=== PATIENT | female | born 1955 | race Caucasian/White ===

== ENCOUNTER 2017-08-28 14:39 | Emergency (ER) | payer OTHER, SELFPAY ==
[2017-08-28 14:41] VITALS: BP 161/86; PULSE 78; RESP 19; TEMP 36.3; O2SAT 97; BMI 25.8
--- NOTE | 2017-08-28 14:57 | ED.VISSUMM ---
- ER Visit Summary Date of Service: 08/28/17 Chief Complaint: Left fourth finger laceration History of Present Illness: The patient is a 62 F presenting with laceration to left fourth digit. This occurred just prior to arrival. She cut her hand on a piece of glass. The glass did not shatter. No other injuries. Her tetanus is up-to-date. Physical Examination: Vitals are stable. Patient is afebrile. Alert no acute distress. HEENT exam is unremarkable. Lungs are clear and equal bilaterally. Heart is regular rate and rhythm. Extremities left 4th digit 1.5 cm laceration. Tendon function is normal. AFROM, NVID Skin is warm and dry. No focal neurologic deficit. Remainder of exam is unremarkable. Emergency Department Course and Treatment: Laceration was repaired under sterile conditions. Anesthetized with lidocaine. Irrigated with saline. 3, 5-0 simple sutures were placed. Patient tolerated this well. Advised wound care instructions. Advised follow-up with primary care physician. Advised return to ED if worsening complaints. Disposition: Discharge home Impression: Left fourth finger laceration, laceration repair This note was generated with [employer] dictation software. It may contain incorrect words, spelling, and punctuation that were not noted in review of the chart prior to signing ED Disposition - Plan for ED Patient: Chief Complaint: Laceration Instructions: ED Laceration Hand Referrals: Lazaro Colby MD [Primary Care Provider] -
== END 2017-08-28 15:38 | disposition home or self-care (01) ==
LOC: ED 15:18
PROVIDERS: Emergency Provider Emergency Medicine; Family Provider Family Medicine; PCP Family Medicine
DX: S61.215A Laceration without foreign body of left ring finger without damage to nail, initial encounter (principal); W25.XXXA Contact with sharp glass, initial encounter; Y93.89 Activity, other specified; Y92.89 Other specified places as the place of occurrence of the external cause; Y99.8 Other external cause status
CPT/HCPCS: 12001; 99284

== ENCOUNTER → 2018-09-17 | Outpatient (CLI) | payer OTHER, SELFPAY ==
[2018-09-25 16:09] LABS: HPV APTIMA, High Risk Negative (Negative)
[2018-09-25 16:10] LABS: HPV Reflexed? YES, CHARGE PATIENT
== END | disposition home or self-care (01) ==
PROVIDERS: Family Provider Family Medicine; PCP Family Medicine; Referring Provider Obstetrics & Gynecology; Visit Provider Obstetrics & Gynecology
DX: Z12.4 Encounter for screening for malignant neoplasm of cervix (principal)
CPT/HCPCS: 87624; 88175; G0145

== ENCOUNTER → 2018-10-08 09:31 | Outpatient (CLI) | payer OTHER, SELFPAY ==
--- NOTE | 2018-10-08 09:37 | US_ITS ---
STUDY: ULTRASOUND BREAST - LEFT REASON FOR EXAM: Female, 63 years old. Palpable lump left breast. TECHNIQUE: Axial and longitudinal images of the LEFT breast were performed with a high resolution ultrasound transducer. COMPARISON: Comparison is made with prior mammogram done earlier today. FINDINGS: LEFT Breast: The palpable abnormality corresponds to a 2.4 cm x 2.3 cm x 1.4 cm cyst at the 1:00 position of the breast at 2 cm from the nipple. US/Breast Limited Unilateral IMPRESSION: The palpable abnormality corresponds to a 2.4 cm x 2.3 cm x 1.4 cm cyst at the 1:00 position breast at 2 cm from the nipple. ASSESSMENT CATEGORY: BIRADS Category 2: Benign. A letter regarding these results will be sent to the patient by the facility within 30 days. Electronically Signed: Corky Messina, at 10:44 EDT , Service support ,
--- NOTE | 2018-10-08 09:37 | BI_ITS ---
MAMMOGRAPHY - BILATERAL DIAGNOSTIC REASON FOR EXAM: Female, 63 years old. Left breast lump. PERTINENT HISTORY: Grandmother with breast cancer. TECHNIQUE: Digital bilateral breast ludwin (3D mammographic acquisition) in the CC and MLO projections. 2-D mediolateral oblique (MLO) and craniocaudad (CC) views of both breasts were obtained. CAD: Full Field Digital Mammography with Computer Added Detection was performed. COMPARISON: Comparison is made with prior mammogram dated December 05, 2016 and November 19, 2015. FINDINGS: Breast Composition: The breasts are extremely dense, which lowers the sensitivity of mammography. There is a 2.4 cm x 2.3 cm well-defined nodule in the upper slightly lateral aspect of the left breast. Correlation with ultrasound is recommended. No other significant abnormalities are identified. BI/DIAG MAMM W/CAD, BILAT IMPRESSION: 2.4 cm x 2.3 cm well-defined nodule in the upper slightly lateral aspect of the left breast. Correlation with ultrasound is recommended. ASSESSMENT CATEGORY: BIRADS Category 0: Incomplete. Need additional imaging evaluation. A letter regarding these results will be sent to the patient by the facility within 30 days. Approximately 10% of breast cancers are not detected by mammography. A normal mammogram should not delay biopsy of a clinically suspicious abnormality. Electronically Signed: Corky Messina, at 10:45 EDT , Service support ,
== END ==
PROVIDERS: Family Provider Family Medicine; PCP Family Medicine; Referring Provider Obstetrics & Gynecology; Visit Provider Obstetrics & Gynecology
DX: N63.23 Unspecified lump in the left breast, lower outer quadrant (principal)
CPT/HCPCS: 76642; 77062; 77066; G0279

== ENCOUNTER 2019-05-27 09:07 | Day surgery (SDC) | payer OTHER, SELFPAY ==
[2019-05-27 09:46] VITALS: BP 141/62; PULSE 75; RESP 16; TEMP 36.5; O2SAT 99; BMI 24.7
[2019-05-27] MEDS: Lactated Ringers 1,000 ML 100 ML IV (09:58)
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
[2019-05-27 11:16] VITALS: BP 141/62; BP 150/74; PULSE 68; RESP 16; TEMP 36.5; O2SAT 100
--- NOTE | 2019-05-27 11:16 | OP.COLON_ITS ---
Patient Name: Audra Mcconnell Procedure Date: 05/27/2019 10:45 AM Date of : 1955 Age: 63 Procedure: Colonoscopy Indications: Screening for colorectal malignant neoplasm Providers: Camila Snyder MD Referring MD: Lazaro Colby Medicines: Monitored Anesthesia Care Patient Profile: This is a 63 year old female. Last Colonoscopy: 10 years ago. Complications: No immediate complications. Procedure: Pre-Anesthesia Assessment: - Prior to the procedure, a History and Physical was performed, and patient medications and allergies were reviewed. The patient's tolerance of previous anesthesia was also reviewed. The risks and benefits of the procedure and the sedation options and risks were discussed with the patient. All questions were answered, and informed consent was obtained. Prior Anticoagulants: The patient has taken no previous anticoagulant or antiplatelet agents. ASA Grade Assessment: I - A normal, healthy patient. After reviewing the risks and benefits, the patient was deemed in satisfactory condition to undergo the procedure. After I obtained informed consent, the scope was passed under direct vision. Throughout the procedure, the patient's blood pressure, pulse, and oxygen saturations were monitored continuously. The pediatric colonoscope was introduced through the anus and advanced to the cecum, identified by the appendiceal orifice, ileocecal valve and palpation. The colonoscopy was performed without difficulty. The patient tolerated the procedure well. The quality of the bowel preparation was good. Scope In: 10:57:34 AM Scope Withdrawal Time 0 hours 8 minutes 46 seconds Scope Out: 11:12:11 AM Total Procedure Duration Time 0 hours 14 minutes 37 seconds Findings: Hemorrhoids were found on perianal exam. Multiple small-mouthed diverticula were found in the sigmoid colon and descending colon. Internal hemorrhoids were found during retroflexion. The hemorrhoids were Grade I (internal hemorrhoids that do not prolapse). The exam was otherwise without abnormality. Impression: - Hemorrhoids found on perianal exam. - Diverticulosis in the sigmoid colon and in the descending colon. - Internal hemorrhoids. - The examination was otherwise normal. - No specimens collected. Recommendation: - Discharge patient to home. - High fiber diet. - Continue present medications. - Repeat colonoscopy in 10 years for screening purposes. Procedure Code(s): --- Professional --- G0121, PT, Colorectal cancer screening; colonoscopy on individual not meeting criteria for high risk Diagnosis Code(s): --- Professional --- Z12.11, Encounter for screening for malignant neoplasm of colon K64.0, First degree hemorrhoids K57.30, Diverticulosis of large intestine without perforation or abscess without bleeding CPT copyright 2017 [employer]. All rights reserved. The codes documented in this report are preliminary and upon brick and block mason review may be revised to meet current compliance requirements. MD Camila Guy MD 05/27/2019 11:15:52 AM This report has been signed electronically. Number of Addenda: 0 Note Initiated On: 05/27/2019 10:45 AM
[2019-05-27 11:21] VITALS: BP 141/62; BP 164/82; PULSE 67; RESP 16; O2SAT 98
[2019-05-27 11:26] VITALS: BP 141/62; BP 167/95; PULSE 72; RESP 16; O2SAT 95
[2019-05-27 11:31] VITALS: BP 141/62; BP 167/85; PULSE 71; RESP 16; TEMP 36.4; O2SAT 100
[2019-05-27 12:04] VITALS: BP 141/62
== END 2019-05-27 12:13 | disposition home or self-care (01) ==
LOC: EN 09:08 → AC 09:09
PROVIDERS: Family Provider Family Medicine; PCP Family Medicine; Referring Provider Family Medicine; Visit Provider Surgery
PROC: 0DJD8ZZ Inspection of Lower Intestinal Tract, Via Natural or Artificial Opening Endoscopic (ICD-10-PCS; CPT 45378; principal; 2019-05-27 10:10)
DX: Z12.11 Encounter for screening for malignant neoplasm of colon (principal); K57.30 Diverticulosis of large intestine without perforation or abscess without bleeding; K64.0 First degree hemorrhoids; Z87.891 Personal history of nicotine dependence
CPT/HCPCS: 45378; J7120

== ENCOUNTER → 2019-07-25 16:41 | Outpatient (CLI) | payer OTHER, SELFPAY ==
[2019-07-25 16:30] VITALS: BMI 25.8
--- NOTE | 2019-07-25 16:43 | RAD_ITS ---
STUDY: X-RAY - LEFT KNEE REASON FOR EXAM: Female, 64 years old. fell 2 weeks ago, left medial pain TECHNIQUE: 3 view(s) of the knee. COMPARISON: None. FINDINGS: Normal visualized distal femur. Normal visualized proximal tibia and fibula. Normal proximal tibiofibular articulation. There is dystrophic ossification in the medial collateral ligament. There are mild age-appropriate degenerative changes. Normal medial femorotibial compartment. Normal lateral femorotibial compartment. Normal patellofemoral articulation. The soft tissue structures are unremarkable. RAD/Knee 4 or More Views IMPRESSION: No acute osseous injury. Electronically Signed: Maria T Munoz, at 17:09 EST Tel , Service support ,
== END ==
PROVIDERS: PCP Family Medicine; Referring Provider Physician Assistant; Visit Provider Physician Assistant
DX: S89.92XA Unspecified injury of left lower leg, initial encounter (principal)
CPT/HCPCS: 73564

== ENCOUNTER → 2019-11-25 16:36 | Outpatient (CLI) | payer OTHER, SELFPAY ==
[2019-07-25 17:43] VITALS: BMI 24.7
[2019-12-03 01:55] LABS: HPV APTIMA, High Risk Negative (Negative); HPV Reflexed? NOT INDICATED
== END ==
PROVIDERS: PCP Family Medicine; Visit Provider Obstetrics & Gynecology
DX: Z12.4 Encounter for screening for malignant neoplasm of cervix (principal)
CPT/HCPCS: 88175; G0145

== ENCOUNTER → 2019-12-09 07:44 | Outpatient (CLI) | payer OTHER, SELFPAY ==
[2019-07-25 17:43] VITALS: BMI 24.7
--- NOTE | 2019-12-09 07:46 | BI_ITS ---
MAMMOGRAPHY - BILATERAL SCREENING REASON FOR EXAM: Female, 64 years old. Routine annual screening examination. PERTINENT HISTORY: Mother with breast cancer. Grandmother with breast cancer. History of prior bilateral stereotactic breast biopsies. TECHNIQUE: Digital bilateral breast mary ann (3D mammographic acquisition) in the CC and MLO projections. 2-D mediolateral oblique (MLO) and craniocaudad (CC) views of both breasts were obtained. CAD: Full Field Digital Mammography with Computer Added Detection was performed. COMPARISON: Comparison is made with prior examination dated October 08, 2018 and December 05, 2016. FINDINGS: Breast Composition: The breasts are extremely dense, which lowers the sensitivity of mammography. Persistent nodule is seen in the upper deep slightly lateral aspect of the left breast. It presently measures 2.5 cm x 2.2 cm x 2.4 cm. This has increased slightly in size as compared to prior study. Prior sonogram demonstrated this to be a cyst. No other significant abnormalities are identified. BI/SCREEN MAMM (CAD) W/MARY ANN BILAT IMPRESSION: Slight increase in size of the previously seen nodule in the left breast as described. Correlation with ultrasound is recommended. ASSESSMENT CATEGORY: BIRADS Category 0: Incomplete. Need additional imaging evaluation. A letter regarding these results will be sent to the patient by the facility within 30 days. Approximately 10% of breast cancers are not detected by mammography. A normal mammogram should not delay biopsy of a clinically suspicious abnormality. [id number] Electronically Signed: Corky Messina, at 10:06 EDT , Service support ,
== END ==
PROVIDERS: PCP Family Medicine; Referring Provider Obstetrics & Gynecology; Visit Provider Obstetrics & Gynecology
DX: Z12.31 Encounter for screening mammogram for malignant neoplasm of breast (principal)
CPT/HCPCS: 77063; 77067

== ENCOUNTER → 2019-12-16 10:05 | Outpatient (CLI) | payer OTHER, SELFPAY ==
[2019-07-25 17:43] VITALS: BMI 24.7
--- NOTE | 2019-12-16 10:07 | US_ITS ---
STUDY: ULTRASOUND BREAST - LEFT REASON FOR EXAM: Female, 64 years old. Abnormal mammogram TECHNIQUE: Axial and longitudinal images of the LEFT breast were performed with a high resolution ultrasound transducer. # OF IMAGES: 8 COMPARISON: 10/08/2018 FINDINGS: LEFT Breast: In the area of concern, at 1:00, 2 cm from the nipple is a complex, septated anechoic cyst measuring 2.7 x 2.5 x 1.6 cm. Although it is mildly increased in size since the previous study continues to demonstrate no suspicious sonographic characteristics. It is anechoic, with posterior enhancement and clearly defined borders. No new suspicious shadowing solid nodules or architectural distortion. US/Breast Limited Unilateral IMPRESSION: Slight increase in size of a complicated, septated cyst at 1:00 2 cm of the nipple corresponding to the concerning lesion. No suspicious sonographic findings, if this cyst is bothersome to the patient should be able to be aspirated under sonographic guidance. ASSESSMENT CATEGORY: BIRADS Category 2: Benign. A letter regarding these results will be sent to the patient by the facility within 30 days. Electronically Signed: Javier Chambers MD at 11:26 EDT , Service support ,
== END ==
PROVIDERS: PCP Family Medicine; Referring Provider Obstetrics & Gynecology; Visit Provider Obstetrics & Gynecology
DX: N63.20 Unspecified lump in the left breast, unspecified quadrant (principal)
CPT/HCPCS: 76642

== ENCOUNTER → 2020-07-20 13:03 | Outpatient (CLI) | payer OTHER, SELFPAY ==
[2020-01-06 13:09] VITALS: BMI 24.7
== END ==
PROVIDERS: PCP Family Medicine; Visit Provider Family Medicine
DX: Z20.828 Contact with and (suspected) exposure to other viral communicable diseases (principal)
CPT/HCPCS: 87635; U0005; U0003

== ENCOUNTER 2020-07-23 09:37 | Emergency (ER) | payer OTHER, SELFPAY ==
[2020-01-06 13:09] VITALS: BMI 24.7
[2020-07-23] VITALS (8 sets, daily range): BP systolic 111–157; BP diastolic 65–75; PULSE 75–87; RESP 16–18; TEMP 35.9–36.8; O2SAT 94–98; BMI 25.9
--- NOTE | 2020-07-23 09:41 | NURSING ---
NO OLD EKGS
--- NOTE | 2020-07-23 09:53 | CT_ITS ---
STUDY: CTA CHEST REASON FOR EXAM: Female, 65 years old. Chest pain RADIATION DOSAGE (If Supplied By Facility): CTDIvol = ( 10.68 ) mGy, DLP = ( 287.19 ) mGycm TECHNIQUE: The examination was performed with the intravenous administration of IV 100mL Isovue-370. Post-processing of the angiographic images was performed, with multiplanar reformation and 3D reconstruction. Individualized dose optimization techniques were used for this CT. COMPARISON: None. FINDINGS: Mildly enlarged right axillary lymph nodes. Small left axillary lymph nodes. Normal enhancement of the main pulmonary artery and right and left pulmonary arteries. Normal enhancement of the bilateral peripheral pulmonary arteries. There is no demonstrated pulmonary embolism. Normal thoracic aorta and visualized great vessels. There is no demonstrated aortic dissection. Normal heart and pericardium. Normal mediastinum. Normal hilar regions. Normal visualized trachea and bronchi. The lungs are well expanded. Findings suggestive of scarring at both lung apices. There is a 9.5 mm x 9.7 mm scirrhous nodule in the posteromedial aspect of the right upper lobe. Infiltration in the posterior segment of the right upper lobe with evidence of a subpleural blebs. There is evidence of consolidation in the superior segment of the right lower lobe as well as in the peripheral aspect of the right middle lobe and left lower lobe. There is a 9.4 mm noncalcified nodule in the anterior aspect of the right middle lobe. This has increased in size as compared to prior study dated 10/10/2009. It previously measured 5 mm. Normal pleura. Normal chest wall structures. Normal osseous structures. Normal visualized upper abdomen. CT/CTA Chest W/WO Contrast IMPRESSION: Scarring at both lung apices with irregular nodule in the posterior aspect of the right upper lobe. Infiltration in both lungs as described worse in the left lower lobe. 9.4 mm noncalcified nodule in the anterior aspect of the right middle. Electronically Signed: Corky Messina MD at 12:00 EST , Service support ,
--- NOTE | 2020-07-23 09:53 | EKG12_ITS ---
Test Reason : CP Blood Pressure : / mmHG Vent. Rate : 079 BPM Atrial Rate : 079 BPM P-R Int : 172 ms QRS Dur : 074 ms QT Int : 382 ms P-R-T Axes : 075 039 063 degrees QTc Int : 438 ms Normal sinus rhythm Normal ECG Confirmed by EJ GAGNON, AMADO ([id number]), primer expeditor and drier DEJON CHEATHAM ([id number]) on 07/27/2020 9:55:23 AM Referred By: MIGUEL Confirmed By:MELINDA PAGAN MD
--- NOTE | 2020-07-23 09:56 | ED.VISSUMM ---
- ER Visit Summary Date of Service: 07/23/20 Chief Complaint: Chest pain History of Present Illness: The patient is a 65 F who presents with chest pain that has been getting worse over the past 5 days. Patient saw her primary care physician today who referred her to the emergency department. Patient had a recent COVID-19 test which was negative 3 days ago. Patient had a negative influenza swab today. Patient states she has pressure in her chest. Patient states it radiates into her back. Patient states it is worse when she stands up and moves. Patient states it is better when she rests. Patient admits to some shortness of breath and generalized weakness. Patient admits to some diaphoresis at night. Patient states she just feels weak all over. Patient also admits to generalized aches and myalgias. Physical Examination: Vital signs are stable. Patient is afebrile. Patient is in no acute distress. Oral mucosa is pink and moist. Neck is supple. Trachea is midline. There is no JVD noted. Heart was regular rate and rhythm. Lungs are clear and equal bilaterally. Abdomen is soft. Bowel sounds are normal. There is no tenderness. There is no rebound or guarding noted. Skin is warm dry. Cranial nerves II through XII are intact. There are no focal motor or sensory deficits noted. Extremities are intact. There is no calf tenderness or edema. Test Results: EKG was obtained. On my interpretation, there is a normal sinus rhythm with a rate of 79. There are no acute ST or T wave changes. IN interval was normal. QRS interval was normal. QT interval was normal. Ty Ty was normal. CBC shows a mild leukocytosis of 12.1. Basic metabolic profile was essentially within normal limits. Troponin is normal. CTA of the chest was obtained. There is scarring in the apices of the lungs bilaterally. There are infiltrates noted bilaterally but worse in the left lower lobe. Emergency Department Course and Treatment: Patient was given IV fluids. Patient was given aspirin and sublingual nitroglycerin. Patient was feeling better on reevaluation. Patient's vital signs remained stable. Patient is not hypoxic. Patient wants to go home. Patient was given a dose of Rocephin here. Patient was given oral dose of Zithromax. Patient was given a prescription for Zithromax. Patient was instructed to follow-up with her primary care physician in 5 to 7 days. Patient understood and was agreeable with the plan. All questions were answered. Disposition: Discharge home Impression: 1. Pneumonia This note was generated with [employer] dictation software. It may contain incorrect words, spelling, and punctuation that were not noted in review of the chart prior to signing ED Disposition - Plan for ED Patient: Disposition: Home or Assisted Living Diagnosis: Pneumonia Instructions: ED Pneumonia (Adult) Prescriptions: Azithromycin [Zithromax] 250 mg PO DAILY #4 tab Transmission Status: Pending to [facility]30 Referrals: Lazaro Colby MD [Primary Care Provider] -
[2020-07-23] MEDS: Aspirin 81 MG TAB.CHEW 324 MG PO (10:20)
[2020-07-23] MEDS: 0.9% Normal Saline 1,000 ML 1000 ML IV (10:22)
[2020-07-23 10:30] LABS: Basophil# 0.03 X10^3/uL; Basophil% 0.2 % (0-1); Eosinophil# 0.08 X10^3/uL; Eosinophils% 0.7 % (0-5); Hematocrit 40.7 % (37-47); Hemoglobin 14.8 g/dL (12.0-15.0); Lymphocyte % 10.8 % (19-41); Mean Corp Hgb Conc 36.4 g/dL (32-36); Mean Corpuscular Hgb 32.5 pg (27.0-32.0); Mean Corpuscular Volume 89.3 fL (81-99); Mean Platelet Vol. 9.9 fl (6.2-12.0); Monocyte# 0.65 X10^3/uL; Monocyte% 5.4 % (0-10); NRBC Flagged by Analyzer 0 % (0-5); Neutrophil # 9.95 X10^3/uL (2.7-7.7); Neutrophil % 82.6 % (47-70); Platelet Count 443 K/mm3 (150-450); RBC Distribution Width CV 12.1 % (11.6-14.6); RBC Distribution Width SD 39.8 fl (35.1-43.9); Red Blood Count 4.56 M/mm3 (4.2-5.4); White Blood Count 12.1 K/mm3 (4.4-11.0)
[2020-07-23 10:48] LABS: Anion Gap 8 (5-15); BUN 12 mg/dL (7-18); Calcium,Total 9.8 mg/dL (8.5-10.1); Chloride 98 mmol/L (98-107); Creatinine, Serum 0.75 mg/dL (0.55-1.02); EST Glomerular Filtration Rate 83 mL/min (>60); Est Glom Filt Rate - Afr Amer 100 mL/min (>60); Estimated Creatinine Clearance 71.87 ml/min; Glucose 119 mg/dL (74-106); Potassium 3.9 mmol/L (3.5-5.1); Sodium Level 134 mmol/L (136-145)
[2020-07-23] MEDS: Nitroglycerin SL (ED/IMG/CATH) 0.4 MG TABLET SUBLINGUAL ×3 (10:53→11:04)
[2020-07-23] MEDS: Azithromycin 250 MG Tablet 500 MG PO (12:27)
== END 2020-07-23 13:28 | disposition home or self-care (01) ==
PROVIDERS: Emergency Provider Emergency Medicine; PCP Family Medicine
DX: J18.9 Pneumonia, unspecified organism (principal); Z87.891 Personal history of nicotine dependence; Z79.82 Long term (current) use of aspirin
CPT/HCPCS: 71275; 80048; 84484; 85025; 93005; 96365; 99285; J7030; J7050; Q9967; A4216; J0696

== ENCOUNTER → 2021-04-05 10:40 | Outpatient (CLI) | payer OTHER, SELFPAY ==
--- NOTE | 2021-04-05 10:43 | BI_ITS ---
MAMMOGRAPHY - BILATERAL SCREENING REASON FOR EXAM: Female, 65 years old. Routine annual screening examination. PERTINENT HISTORY: Mother with breast cancer. Grandmother with breast cancer. Prior left ultrasound guided cyst drainage and bilateral stereotactic biopsies. TECHNIQUE: Digital bilateral breast mary ann (3D mammographic acquisition) in the CC and MLO projections. 2-D mediolateral oblique (MLO) and craniocaudad (CC) views of both breasts were obtained. CAD: Full Field Digital Mammography with Computer Added Detection was performed. COMPARISON: Comparison is made with prior study dated 12/09/2019 and 10/08/2018. FINDINGS: Breast Composition: The breasts are extremely dense, which lowers the sensitivity of mammography. There are no dominant masses or suspicious calcifications. The previously seen 2.5 sign by 2.2 cm nodule in the deep upper slightly outer aspect of the left breast is not seen at this time and is included with the patient''s prior cyst aspiration. No other significant abnormalities are identified. BI/SCRN MAMM (CAD)W/MARY ANN BILAT IMPRESSION: Stable bilateral screening mammogram. Yearly follow-up mammogram recommended. (A) ASSESSMENT CATEGORY: BIRADS Category 2: Benign. A letter regarding these results will be sent to the patient by the facility within 30 days. Approximately 10% of breast cancers are not detected by mammography. A normal mammogram should not delay biopsy of a clinically suspicious abnormality. [id number] Electronically Signed: Corky Messina MD at 12:15 EST , Service support ,
== END ==
PROVIDERS: PCP Family Medicine; Referring Provider Obstetrics & Gynecology; Visit Provider Obstetrics & Gynecology
DX: Z12.31 Encounter for screening mammogram for malignant neoplasm of breast (principal)
CPT/HCPCS: 77063; 77067

== ENCOUNTER → 2021-04-15 14:46 | Outpatient (CLI) | payer OTHER, SELFPAY ==
--- NOTE | 2021-04-15 14:55 | CT_ITS ---
STUDY: CT Chest W/O Contrast Injection 04/15/2021 3:46 PM REASON FOR EXAM: Female, 65 years old. LUNG NODULES Individualized dose optimization techniques were used for this CT. TECHNIQUE: Transaxial imaging was performed withoutIV contrast material. COMPARISON: 07.23.20. FINDINGS: There are degenerative changes of the shoulders. There is no pneumothorax. There is no demonstrated pleural abnormality. There is a 7.3 mm right middle lobe nodule. SE:2 IM: 62. Enlarged axillary lymph nodes. The infiltrates in the upper lobes have become more consolidated. This is concerning for pneumonia. Cervical spinal fusion hardware noted. There are calcifications of the coronary arteries. There are multiple small lymph nodes within the mediastinum, which are normal in size and morphology most compatible with reactive lymph hyperplasia. Normal hilar regions. Normal pulmonary arteries. There is atherosclerotic calcification of the aortic arch with tortuosity and elongation of the aortic arch and descending thoracic aorta. There are multi-level degenerative changes of the thoracic spine. There are no acute findings of the upper abdomen. CT/Chest without Contrast IMPRESSION: Decrease in size of the right middle lobe nodule. ACR Lung CT Screening Reporting T Data System (Lung-RADS) score: 2 - Benign Appearance or Behavior. Recommend continued annual screening with low-dose CT (LDCT) in 12 months. The infiltrates in the upper lobes have become more consolidated. This is concerning for pneumonia. Axillary adenopathy. Electronically Signed: David Silva MD at 16:33 EST , Service support ,
== END ==
PROVIDERS: PCP Family Medicine; Visit Provider Internal Medicine Critical Care Medicine
DX: R91.8 Other nonspecific abnormal finding of lung field (principal)
CPT/HCPCS: 71250

== ENCOUNTER → 2021-12-01 | Outpatient (CLI) | payer SELFPAY ==
[2021-12-06 20:05] LABS: HPV Reflexed? NOT INDICATED
== END | disposition home or self-care (01) ==
LOC: LABSPEC 16:09
PROVIDERS: PCP Family Medicine; Visit Provider Obstetrics & Gynecology
DX: Z12.4 Encounter for screening for malignant neoplasm of cervix (principal)
CPT/HCPCS: 88175; G0145

== ENCOUNTER → 2022-05-16 | Outpatient (CLI) | payer MEDICARE, SELFPAY ==
--- NOTE | 2022-05-16 08:33 | BI_ITS ---
MAMMOGRAPHY - BILATERAL SCREENING REASON FOR EXAM: Female, 66 years old. Routine annual screening examination. PERTINENT HISTORY: Mother with breast cancer. Grandmother with breast cancer. TECHNIQUE: Digital bilateral breast mary ann (3D mammographic acquisition) in the CC and MLO projections. 2-D mediolateral oblique (MLO) and craniocaudad (CC) views of both breasts were obtained. CAD: Full Field Digital Mammography with Computer Added Detection was performed. COMPARISON: Comparison is made with prior study dated 04/05/2021 and 12/09/2019 FINDINGS: Breast Composition: The breasts are extremely dense, which lowers the sensitivity of mammography. There are no dominant masses or suspicious calcifications. Stable benign-appearing bilateral axillary lymph nodes. No other significant abnormalities are identified. There has been no significant change since the prior study. BI/SCRN MAMM (CAD)W/MARY ANN BILAT IMPRESSION: Stable bilateral screening mammogram. Yearly follow-up mammogram recommended. (A) ASSESSMENT CATEGORY: BIRADS Category 2: Benign. A letter regarding these results will be sent to the patient by the facility within 30 days. Approximately 10% of breast cancers are not detected by mammography. A normal mammogram should not delay biopsy of a clinically suspicious abnormality. [id number] Electronically Signed: Corky Messina MD at 12:53 EST ,
== END | disposition home or self-care (01) ==
LOC: OPBI 08:29
PROVIDERS: PCP Family Medicine; Referring Provider Family Medicine; Visit Provider Family Medicine
DX: Z12.31 Encounter for screening mammogram for malignant neoplasm of breast (principal)
CPT/HCPCS: 77063; 77067

== ENCOUNTER → 2022-09-05 | Outpatient (CLI) | payer MEDICARE, SELFPAY ==
--- NOTE | 2022-09-05 07:13 | CT_ITS ---
INDICATION: Known nodule EXAMINATION: CT CHEST WITHOUT CONTRAST - CT Chest W/O Contrast Injection TECHNIQUE: Helically acquired images were obtained of the chest. A radiation dose optimization technique was used for this scan. IV Contrast dosage and agent: None. COMPARISON: 04/13/2021 FINDINGS: LUNGS, PLEURA AND LARGE AIRWAYS: Lung windows show stable nonspecific pleural thickening/scarring in the apices. Chronic interstitial changes noted in both lung bowman. There is a stable noncalcified 7.3 mm nodule in the right middle lobe on axial image 62. It is unchanged in 18 months. Another six-month follow-up is recommended to assure stability. If it is unchanged at that time no specific further follow-up would be needed. There is no organized infiltrate, effusion, or new suspicious noncalcified mass. THYROID: No thyroid lesions. HEART AND PERICARDIUM: Heart size is normal. No pericardial effusion. CORONARY ARTERIES: Coronary artery calcification is seen. VESSELS: Thoracic aorta is not dilated. MEDIASTINUM AND ANGELICA: No suspicious mediastinal or hilar adenopathy. Esophagus is unremarkable. No hiatal hernia. UPPER ABDOMEN: Limited cuts through the upper abdomen do not show a suspicious solid organ abnormality but there is a hint that there may be a dilated left hydronephrosis. Please correlate with clinical exam. BONES: No suspicious lytic or blastic abnormality. CT/Chest without Contrast IMPRESSION: Stable 7.3 mm noncalcified nodule in the right middle lobe . Another six-month follow-up is recommended to assure stability. If no interval changes noted at that time, no specific further follow-up would be needed. Stable fibrotic scarring in the lung apices. No acute pulmonary process Calcified coronary vessels Degenerative bony changes Limited cuts through the upper abdomen suggest possible obstructive uropathy in the left kidney. Please correlate with clinical exam Electronically Signed: Javier Chambers MD at 8:00 EDT ,
== END | disposition home or self-care (01) ==
LOC: CT 07:11
PROVIDERS: PCP Family Medicine; Referring Provider Internal Medicine Critical Care Medicine; Visit Provider Internal Medicine Critical Care Medicine
DX: R91.8 Other nonspecific abnormal finding of lung field (principal)
CPT/HCPCS: 71250

== ENCOUNTER → 2022-10-13 | Outpatient (CLI) | payer MEDICARE, SELFPAY ==
--- NOTE | 2022-10-13 14:51 | BD_ITS ---
STUDY: DUAL ENERGY X-RAY ABSORPTIOMETRY / DXA REASON FOR EXAM: Female, 67 years old. [id number] TECHNIQUE: Bone Mineral Density (BMD) measurements of lumbar spine and bilateral hips were obtained. COMPARISON: None. FINDINGS: Lumbar Spine (L1-L4): g/cm2 (1.494) / T-score (4.2) / Z-score (5.9) Findings are suggestive of normal bone density with a low fracture risk. Left Femur Total: g/cm2 (1.038) / T-score (0.8) / Z-score (2.0) Left Femoral Neck: g/cm2 (1.017) / T-score (1.5) / Z-score (3.0) Right Femur Total: g/cm2 (0.895) / T-score (-0.4) / Z-score (0.9) Right Femoral Neck: g/cm2 (0.844) / T-score (0.0) / Z-score (1.5) BD/Dexa Bone Density Study IMPRESSION: The patient is considered normal as outlined below according to World Pedro Organization (WHO) criteria with a low fracture risk. Reference Information: The T-score is the number of standard deviations above or below the standard which is normal for young adults at their peak bone mineral density. The World Health Organization (WHO) interprets the T-scores as follows: Above -1 Normal bone density Between -1 and -2.5 Osteopenia Equal to / or below -2.5 Osteoporosis As a practical clinical guideline, osteopenia may be graded as follows: Mild -1 through -1.5 Moderate -1.6 through -2.0 Severe -2.1 through -2.4 The Z-score is the number of standard deviations above or below age-matched controls. A Z-score of less than -1.5 would be considered abnormal. References: 1. NIH Osteoporosis and Related Bone Diseases www osteo.org 2. International Society for Clinical Densitometry www iscd.org 3. National Osteoporosis Foundation www nof.org Electronically Signed: Corky Messina MD at 14:12 EDT ,
== END | disposition home or self-care (01) ==
PROVIDERS: PCP Family Medicine; Referring Provider Family Medicine; Visit Provider Family Medicine
DX: Z78.0 Asymptomatic menopausal state (principal)
CPT/HCPCS: 77080

== ENCOUNTER → 2022-10-14 | Outpatient (CLI) | payer MEDICARE, SELFPAY ==
[2022-10-14 10:48] LABS: Anion Gap 5 (5-15); BUN 20 mg/dL (7-18); BUN/Creat Ratio 30.9 RATIO (10-20); Calcium,Total 9.2 mg/dL (8.5-10.1); Chloride 105 mmol/L (98-107); Cholesterol 233 mg/dL (200); Creatinine, Serum 0.65 mg/dL (0.55-1.02); EST Glomerular Filtration Rate 98 mL/min (>60); Est Glom Filt Rate - Afr Amer 118 mL/min (>60); Glucose 106 mg/dL (74-106); High Density Lipoprotein 80 mg/dL; Potassium 3.9 mmol/L (3.5-5.1); Sodium Level 138 mmol/L (136-145); Thyroid Stim Hormone (TSH) 4.66 uIU/mL (0.358-3.74); Triglycerides 138 mg/dL; Very Low Density Lipoprotein 28 mg/dL (5-40)
[2022-10-14 11:13] LABS: Hepatitis C Antibody Non-Reactive (Nonreactive); Vitamin D,25 Hydroxy 33.8 ng/mL
[2022-10-15 04:07] LABS: V-Zoster IgG (Immunity) 1376 index (Immune >165)
== END | disposition home or self-care (01) ==
LOC: MTLAB 08:51
PROVIDERS: PCP Family Medicine; Referring Provider Family Medicine; Visit Provider Family Medicine
DX: I87.8 Other specified disorders of veins (principal); R91.1 Solitary pulmonary nodule; G25.81 Restless legs syndrome; N63.0 Unspecified lump in unspecified breast; K21.9 Gastro-esophageal reflux disease without esophagitis; Z01.84 Encounter for antibody response examination; Z13.1 Encounter for screening for diabetes mellitus; Z11.59 Encounter for screening for other viral diseases; Z13.29 Encounter for screening for other suspected endocrine disorder; Z13.220 Encounter for screening for lipoid disorders
CPT/HCPCS: 36415; 80048; 80061; 82306; 84439; 84443; 86787; 86803

== ENCOUNTER → 2022-10-17 | Outpatient (CLI) | payer MEDICARE, SELFPAY ==
--- NOTE | 2022-10-17 08:06 | AAAS_ITS ---
Reason For Study: SCREENING Aorta Measurements Aorta Doppler Measurements Proximal aorta measures1.9 x 1.91cm. in cross- Peak systolic flow velocities within the proximal sectional axis. aorta measure 43.1 cm/sec. Proximal aorta measures1.91cm. in longitudinal Peak systolic flow velocities within the mid aorta axis. measure 45.8 cm/sec. Mid aorta measures2.04 x 2.02cm. in cross- Peak systolic flow velocities within the distal sectional axis. aorta measure 39.4 cm/sec. Mid aorta measures2.03cm. in longitudinal axis. Distal aorta measures1.51 x 1.41cm. in cross- sectional axis. Distal aorta measures1.42cm. in longitudinal axis. Left Iliac Artery Left iliac artery measures 1.07 x 1.0 cm. in the cross-sectional axis. Left iliac artery measures 1.0 cm. in the longitudinal axis. Peak systolic velocity in the left iliac artery measures 115.4 cm/sec. Right Iliac Artery Right iliac artery measures 1.13 x 1.09 cm. in the cross-sectional axis. Right iliac artery measures 1.01 cm. in the longitudinal axis. Peak systolic velocity in the right iliac artery measures 131.3 cm/sec. Procedure Aorta IVC Iliac vasculature or bypass grafts [id number]. Exam performed in department. VL/AAA Screening Interpretation Summary Aorta patent, normal caliber. Bilateral iliac arteries patent, normal caliber. Ordering Physician: Jose Carlos Nettles Referring Physician: Jose Carlos Nettles Performed By: Araceli Painter, HANY, RVT
--- NOTE | 2022-10-17 08:33 | US_ITS ---
STUDY: ULTRASOUND BREAST - LEFT REASON FOR EXAM: 67-year-old female with concerns for palpable left breast mass. TECHNIQUE: Real-time grayscale and color sonographic images of the upper breasts was performed. # OF IMAGES: 22 COMPARISON: Left breast ultrasound 12/16/2019. Mammogram from 05/16/2022, 04/05/2021. FINDINGS: The left breast upper breast in the clinical area of concern was assessed from the 11:00 to 2:00 position. At the site of palpable lump, there is a 1.4 x 2.0 x 1.0 cm simple appearing cyst at the 1:00 position approximately 2.0 cm from the nipple. This demonstrates clearly defined borders, anechoic echogenicity, and posterior acoustic enhancement with no abnormal vascularity. This is in the same location as a previously seen cyst and has decreased in size, previously measuring 2.7 x 2.5 x 1.6 cm. The remainder of the upper breast in the clinical area of concern was assessed demonstrating normal fibroglandular tissue with no abnormal masses. US/Breast Limited Unilateral IMPRESSION: 1.4 x 2.0 x 1.0 cm simple appearing cyst in the left breast at the 1:00 position, approximately 2.0 cm from the nipple has decreased in size from 2019. ASSESSMENT CATEGORY: BIRADS Category 2: Benign. A letter regarding these results will be sent to the patient by the facility within 30 days. RECOMMENDATION: Return to regularly scheduled annual screening mammogram in 6 months. If clinical concerns for new or enlarging palpable mass, follow-up with ultrasound and mammogram is recommended if clinically warranted. Electronically Signed: Tristan Wray MD at 11:33 EDT ,
== END | disposition home or self-care (01) ==
PROVIDERS: PCP Family Medicine; Referring Provider Family Medicine; Visit Provider Family Medicine
DX: N63.0 Unspecified lump in unspecified breast (principal); Z13.6 Encounter for screening for cardiovascular disorders; R92.8 Other abnormal and inconclusive findings on diagnostic imaging of breast
CPT/HCPCS: 76642; 76706

== ENCOUNTER → 2023-03-30 | Outpatient (CLI) | payer MEDICARE, SELFPAY ==
[2023-03-30 18:04] LABS: T4 Free Direct 0.84 ng/dL (0.76-1.46); Thyroid Stim Hormone (TSH) 3.69 uIU/mL (0.358-3.74)
== END | disposition home or self-care (01) ==
LOC: MTLAB 15:37
PROVIDERS: PCP Family Medicine; Referring Provider Family Medicine; Visit Provider Family Medicine
DX: R79.89 Other specified abnormal findings of blood chemistry (principal); Z79.899 Other long term (current) drug therapy
CPT/HCPCS: 36415; 84439; 84443

== ENCOUNTER → 2023-04-10 | Outpatient (CLI) | payer MEDICARE, SELFPAY ==
[2023-04-14 14:09] LABS: HPV APTIMA, High Risk Negative (Negative)
[2023-04-14 19:14] LABS: HPV Reflexed? YES, CHARGE PATIENT
== END | disposition home or self-care (01) ==
PROVIDERS: PCP Family Medicine; Visit Provider Nurse Practitioner Family
DX: Z00.00 Encounter for general adult medical examination without abnormal findings (principal)
CPT/HCPCS: 87624; 88175; G0145

== ENCOUNTER → 2023-04-24 | Outpatient (CLI) | payer MEDICARE, SELFPAY ==
--- NOTE | 2023-04-24 14:33 | US_ITS ---
STUDY: ULTRASOUND OF THE FEMALE PELVIS - COMPLETE REASON FOR EXAM: Female, 67 years old. Post menopausal bleeding LMP: TECHNIQUE: TECHNICAL QUALITY: Adequate. COMPARISON: None. FINDINGS: The uterus been surgically removed there is a midline structure towards the cervix which appears to be possibly an ovary measuring 2.1 x 1.2 cm. The technologist described this as the cervix however this may represent a medially located ovary rather than the cervix given its shape and morphology. There is no significant free fluid. The left ovary is not visualized. The pre void volume of the bladder was ml. The post void volume of the bladder was ml. Polycystic ovary disease: No. The bladder volume is 218. There is visualized mild wall thickening. US/Pelvic w/ Transvaginal IMPRESSION: Status post hysterectomy nonvisualization of the uterus. The ovaries are not well visualized. This patient states she had a oophorectomy not sure which ovary was removed. There is a structure within the pelvis that is morphologically suggestive of a medially located possibly right ovary, the differential include the possibility of nabothian cysts in the remaining cervix.. Given the clinical history recommend consideration for follow-up MRI of the pelvis. Electronically Signed: Leonila Atkins MD at 5:59 EST ,
== END | disposition home or self-care (01) ==
PROVIDERS: PCP Family Medicine; Referring Provider Nurse Practitioner Family; Visit Provider Nurse Practitioner Family
DX: N95.0 Postmenopausal bleeding (principal)
CPT/HCPCS: 76830; 76856

== ENCOUNTER → 2023-05-17 | Outpatient (CLI) | payer MEDICARE, SELFPAY ==
--- NOTE | 2023-05-17 07:51 | BI_ITS ---
MAMMOGRAPHY - BILATERAL SCREENING REASON FOR EXAM: Female, 67 years old. Routine annual screening examination. PERTINENT HISTORY: Mother with breast cancer. Grandmother with breast cancer. History of remote bilateral stereotactic breast biopsies. TECHNIQUE: Digital bilateral breast mary ann (3D mammographic acquisition) in the CC and MLO projections. 2-D mediolateral oblique (MLO) and craniocaudad (CC) views of both breasts were obtained. CAD: Full Field Digital Mammography with Computer Added Detection was performed. COMPARISON: Comparison is made with prior study dated May 16, 2022 and April 05, 2021. FINDINGS: Breast Composition: The breasts are extremely dense, which lowers the sensitivity of mammography. There are no dominant masses or suspicious calcifications. A tissue clip marker is seen in the upper lateral aspect of the right breast. This is unchanged. Stable bilateral axillary lymph nodes. No other significant abnormalities are identified. There has been no significant change since the prior study. BI/SCRN MAMM (CAD)W/MARY ANN BILAT IMPRESSION: Stable bilateral screening mammogram. Yearly follow-up mammogram recommended. (A) ASSESSMENT CATEGORY: BIRADS Category 2: Benign. A letter regarding these results will be sent to the patient by the facility within 30 days. Approximately 10% of breast cancers are not detected by mammography. A normal mammogram should not delay biopsy of a clinically suspicious abnormality. [id number] Electronically Signed: Corky Messina MD at 9:15 EST ,
== END | disposition home or self-care (01) ==
LOC: OPBI 07:50
PROVIDERS: PCP Family Medicine; Referring Provider Family Medicine; Visit Provider Family Medicine
DX: Z12.31 Encounter for screening mammogram for malignant neoplasm of breast (principal)
CPT/HCPCS: 77063; 77067

== ENCOUNTER → 2023-06-02 | Outpatient (CLI) | payer MEDICARE, SELFPAY ==
--- NOTE | 2023-06-02 08:31 | MRI_ITS ---
STUDY: MR PELVIS WITH T WITHOUT CONTRAST REASON FOR EXAM: Female, 68 years old. post menopausal bleeding, FEMALE PELVIS, NO PAIN TECHNIQUE: Standardized fat and water weighted pulse sequences were obtained in all 3 orthogonal planes, pre-and post contrast administration. IV CLARISCAN 15ML was administered for the contrast portion of the examination. COMPARISON: Pelvic ultrasound dated April 24, 2023 FINDINGS: Prior supracervical hysterectomy. The cervical canal contains numerous nabothian cysts and is abnormally and significantly thickened along the posterior and left side of the wall with masslike projection of the mucosa concerning for malignancy. A focal small 1.39 cm proximal cervical mass projecting into the canal is seen on image 15/32 series 5, that demonstrates enhancement on the postcontrast study, very concerning for malignancy until proven otherwise. The right ovary is non-visualized. There is no visualized right adnexal mass or complex lesion. The left ovary is non-visualized. There is no visualized left adnexal mass or complex lesion. There is no fluid in the cul-de-sac. Normal urinary bladder. Normal visualized small intestine. There are multiple colonic diverticula of the sigmoid colon consistent with chronic diverticulosis. There is no pelvic fluid. There is no pelvic mass lesion or lymphadenopathy. Normal osseous structures. Normal abdominal wall. MRI/Pelvis W/WO Contrast IMPRESSION: Abnormal thickened masslike appearance of the cervix concerning for malignancy. Refer to gynecology for further assessment. 1. Prior supracervical hysterectomy. The cervical canal contains numerous nabothian cysts and is abnormally and significantly thickened along the posterior and left side of the wall with masslike projection of the mucosa concerning for malignancy. A focal small 1.39 cm proximal cervical mass projecting into the canal is seen on image 15/32 series 5, that demonstrates enhancement on the postcontrast study, very concerning for malignancy until proven otherwise. Electronically Signed: Kurt Russ MD at 14:45 EST ,
[2023-06-02 08:57] LABS: CREATININE FINGERSTICK < 1.0 mg/dL (0.55-1.02); EGFR FINGERSTICK > 60.0000 mL/min (>60)
== END | disposition home or self-care (01) ==
PROVIDERS: PCP Family Medicine; Referring Provider Nurse Practitioner Family; Visit Provider Nurse Practitioner Family
DX: N95.0 Postmenopausal bleeding (principal)
CPT/HCPCS: 72197; A9575

== ENCOUNTER → 2024-02-19 | Outpatient (CLI) | payer MEDICARE, SELFPAY ==
[2024-02-19 17:54] LABS: Hematocrit 36.4 % (37-47); Mean Corpuscular Hgb 29.8 pg (27.0-32.0); Mean Corpuscular Volume 90.3 fL (81-99); Platelet Count 424 K/mm3 (150-450); RBC Distribution Width CV 12.8 % (11.6-14.6); RBC Distribution Width SD 42.5 fl (35.1-43.9); Red Blood Count 4.03 M/mm3 (4.2-5.4); White Blood Count 9.1 K/mm3 (4.4-11.0)
[2024-02-19 18:34] LABS: Anion Gap 6 (5-15); BUN 17 mg/dL (7-18); BUN/Creat Ratio 28.6 RATIO (10-20); Calcium,Total 9.5 mg/dL (8.5-10.1); Chloride 104 mmol/L (98-107); Creatinine, Serum 0.59 mg/dL (0.55-1.02); EST Glomerular Filtration Rate 107 mL/min (>60); Est Glom Filt Rate - Afr Amer 130 mL/min (>60); Glucose 119 mg/dL (74-106); Magnesium 1.6 mg/dL (1.6-2.6); Potassium 3.6 mmol/L (3.5-5.1); Sodium Level 138 mmol/L (136-145)
== END | disposition home or self-care (01) ==
LOC: MFPLAB 15:54
PROVIDERS: PCP Family Medicine; Visit Provider Family Medicine
DX: I10 Essential (primary) hypertension (principal)
CPT/HCPCS: 36415; 80048; 83735; 84443; 85027

== ENCOUNTER → 2024-05-27 | Outpatient (CLI) | payer MEDICARE, SELFPAY ==
--- NOTE | 2024-05-27 10:23 | BI_ITS ---
MAMMOGRAPHY - BILATERAL SCREENING 3-D TOMOSYNTHESIS REASON FOR EXAM: Female, 68 years old. SCREENING PERTINENT HISTORY: No significant family history. TECHNIQUE: 2-D mammograms and 3-D Tomosynthesis of the breast (s) were performed. CAD was performed. COMPARISON: 05/17/2023 FINDINGS: The breast composition is heterogeneously dense that can obscure small breast masses. Scattered benign calcifications are seen. No dense spiculated masses or suspicious microcalcifications are identified. No architectural distortion is identified. There is no skin thickening or retraction. There has been no significant change since the prior study. BI/SCRN MAMM (CAD)W/MARY ANN BILAT IMPRESSION: No mammographic signs of malignancy. Routine yearly mammograms recommended. ASSESSMENT CATEGORY: BIRADS Category 1: Negative. A letter regarding these results will be sent to the patient by the facility within 30 days. FOLLOW UP RECOMMENDATION: Yearly follow up mammogram recommended. (A) Approximately 10% of breast cancers are not detected by mammography. A normal mammogram should not delay biopsy of a clinically suspicious abnormality. Electronically Signed: Joe Louis MD at 20:43 EST ,
== END | disposition home or self-care (01) ==
LOC: OPBI 10:21
PROVIDERS: PCP Family Medicine; Referring Provider Family Medicine; Visit Provider Family Medicine
DX: Z12.31 Encounter for screening mammogram for malignant neoplasm of breast (principal)
CPT/HCPCS: 77063; 77067

== ENCOUNTER 2024-09-14 14:23 | Emergency (ER) | payer MEDICARE, SELFPAY ==
[2024-09-14 14:24] VITALS: BP 135/65; PULSE 77; RESP 19; TEMP 36.7; O2SAT 98
--- NOTE | 2024-09-14 14:54 | EX.ED.UPPERE ---
HPI History of Present Illness HPI Narrative: Patient presents with laceration to her left index finger that occurred today. Patient states she was sharpening a knife when it accidentally slipped and cut her finger. Patient states the bleeding has been persistent. Patient describes her pain as throbbing. Patient states it is worse when she bends her finger. Patient states it is better with rest. Patient denies any paresthesias or weakness. Patient states her last tetanus was on 09/26/2022. Chief Complaint: Laceration Informant: patient Occured/Mechanism Comment: Accidentally cut with a knife Onset/Context/Timing Onset: Today Context: Sudden Onset Timing: Continuous Quality of Pain: Throbbing Location: Left index finger Worsened by: Flexion Relieved by: Rest Associated Symptoms Associated Symptoms: Negative for Parasthesia, Weakness or Loss of Funtion [facility] Medical History (Updated 09/14/24 @ 16:[address] Gutierrez Rodriguez, DO) Hypertension Abnormal mammogram of left breast Chronic neck and back pain Shoulder pain Home Medications ?Medication ?Instructions ?Recorded ?Last Taken ?Type aspirin 81 mg tablet,delayed 81 mg PO DAILY 05/20/19 05/19/19 History release famotidine 20 mg tablet 20 mg PO DAILY 07/23/20 Unknown History multivitamin 1 ea PO DAILY 07/23/20 Unknown History alprazolam 0.5 mg tablet 0.5 mg PO DAILY PRN 06/15/23 Unknown History ipratropium bromide 42 mcg (0.06 2 spray intranasal BID 06/15/23 Unknown History %) nasal spray cephalexin 500 mg capsule 500 mg PO Q6 #40 CAPSULES 09/14/24 Unknown Rx Allergy/AdvReac Type Severity Reaction Status Date / Time clavulanic acid (From AdvReac Severe Nausea Verified 09/14/24 14:24 Augmentin) Family History Son Asthma Mother Breast cancer Hypertension Grandmother Breast cancer Brother Cancer liver cancer Grandfather Cancer prostate cancer Uncle Cancer prostate cancer Surgical History History of hysterectomy History of colonoscopy History of spinal surgery Social History Smoking Status: Former smoker alcohol intake: never substance use type: does not use ROS ROS ED Constitutional Constitutional ED: Denies chills or fever(s) Eyes Eyes: Denies blurry vision or change in vision ENT ENT ED: Denies rhinorrhea or sore throat Cardiovascular Cardiovascular: Denies chest pain or palpitations Respiratory/Chest Respiratory/Chest: Denies cough or dyspnea Gastrointestinal Gastrointestinal: Denies nausea or vomiting Genitourinary Genitourinary ED: Denies dysuria or hematuria Musculoskeletal Musculoskeletal: Denies back pain or neck pain Integumentary Denies abscess or rash Neurologic Neurologic: Denies headache(s) or weakness Allergic/Immunologic Allergic/Immunologic ED: Denies mouth swelling or urticaria EXAM Physical Exam Const Vital Signs: 09/14/24 14:24 Temperature 98.1 F Temperature Source Oral Pulse Rate 77 Respiratory Rate 19 H Blood Pressure 135/65 H Blood Pressure Mean 88 Pulse Ox 98 Oxygen Delivery Method Room Air Positive well nourished and well developed General Appearance ED: well developed and NAD HEENT Reports moist mucous membranes Neck full ROM and supple Extremity Extremity Narrative: There is a 1.5 cm curvilinear laceration of the dorsal aspect of the left index finger. There is moderate bleeding noted. There is mild gapping of the wound margins. Sensation was intact to light touch in all digits. Capillary refill was less than 2 seconds in all digits. Patient was unable to extend the PIP and DIP joints against resistance. Patient had good flexion of the PIP and DIP joints. Neuro oriented x3, CN's II-XII intact bilaterally, moves all extremities, no focal motor deficits and no sensory deficits noted Sensorium / Orientation: alert Motor Exam: strength 5/5 throughout Psych mental status grossly normal Skin Trauma: laceration linear, actively bleeding, involves subcutaneous tissue, motor nerve function intact and sensation intact MDM MDM MDM Narrative Medical decision making narrative: Differential diagnosis includes skin laceration, tendon laceration, open fracture, and contusion. X-rays of the left index finger will be obtained to assess for fracture and foreign body. Radiography Diagnostic Testing: X-rays of the left finger were obtained. There are 3 views. On my independent interpretation, there is no acute fracture. There is no foreign body noted. Radiologist also interpreted the x-rays and agrees. Treatment and Re-Evaluation Narrative: The wound was cleaned and irrigated with copious amounts of normal saline. The wound was anesthetized with 1% plain lidocaine via digital block. The wound was closed with 3 simple interrupted #4-0 nylon sutures under sterile technique. Patient tolerated the procedure well. Bacitracin dressing was applied. Patient was given a dose of Keflex here. Patient is given a prescription for Keflex. Patient was placed in AlumaFoam splint. Case was discussed with Dr. Ledesma from plastic surgery. He will follow-up with the patient on Monday. Patient understood and was agreeable with the plan. All questions were answered. Discharge Plan Triage Chief Complaint: Laceration ED Provider: Gutierrez Rodriguez Dx/Rx/DC Orders Clinical Impression: Laceration of left index finger w/o foreign body w/o damage to nail, Extensor tendon laceration of finger with open wound Instructions: ED Laceration, Hand: All Closures, ED Tendon Laceration Prescriptions: New cephalexin 500 mg capsule 500 mg PO Q6 Qty: 40 0RF No Action aspirin 81 MG tablet,delayed release (DR/EC) 81 mg PO DAILY Patient Comments: stop 1 week prior to colonoscopy multivitamin 1 EACH tablet 1 ea PO DAILY famotidine 20 MG tablet 20 mg PO DAILY Primary Care Provider: Nando Nettles Referrals: Nando Nettles MD [Primary Care Provider] - Harshil Ledesma MD [Med Staff - Active Staff] - 2 Days Activity Restrictions/Additional Instructions: Dr. Ledesma's office will call you Monday to schedule the appointment Monday Print Language: Faroese Disposition Disposition: Home, Self Care
[2024-09-14] MEDS: Lidocaine 1% (20 ml mdv) 20 ML Vial INFILT (15:01)
--- NOTE | 2024-09-14 15:10 | RAD_ITS ---
PROCEDURE: FINGER(S) MIN 2 VIEWS 09/14/2024 REASON FOR EXAM: INJURY/PAIN TECHNIQUE: 3 view(s) of the left 2nd finger COMPARISON: None. FINDINGS: Bones: No acute osseous fracture. No aggressive osseous lesions. Joints: Normal alignment. Joint spaces preserved. No arthropathic features. Soft tissues: No soft tissue gas. No radiopaque foreign body. RAD/Finger(s) Min 2 Views IMPRESSION: NEGATIVE FINGER SERIES Reading Location: [id number]
--- NOTE | 2024-09-14 15:52 | CM.ED ---
Social Work: rehabilitation worker verified advanced care directives are in patient's electronic medical records. Mallory Childers, [employer]LECT[employer]ICIAN [employer]ENTICE [employer], DESKTOP MANAGER
[2024-09-14] MEDS: Cephalexin 500 MG Capsule PO (16:30)
== END 2024-09-14 16:39 | disposition home or self-care (01) ==
PROVIDERS: Emergency Provider Emergency Medicine; PCP Family Medicine; Visit Provider Emergency Medicine
DX: S66.321A Laceration of extensor muscle, fascia and tendon of left index finger at wrist and hand level, initial encounter (principal); S61.211A Laceration without foreign body of left index finger without damage to nail, initial encounter; W26.0XXA Contact with knife, initial encounter; I10 Essential (primary) hypertension; Z79.82 Long term (current) use of aspirin; Z87.891 Personal history of nicotine dependence
CPT/HCPCS: 12001; 73140; 99284

== ENCOUNTER 2024-09-18 12:19 | Day surgery (SDC) | payer MEDICARE, SELFPAY ==
[2024-09-18] VITALS (7 sets, daily range): BP systolic 137–150; BP diastolic 61–71; PULSE 71–83; RESP 16–20; TEMP 35.7–36.6; O2SAT 97–100; BMI 25.9
--- NOTE | 2024-09-18 10:31 | PCM.HP.STD ---
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 The injury occurred on Monday, 15 September 2024, when she was sharpening a knife and accidentally cut herself. She went to the emergency department where she was washed out and closed and placed on antibiotics. She was referred to our clinic. Patient is not a smoker. No personal or family history of bleeding or clotting problems or problems with anesthesia. Caprini score is 4 Her tetanus is up-to-date from 2022 She has no prior history of hand trauma in this location. Current Encounter (DATE OF SURGERY H&P UPDATE): I saw and examined the patient this morning in pre-operative holding. We discussed risks and benefits of today's surgery and they would like to proceed. NO CHANGE in health history since last seen and evaluated. Ready to proceed with surgery. REPLACED BY [facility] Medical History Wears glasses Wears partial dentures Cancer Restless legs Former smoker GERD (gastroesophageal reflux disease) Breast cyst Arthritis Hypertension Abnormal mammogram of left breast Chronic neck and back pain Shoulder pain Home Medications ?Medication ?Instructions ?Recorded ?Last Taken ?Type famotidine 20 mg tablet 20 mg PO QHS 07/23/20 Unknown History multivitamin 1 ea PO DAILY 07/23/20 Unknown History alprazolam 0.5 mg tablet 0.5 mg PO DAILY PRN 06/15/23 Unknown History ipratropium bromide 42 mcg (0.06 2 spray intranasal BID 06/15/23 Unknown History %) nasal spray cephalexin 500 mg capsule 500 mg PO Q6 #40 CAPSULES 09/14/24 09/18/24 09:00 Rx estradiol 0.5 mg tablet 0.5 mg PO DAILY 09/17/24 Unknown History losartan 50 mg tablet 50 mg PO DAILY 09/17/24 Unknown History doxycycline hyclate 100 mg capsule 100 mg PO BID 7 days #14 caps 09/18/24 Unknown Rx oxycodone 5 mg tablet 5 mg PO Q12H PRN pain 5 days #10 09/18/24 Unknown Rx tabs Allergy/AdvReac Type Severity Reaction Status Date / Time clavulanic acid (From AdvReac Severe Nausea Verified 09/18/24 13:02 Augmentin) Family History Son Asthma Mother Breast cancer Hypertension Grandmother Breast cancer Brother Cancer liver cancer Grandfather Cancer prostate cancer Uncle Cancer prostate cancer Surgical History Status post Mohs surgery History of hysterectomy History of colonoscopy History of spinal surgery Social History Smoking Status: Former smoker how long ago did patient quit smoking: quit 2005 alcohol intake: never substance use type: does not use additional social history: pt denies vaping, denies edibles, denies marijuana use Denies family history of blood clots Physical Exam Narrative Left upper Extremity Inspection: Left index finger with 2.5 cm laceration just proximal to the PIP joint on the dorsum. She has an obvious boutonniere deformity. Palpation: No collateral ligament instability at the PIP joint of the left index finger. She has intact and normal passive range of motion of the index finger PIP joint limited only by pain. Motor: Able to bend and extend all MP, PIP, and DIP joints, except she is unable to extend the PIP joint of the left index finger. She has a positive Alon's test. Sensory: Intact to light touch on the radial and ulnar borders. Sensation to light touch intact distal to the zone of injury. Vascular: Finger tips are warm and well perfused with <2 second capillary refill. Assessment & Plan Assessment/Plan (1) Central slip extensor tendon injury (boutonniere): PLAN: Plan X-ray reviewed no bony abnormality but boutonniere deformity seen on the x-ray. I talked her about the boutonniere deformity and how the central slip was lacerated and the lateral bands are displaced volarly and are hyperextending the DIP joint. I talked to the patient extensively about the risks of surgery, including bleeding, infection, hardware failure, hardware infection, damage to surrounding structures, poor scaring, surgical site dehiscence and wound formation, need for wound care, need for repeat operations, failure to obtain the desired result, and the risks of anesthesia. We talked about stiffness and inability to flex the finger at the PIP joint as well as before. The benefits and alternatives of this surgery were also discussed. All of their questions were answered, and they agreed to proceed with surgery. I talked to her about the problems of the location of the injury. She has a laceration of the extensor tendon as it inserts into the central slip insertion on the middle phalanx. I talked her about my concerns for primary repair, mainly being that there will be minimal distal stump for repair (need approximately 1 cm for strong repair). Therefore I talked to her about the potential for primary repair with a suture anchor in the middle phalanx (hardware, implantable and permanent). This would be an option if there is a sharp transection of the tendon without any fraying and no gap. I talked to her about the problem of there being a potential gap with contracted/diminutive tendon endings. If there is a gap, then she would require acute reconstruction with the use of either an EDC local flap reconstruction (Snow technique) or with use of the lateral bands (Matev technique). Both of these techniques also would include the use of a suture anchor, and we talked about the risk of suture anchor failure or suture failure and repair failure. She would like to proceed with surgery. Patient placed back in a splint and told to finish her antibiotics. Follow-up later this week for central slip repair. CPT codes for insurance prior authorization are as follows: [id number] INTERVAL H&P PLAN, DATE OF SURGERY: We will proceed with surgery today. I marked the left index finger
--- NOTE | 2024-09-18 10:33 | OP.PCM_ITS ---
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 [employer] Executive: Jeanne Angel Tasks completed by pharmacy assistant: Retracting Type of Anesthesia: MAC/Supplemental (10 cc of 50/50 mixture of 1% lidocaine and 0.25% Marcaine ) RN Documented Start/Stop Times: Operation Date: 09/18/24 14:10 Case Time Into Pre-Op 09/18/24 12:49 Out of Pre-Op 09/18/24 14:16 Anesthesia Start 09/18/24 14:21 Into Room 09/18/24 14:21 Procedure Start 09/18/24 14:47 Procedure End 09/18/24 15:35 Anesthesia End 09/18/24 15:41 Out of Room 09/18/24 15:41 Into Recovery 09/18/24 15:43 Out of Recovery 09/18/24 15:57 Into Phase II Recovery 09/18/24 15:58 Procedure Start Time: 14:47 Procedure Stop Time: 15:35 Select all DRAINS/GRAFTS/IMPLANTS that apply: Implanted device (Suture anchor) Implanted device details: Noelle corkscrew Arthrex 1.7 mm x 1.5 mm Estimated Blood Loss: minimal Specimen collected: No Description of surgery: Indications: Audra Mcconnell is a delightful 69-year-old female who sustained a laceration to her left index finger dorsum lacerating her EDC tendon at/just proximal to the central slip insertion. She subsequently developed an acute boutonniere deformity. She presents today for repair. I discussed with her the risks, benefits, and alternatives to repair, and she elected to proceed. Procedure details: Patient was quickly identified in preoperative holding and taken back to the operative room where she was administered sedation and a local block. He was given time to take effect and she was prepped and draped in sterile fashion. A timeout was performed. Sutures were removed. Tourniquet on the arm was inflated to 250 mmHg after exsanguination. The horizontal laceration was extended into a proximal ulnar incision and a distal radial incision to make a Z-type incision for exposure of the underlying injury. The wound was irrigated with copious amounts of normal saline and Irrisept. The central slip was noted to be lacerated with minimal residual distal tendon stump (could not be repaired without a suture anchor or bone tunnel). Decision was therefore made to use a suture anchor with 3-0 FiberWire. Using the C arm as guidance, a suture anchor was drilled into the dorsal base of the middle phalanx with care taken to be outside the joint and within the footprint of the central slip. The suture tails were then used to suture the EDC central slip back into position over the houlton footprint using a cruciate repair and a tie. 2 [id number] 3-0 FiberWire sutures were then placed on the sides of the repair to further reinforce the repair. Patient had excellent cascade with passive tenodesis normal appearing resting index finger (improvement as she was resting in a boutonniere deformity before the repair). The tourniquet was let down and hemostasis was obtained with bipolar electrocaut petra. The wounds were closed with interrupted horizontal mattress 4-0 nylon suture. A 0.035 K wire was used to stabilize the left index finger PIP joint in extension. Xeroform, Webril and a plaster splint were applied. Patient was awakened and taken the PACU in stable condition. She tolerated the procedure well. Postoperative plan: Follow-up in 1 week for wound check and splint change. Plan to pull K wire and begin hand therapy in 2 weeks. Surgical Findings: Lacerated central slip insertion with no distal central slip stump for repair over the footprint thus indicating use of a suture anchor. Complications Complications: No Admit VTE Documentation VTE Mechan Device Prophylaxis: SCD's
--- NOTE | 2024-09-18 12:39 | PCM.PRE.AN2 ---
ASA Classification* ASA Classification ASA Classification: 2 Assessment & Plan Anesthesia* Anesthesia Assessment Anesthesia Assessment: Discussed sedation and/or anesthesia options, risks, benefits, and alternatives with patient/parents/legal guardian/POA. Questions invited. The patient/parents/legal guardian/POA seems to understand and agrees to proceed with anesthesia plan. Reviewed the physical assessment, medical history, allergy history and patient home medications list prior to surgery/procedure/anesthetic and documented any changes. Performed airway and anesthesia risk assessments. Anesthesia Type Anesthesia Type: MAC Anesthesia Focused Assessment* Airway Assessment Mouth opens: >3 cm Mallampati Score: II Focused Labs Anesthesia Preop lab: CBC WBC 9.1 K/mm3 (4.4-11.0) 02/19/24 15:54 02/19/24 RBC 4.03 M/mm3 (4.2-5.4) L 02/19/24 15:54 02/19/24 Hgb 12.0 g/dL (12.0-15.0) 02/19/24 15:54 02/19/24 Hct 36.4 % (37-47) L 02/19/24 15:54 02/19/24 Plt Count 424 K/mm3 (150-450) 02/19/24 15:54 02/19/24 CHEMISTRY Potassium 3.6 mmol/L (3.5-5.1) 02/19/24 15:54 02/19/24 Sodium 138 mmol/L (136-145) 02/19/24 15:54 02/19/24 Magnesium 1.6 mg/dL (1.6-2.6) 02/19/24 15:54 02/19/24 BUN 17 mg/dL (7-18) 02/19/24 15:54 02/19/24 Creatinine 0.59 mg/dL (0.55-1.02) 02/19/24 15:54 02/19/24 Glucose 119 mg/dL (74-106) H 02/19/24 15:54 02/19/24 TSH 3.020 uIU/mL (0.358-3.740) 02/19/24 15:54 02/19/24 COAG Pre-Assessment Diagnosis/Proposed Procedure Planned Operative Procedure(s): CENTRAL SLIP LACERATION, LEFT INDEX FINGER BOUTONNIERE DEFORMITY Anesthesia History 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 When Was Last Pacemaker Check QUESTION #4 FULL TEXT: You/Your Family Experience fever (hyperthermia) with Anesthesia Last Oral Intake Last Oral intake: Last Oral Intake NPO since Meds taken in AM with sips of water? Meds patient instructed to take am of surgery PONV PONV - sap treasury consultant: PONV - sap treasury consultant Female Yes 09/17/24 13:08 HX of Motion Sickness No 09/17/24 13:08 HX of N/V After Surgery No 09/17/24 13:08 Non-Smoker Yes 09/17/24 13:08 Duration of Surgery greater Yes 09/17/24 13:08 than 60 minutes Number of Risk Factors 3 09/17/24 13:08 PONV Score Moderate Risk 09/17/24 13:08 Height & Weight Height & Weight: Anesthesia: Height & Weight Height 5 ft 5 in 09/16/24 16:32 Respiratory Assessment Respiratory Assessment - sap treasury consultant: Respiratory Tract Infection Hx - sap treasury consultant Hx Respiratory Tract Infection No 09/17/24 13:08 STOP Sleep Apnea STOP Sleep Apnea - sap treasury consultant: STOP Sleep Apnea - sap treasury consultant Hx Hypertension Yes: CONTROLLED WITH MED 09/17/24 13:08 Hx Sleep Apnea No 09/17/24 13:08 CPAP BIPAP Do you snore loudly (louder No 09/17/24 13:08 than talking or can be heard Do you often feel tired/ No 09/17/24 13:08 fatigued/ sleepy during daytime? Has anyone observed you stop No 09/17/24 13:08 breathing during sleep? STOP Results Negative 09/17/24 13:08 QUESTION #5 FULL TEXT : Do you snore loudly (louder than talking or can be heard through closed doors)? 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 Specify any problems Hx of Preganancy in last 3 N/A 09/17/24 13:08 Months Nurse Filling Out Transfusion NBUCHER 09/17/24 13:08 & Questions: Date: 09/17/24 09/17/24 13:08 Time: 13:10 09/17/24 13:08 Patient unable to answer at this time (ie. confused, unrespo /Reproduction History /Reproductive History - sap treasury consultant: /Reproductive Hx- sap treasury consultant Hx Now No 09/17/24 13:08 Gestational Age (in weeks): EDC: Hx Hx Para Hx Section SAB No 09/17/24 13:08 [facility] Medical History Wears glasses Wears partial dentures Cancer Restless legs Former smoker GERD (gastroesophageal reflux disease) Breast cyst Arthritis Hypertension Abnormal mammogram of left breast Chronic neck and back pain Shoulder pain Home Medications ?Medication ?Instructions ?Recorded ?Last Taken ?Type famotidine 20 mg tablet 20 mg PO QHS 07/23/20 Unknown History multivitamin 1 ea PO DAILY 07/23/20 Unknown History alprazolam 0.5 mg tablet 0.5 mg PO DAILY PRN 06/15/23 Unknown History ipratropium bromide 42 mcg (0.06 2 spray intranasal BID 06/15/23 Unknown History %) nasal spray cephalexin 500 mg capsule 500 mg PO Q6 #40 CAPSULES 09/14/24 Unknown Rx estradiol 0.5 mg tablet 0.5 mg PO DAILY 09/17/24 Unknown History losartan 50 mg tablet 50 mg PO DAILY 09/17/24 Unknown History doxycycline hyclate 100 mg capsule 100 mg PO BID 7 days #14 caps 09/18/24 Unknown Rx oxycodone 5 mg tablet 5 mg PO Q12H PRN pain 5 days #10 09/18/24 Unknown Rx tabs Allergy/AdvReac Type Severity Reaction Status Date / Time clavulanic acid (From AdvReac Severe Nausea Verified 09/17/24 13:06 Augmentin) Family History Son Asthma Mother Breast cancer Hypertension Grandmother Breast cancer Brother Cancer liver cancer Grandfather Cancer prostate cancer Uncle Cancer prostate cancer Surgical History Status post Mohs surgery History of hysterectomy History of colonoscopy History of spinal surgery Social History Smoking Status: Former smoker how long ago did patient quit smoking: quit 2005 alcohol intake: never substance use type: does not use additional social history: pt denies vaping, denies edibles, denies marijuana use Denies family history of blood clots Review of Systems (Anesthesia) ROS Narrative System reviewed and no additional complaints, except as documented.
--- NOTE | 2024-09-18 13:10 | RAD_ITS ---
PROCEDURE: FINGER(S) MIN 2 VIEWS 09/18/2024 REASON FOR EXAM: CENTRAL SLIP LACERATION, LEFT INDEX FINGER BOUTONNIERE DEFORMITY TECHNIQUE: 6 fluoroscopic images were submitted. Fluoroscopy time was 35 seconds. Peak skin radiation dose was 0.19 mGy. COMPARISON: 09/14/2024 FINDINGS: See impression RAD/Finger(s) Min 2 Views IMPRESSION: Fixation screw placed along the dorsal base of the 2nd middle phalanx. See operative report for further details. Reading Location: [facility]
[2024-09-18] MEDS: Lactated Ringers 1,000 ML 15 ML IV (13:13)
[2024-09-18] MEDS: Cefazolin 2 GM in Syringe IV (14:26)
[2024-09-18] MEDS: Bupivacaine 0.25% 30 ML Vial (14:44)
[2024-09-18] MEDS: Lidocaine 1% (20 ml mdv) 20 ML Vial (14:44)
[2024-09-18] MEDS: Bupiv/Epi 0.25% 30 ML Vial (15:16)
--- NOTE | 2024-09-18 15:46 | PCM.POST.ANE ---
Anesthesia: Postop Eval I Current Vital Signs Temperature: 97.4 F Pulse Rate: 83 Blood Pressure: 150/71 Respiratory Rate: 20 Pulse Ox: 99 Oxygen Delivery Method: Room Air Assessment Airway patent: Yes Spontaneous unlabored respirations: Yes Mental status: Awake and Calm nausea: No Vomiting: No Anesthesia Complication: No Fluid Hydration Crystalloid volume administer (ml): 700 Total IV fluid infused: 700 Progress Note Anesthesia document: Postop Eval 1 completed: Yes
--- NOTE | 2024-09-18 16:07 | POSTOPAN2_ITS ---
Anesthesia Postop Eval I Sum Postop Eval Completion status Anesthesia document: Postop Eval 1 completed: Yes Anesthesia Postop Eval I Summary Anesthesia Postop Eval I Summary: Anesthesia Postop Eval I: Assessment Summary Airway patent Yes 09/18/24 15:47 MACHINE CAGE [email or web address] Spontaneous unlabored Yes 09/18/24 15:47 MACHINE CAGE [email or web address] respirations Mental status Awake,Calm 09/18/24 15:47 MACHINE CAGE [email or web address] nausea No 09/18/24 15:47 MACHINE CAGE [email or web address] Vomiting No 09/18/24 15:47 MACHINE [email or web address] [email or web address] Anesthesia Postop Eval I: Fluid Summary Crystalloid volume administer 700 09/18/24 15:47 MACHINE [email or web address] [email or web address] (ml) Colloids volume administered ( ml) Blood Product volume administered (ml) Total IV fluid infused 700 09/18/24 15:47 MACHINE [email or web address] [email or web address] Anesthesia Postop Eval I: Summary Notes Anesthesia Complication No 09/18/24 15:47 MACHINE [email or web address] [email or web address] Anesthesia Complication Comment: Post-operative progress note Anesthesia: Postop Eval II Evaluation Mental status: Awake Pain Level: 0 nausea: No Vomiting: No
--- NOTE | 2024-09-18 16:07 | PCM.POSTANE2 ---
Anesthesia Postop Eval I Sum Postop Eval Completion status Anesthesia document: Postop Eval 1 completed: Yes Anesthesia Postop Eval I Summary Anesthesia Postop Eval I Summary: Anesthesia Postop Eval I: Assessment Summary Airway patent Yes 09/18/24 15:47 CORE SHAPER [email or web address] Spontaneous unlabored Yes 09/18/24 15:47 CORE SHAPER [email or web address] respirations Mental status Awake,Calm 09/18/24 15:47 CORE SHAPER [email or web address] nausea No 09/18/24 15:47 CORE SHAPER [email or web address] Vomiting No 09/18/24 15:47 CORE SHAPER [email or web address] Anesthesia Postop Eval I: Fluid Summary Crystalloid volume administer 700 09/18/24 15:47 CORE SHAPER [email or web address] (ml) Colloids volume administered ( ml) Blood Product volume administered (ml) Total IV fluid infused 700 09/18/24 15:47 CORE SHAPER [email or web address] Anesthesia Postop Eval I: Summary Notes Anesthesia Complication No 09/18/24 15:47 CORE SHAPER [email or web address] Anesthesia Complication Comment: Post-operative progress note Anesthesia: Postop Eval II Evaluation Mental status: Awake Pain Level: 0 nausea: No Vomiting: No
== END 2024-09-18 16:55 | disposition home or self-care (01) ==
LOC: SDC 12:19 → AC 12:36
PROVIDERS: PCP Family Medicine; Referring Provider Surgery Plastic and Reconstructive Surgery; Visit Provider Surgery Plastic and Reconstructive Surgery
PROC: (CPT 26426; principal; 2024-09-18 13:55)
DX: S66.321A Laceration of extensor muscle, fascia and tendon of left index finger at wrist and hand level, initial encounter (principal); M20.022 Boutonniere deformity of left finger(s); W26.0XXA Contact with knife, initial encounter; I10 Essential (primary) hypertension; K21.9 Gastro-esophageal reflux disease without esophagitis; Z79.899 Other long term (current) drug therapy; Z87.891 Personal history of nicotine dependence
CPT/HCPCS: 26426; 01810; 73140; 76000; C1713

== ENCOUNTER → 2024-10-17 | Outpatient (CLI) | payer MEDICARE, SELFPAY ==
[2024-10-17 16:40] LABS: Cholesterol 237 mg/dL (<=200); High Density Lipoprotein 79 mg/dL; Low Density Lipoprotein Calc. 136 mg/dL; Triglycerides 111 mg/dL; Very Low Density Lipoprotein 22 mg/dL (5-40); cholesterol:hdl ratio screen 2.99
== END | disposition home or self-care (01) ==
LOC: MFPLAB 10:45
PROVIDERS: PCP Family Medicine
DX: Z13.220 Encounter for screening for lipoid disorders (principal)
CPT/HCPCS: 36415; 80061

== ENCOUNTER → 2024-10-17 | Outpatient (CLI) | payer MEDICARE, SELFPAY ==
--- NOTE | 2024-10-17 13:33 | BD_ITS ---
PROCEDURE: DEXA BONE DENSITY STUDY 10/17/2024 REASON FOR EXAM: F, age 69 y/o . Postmenopausal. TECHNIQUE: DXA scan of sites with data reported below. REFERENCE LINKS: [facility] Adult Positions COMPARISON: Prior study dated October 13, 2022 FINDINGS: BMD and T-SCORES Lumbar spine: 1.468 g/cm2, T-score 3.9 Levels: L1 through L4 Change from prior: Loss of 1.7%. Left femoral neck: 0.932 g/cm2, T-score 0.7 Femoral neck comparison data not recommended for monitoring change. Left total hip: 1.015 g/cm2, T-score 0.6 Change from prior: Loss of 2.2%. Right femoral neck: 0.864 g/cm2, T-score 0.1 Femoral neck comparison data not recommended for monitoring change. Right total hip: 0.910 g/cm2, T-score -0.3 Change from prior: Improvement of 1.6%. The World Health Organization has defined the following categories based on bone density: Normal bone density: T-score equal to or greater than -1.0 Osteopenia: T-score between -1.0 and -2.5 Osteoporosis: T-score equal to or less than -2.5 The patient does meet the pharmacological treatment recommendations for prevention of osteoporosis. BD/Dexa Bone Density Study IMPRESSION: NORMAL T-SCORES. Recommend follow-up as clinically warranted. Reading Location: [place] [id number]
== END | disposition home or self-care (01) ==
LOC: OPBD 13:29
PROVIDERS: PCP Family Medicine
DX: Z13.820 Encounter for screening for osteoporosis (principal); Z78.0 Asymptomatic menopausal state
CPT/HCPCS: 77080

== ENCOUNTER 2024-12-23 09:00 | Outpatient (RCR) | payer MEDICARE, SELFPAY ==
--- NOTE | 2024-10-03 07:46 | HP.OTEVAL ---
Patient's Visit Information Visit Information Visit Information: GABO LINDSEY is a 69 year old F, referred to Occupational Therapy by Dr. Harshil Ledesma MD, with a diagnosis of left IF extensor tendon laceration. Date of Evaluation: Occupational Therapist: Alba Goldman, OTR/L, CHT Subjective Subjective: This 69-year-old female was seen for OT eval with dx of extensor tendon laceration of left IF. Pt states on September 14, 2024, she was sharpening a knife and cut her finger. pt underwent sx repair of central slip on September [id number]. pt had pin removed yesterday and arrives today for initiate of therapy services and custom orthosis. 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 custom exercise orthosis to 30* of PIP flexion and full ext. No other measurements taken at this time - will cont to measure PIP flexion/ext and watch for signs of complications pt demo full flexion of right IF Strength Strength Comments: will test later date Sensation Sensation Comments: denies Quick DASH-Disab of Arm,Shoulder& Hand Quick DASH Score: 71.4275 Goals Goal:100% adherence to protocol: Yes Comment: following central slip repair guidelines Goal:Daily scar massage when approriate: Yes Goal:ROM equal to unaffected hand: Yes Goal:Office Copy Selector/Pinch strength at least 75% of unaffected hand: Yes Comment: will not initiate until week 6 Goal:No pain with affected hand use: Yes Goal:Full use of affected hand in daily activities including work: Yes Goal:Improvement in sensation documented by [place] monofiliaments: Yes Rehabilitation General Assessment: pt arrives 2 weeks following a central slop extensor tendon repair with use of suture anchor pin removed yesterday. pt demo with newly healing structures and has limited use of left UE for ADLs and IADLs. pt demo need for skilled OT services 1-2x week for 8 weeks to assist pt in return to her PLOF. Today therapist chapo. custom orthosis placing left IF MP in 30* with PIP and DIP in full extension. Therapist ed, pt she needs to wear at all times unless performing her scar mtg. Pt demo understanding. Therapist chapo. exercise splint keeping PIP 0* allowing DIP flexion, therapist advised to perform every 2 hours. pt demo understanding. therapist chapo. another exercise splint for her PIP that will allow PIP flexion only to 30* and full extension. Pt demo understanding of her ex. and will return this week. Pts incision looks great, dorsal stitches intact and will remove in a few days or week depending on how healing looks. Pt demo understanding and agree to POC. Rehabilitation Potential: Good Anticipated Interventions Anticipated Interventions: Early Active Motion, A/AAROM/PROM, Strengthening, Edema Control, Scar Care, Triggerpoint Release, Sensory Retraining, Modalities, Orthoses, Joint Protection/Energy Conservation, Ergonomic Education, Fine Motor Coord/Thierry, Education re assistive Equipment, Education re Diagnosis and Home Program Visit Plan Frequency: 1-2x /Week Duration: 2 Months General Plan: Day 3 to week 4 Orthotics: Hand based with MCP in 30° flexion volar with PIP & DIP 0° 100% except for exercise. For CS repair: Exercise orthosis 1: PIP flexed 30°DIP free. Exercise orthosis 2: PIP in 0* and DIP free Therapeutic exercise day 3-week 4 Repaired CS: Place MCP in slight flexion. • Active PIP & DIP flexion within confines of orthosis 1, then active extension to 0º. • Active DIP flexion within confines of orthosis 2, then active extension to 0º. Week 3: if no lag, adjust orthosis 1 PIP to 40°flexion. Week 4: by end of week 4, if no lag, continue to progress flexion of PIP joint adjusting orthosis 1 by 10°& up to 60°-70°. Phase II protection phase: 4-6 weeks Discharge hand-based orthosis. Replace with finger based volar with PIP in 0°for CS or PIP & DIP in 0°for CS & LB repair. Week 4: wear finger-based extension orthosis when not exercising. Week 5: gradually wean from orthosis during day for light functional typing, writing, dressing and eating. If PIP lag, add reverse blocking with active PIP extension. If lag, wear PIP and DIP in 0°orthosis during sleep. Phase III intermediate phase: 6-8 weeks Discharge all 3 orthotics Initiate progressive resistive exercises (PREs), and PRO TEXT: Thank you for the opportunity to evaluate your patient. For Medicare and Medicare HMO plans, please review the plan of care and approve it. It will need to be FAXED BACK to us at [phone] for Medicare purposes. Please let me know if there are questions or concerns regarding this plan of care. Physician Signature: Date:
--- NOTE | 2025-02-18 12:00 | HP.OT.NRP ---
Patient Information Patient Information: GABO LINDSEY was seen in my office for initial evaluation on 10/03/24. The following Plan of Care was established for this patient: POC Established Initial Frequency: 1-2x /Week Initial Duration: 2 Months Plan: cont to improve functional DIP and PIP composite flexion Anticipated Interventions Anticipated Interventions: Early Active Motion, A/AAROM/PROM, Strengthening, Edema Control, Scar Care, Triggerpoint Release, Sensory Retraining, Modalities, Orthoses, Joint Protection/Energy Conservation, Ergonomic Education, Fine Motor Coord/Thierry, Education re assistive Equipment, Education re Diagnosis and Home Program Last Seen Last Seen: This patient was last seen in our office 12/23/24. Pertinent comments regarding their Occupational therapy will appear below: no further apts have been scheduled and due to time lapse in services pt is d/c at this time. At this point I will be discontinuing this patient from occupational therapy. I would be happy to see this patient again in the future if found appropriate by the physician. Thank you! Alba Goldman, OTR/L, CHT
== END 2024-12-23 19:00 | disposition home or self-care (01) ==
LOC: OT 09:00
PROVIDERS: PCP Family Medicine; Referring Provider Surgery Plastic and Reconstructive Surgery; Visit Provider Surgery Plastic and Reconstructive Surgery
DX: M20.029 Boutonniere deformity of unspecified finger(s) (principal)
CPT/HCPCS: 97110; 97140; 97166; 97530

== ENCOUNTER → 2025-05-28 | Outpatient (CLI) | payer MEDICARE, SELFPAY ==
--- NOTE | 2025-05-28 16:15 | BI_ITS ---
EXAM: SCRN MAMM (CAD)W/MARY ANN BILAT DATE: 05/28/2025 CLINICAL HISTORY: F, Age 69 y/o , ROUTINE Routine screening TECHNIQUE: Procedure Code: [id number] Modality: MG Procedure: SCRN MAMM (CAD)W/MARY ANN BILAT COMPARISON: Prior exam(s) dated 05/27/2024. FINDINGS: TISSUE DENSITY: The breasts are heterogeneously dense, which may obscure small masses. Bilateral Breast Mammographic Findings: No significant masses, calcifications or other abnormalities are identified. Stable scattered punctate and lucent centered calcifications BI/SCRN MAMM (CAD)W/MARY ANN BILAT IMPRESSION: Stable screening mammogram, no suspicious findings, no interval change OVERALL FINAL ASSESSMENT BI-RADS 2: BENIGN RECOMMENDATION: Routine annual follow-up in 1 Year Additional Recommendation none A letter with findings and recommendations will be mailed to the patient. Reading Location: [id number]
--- OUTSIDE RECORDS SUMMARY | 2025-05-28 16:15 | XMS RPT_ITS | CCD ---
Author Organization [facility] Care Team Providers Care Advisory Application Developer Name Role Phone Dr. Jose Carlos Nettles Primary Care Provider Dr. Gutierrez Emerson Attending Provider Red Valdez MD Unavailable Vinay Nettles Primary Care Provider [phone] Lory [employer] - CRACKER OFFDenise Unavailable VINAY NETTLES Primary Care Unavailable RED VALDEZ Attending Unavailable VINAY NETTLES Referring Unavailable VINAY NETTLES Primary Care Unavailable DENISE HENLEY Attending Unavailable VINAY NETTLES Primary Care Unavailable RED VALDEZ Admitting Unavailable RED VALDEZ Attending Unavailable VINAY NETTLES Primary Care Unavailable Dr. Vinay Nettles MD Primary Care Provider Dr. Vinay Nettles MD Attending Provider Dr. Vinay Nettles MD Referring Provider Dr. Gutierrez Rodriguez DO Emergency Provider Dr. Vinay Nettles MD Primary Care Provider Dr. Gutierrez Rodriguez DO Attending Provider Dr. Harshil Ledesma MD Attending Provider Dr. Gutierrez Rodriguez DO Referring Provider Dr. Harshil Ledesma MD Referring Provider Dr. Harshil Ledesma MD Other Provider Dr. Vinay Nettles MD Referring Provider [facility] PIPE LAYER-C, Bertin Attending Provider Budorrow WATER MAIN PIPE LAYER-C, Bertin Referring Provider Yoon GAGNON, Lindsay Primary Care Physicia n Yoon GAGNON, Dr. Collier Referring Provider Callie GAGNON, Dr. Chua Attending Physician [phone] Callie GAGNON, Dr. Chua Referring Provider [phone] Yoon, Vinay Referring Unavailable Siska, Harshil Attending [facility]available [facility] Unavailable Siska, Harshil Consulting Unavailable Siska, Harshil Referring Unavailable Siska, Harshil Attending Unavailable [facility] Unavailable Ranney, Christopher Referring Unavailable Siska, Harshil Attending Unavailable Ranney, Christopher Primary Care Unavailable Ranney, Christopher Referring Unavailable Siska, Harshil Attending Unavailable Ranney, Christopher Primary Care Unavailable Siska, Harshil Referring Unavailable Siska, Harshil Attending Unavailable Ranney, Christopher Primary Care Unavailable Ranney, Christopher Primary Care Unavailable Schwiger, Gutierrez Attending Unavailable Ranney, Christopher Primary Care Unavailable McMorrow WATER MAIN PIPE LAYER, Bertin Attending Unavailable Ranney, Christopher Primary Care Unavailable McMorrow WATER MAIN PIPE LAYER, Bertin Referring Unavailable McMorrow WATER MAIN PIPE LAYER, Bertin Attending Unavailable Siska, Harshil Attending Unavailable Siska, Harshil Referring Unavailable Ranney, Christopher Primary Care Unavailable Ranney, Christopher Attending Unavailable Ranney, Christopher Primary Care Unavailable Ranney, Christopher Referring Unavailable Ranney, Christopher Referring Unavailable Siska, Harshil Attending Unavailable Ranney, Christopher Primary Care Unavailable Siska, Harshil Attending Unavailable Ranney, Christopher Primary Care Unavailable Ranney, Christopher Referring Unavailable Siska, Harshil Attending Unavailable Ranney, Christopher Primary Care Unavailable Schwiger, Gutierrez Referring Unavailable Siska, Harshil Attending Unavailable Ranney, Christopher Referring Unavailable Ranney, Christopher Primary Care Unavailable Ranney, Christopher Referring Unavailable Siska, Harshil Attending Unavailable Ranney, Christopher Primary Care Unavailable Allergies Allergy Classification Reported Allergen(s) Allergy Type Date of Onset Reaction(s) Facility (9 sources) Amoxicillin Drug Allergy 1 Unknown [facility] (16 sources) Clavulanate Drug Allergy 1 Unknown, Nausea [facility] Comment on above: vomiting (10 sources) Amoxicillin-Pot Clavulanate Propensity to adverse reactions [facility] (1 source) Clavulanate Drug Allergy 5 [facility] Repository Medications Current Medications Medication Drug Class(es) Dates Sig (Normalized) Sig (Original) acetaminophen 500 mg oral tablet (6 sources) Start: 07-11-2023 End: 07-21-2023 take 1 tablet by mouth every six hours as needed for pain acetaminophen (Tylenol Extra Strength) 500 MG tablet Take 1 tablet (500 mg) by mouth every 6 hours as needed for mild pain (1-3) for up to 10 days. 30 tablet 0 07/11/2023 07/21/2023 Active Start: 07-11-2023 End: 07-11-2023 acetaminophen (Tylenol) tabl et 1,000 mg ALPRAZolam 0.5 mg oral tablet (7 sources) Benzodiazepine Start: 06-15-2023 take 1 tablet by mouth once daily as needed docusate sodium 100 mg oral capsule (4 sources) Start: 07-11-2023 End: 07-21-2023 take 1 capsule by mouth twice daily docusate sodium (Colace) 100 MG capsule Take 1 capsule (100 mg) by mouth 2 times daily for 10 days. 20 capsule 0 07/11/2023 07/21/2023 Active estradiol 0.5 mg oral tablet (20 sources) Estrogen Start: 09-17-2024 take 1 tablet by mouth once daily Start: 05-20-2019 End: 06-15-2023 take 1 tablet by mouth once daily Estradiol 1 MG tablet Discontinued 1 mg PO DAILY May 20, 2019 1:00am June 15, 2023 10:11am famotidine 20 mg oral tablet (20 sources) Histamine-2 Receptor Antagonist Start: 07-23-2020 take 1 tablet by mouth at bedtime ibuprofen 600 mg oral tablet (4 sources) Nonsteroidal Anti-inflammatory Drug Start: 07-11-2023 End: 07-21-2023 take 1 tablet by mouth every six hours as needed for pain ibuprofen 600 MG tablet Take 1 tablet (600 mg) by mouth every 6 hours as needed for mild pain (1-3) for up to 10 days. 30 tablet 0 07/11/2023 07/21/2023 Active ipratropium bromide 0.042 mg/actuat metered dose nasal spray (12 sources) Anticholinergic Start: 06-15-2023 take 2 spray(s) nasal route once daily ipratropium (Atrovent) 0.06 % nasal spray Administer 2 sprays into each nostril daily. 0 Active losartan potassium 50 mg oral tablet (6 sources) Angiotensin 2 Receptor Ysabel Start: 09-17-2024 take 1 tablet by mouth once daily Multiple Vitamin (multivitamin) tablet (10 sources) take 1 tablet by mouth once daily Multiple Vitamin (multivitamin) tablet Take 1 tablet by mouth daily. 0 Active Multivitamin 1 EACH tablet (7 sources) Start: 07-23-2020 Start: 07-23-2020 Multivitamin 1 EACH tablet Active 1 NMA PO DAILY July 23, 2020 1:00am Multivitamin preparation (9 sources) Start: 07-23-2020 Multivitamin A ctive 1 EACH PO DAILY July 23, 2020 12:00am Start: 07-23-2020 Multivitamin A ctive 1 EACH PO DAILY July 23, 2020 1:00am Completed/Discontinued Medications Medication Drug Class(es) Dates Sig (Normalized) Sig (Original) aspirin 81 mg delayed release oral tablet (16 sources) Platelet Aggregation Inhibitor, Nonsteroidal Anti-inflammatory Drug Start: 05-20-2019 End: 09-17-2024 take 1 tablet by mouth once daily Aspirin 81 MG tablet,delayed release (DR/EC) Discontinued 81 mg PO DAILY May 20, 2019 1:00am September 17, 2024 1:06pm azithromycin 250 mg oral tablet (16 sources) Macrolide Antimicrobial Start: 07-23-2020 End: 06-15-2023 take 1 tablet by mouth once daily Azithromycin 250 MG tablet Discontinued 250 mg PO DAILY 4 0 July 23, 2020 1:00am June 15, 2023 10:11am calcium chloride 0.0014 meq/ml / potassium chloride 0.004 meq/ml / sodium chloride 0.103 meq/ml / sodium lactate 0.028 meq/ml injectable solution (4 sources) Start: 07-11-2023 End: 07-11-2023 lactated ringers infusion cephalexin 500 mg oral capsule (7 sources) Cephalosporin Antibacterial Start: 09-14-2024 End: 11-11-2024 take 1 capsule by mouth every six hours Cephalexin 500 mg capsule Discontinued 500 mg PO EVERY 6 HOURS 40 0 September 14, 2024 12:00am November 11, 2024 3:38pm 1 ml diphenhydrAMINE hydrochloride 50 mg/ml cartridge (2 sources) Histamine-1 Receptor Antagonist Start: 07-11-2023 End: 07-11-2023 diphenhydrAMINE (BENADryl) injection 12.5 mg doxycycline hyclate 100 mg oral capsule (6 sources) Tetracycline-class Drug Start: 09-18-2024 End: 12-20-2024 take 1 capsule by mouth twice daily Doxycycline Hyclate 100 mg capsule Discontinued 100 mg PO TWICE A DAY 14 7 0 September 18, 2024 12:00am December 20, 2024 1:58pm 2 ml fentaNYL 0.05 mg/ml injection (4 sources) Opioid Agonist Start: 07-11-2023 End: 07-11-2023 fentaNYL (Sublimaze) injection 50 mcg Start: 07-11-2023 End: 07-11-2023 fentaNYL (Sublimaze) injecti on 25 mcg gabapentin 100 mg oral capsule (2 sources) Anti-epileptic Agent Start: 07-11-2023 End: 07-11-2023 gabapentin (Neurontin) capsule 100 mg labetalol (Normodyne,Trandate ) injection 5 mg (2 sources) Start: 07-11-2023 End: 07-11-2023 labetalol (Normodyne,Trandat e) injection 5 mg 1 ml meperidine hydrochloride 25 mg/ml cartridge (2 sources) Opioid Agonist Start: 07-11-2023 End: 07-11-2023 meperidine (Demerol) injection 12.5 mg 2 ml ondansetron 2 mg/ml injection (2 sources) Serotonin-3 Receptor Antagonist Start: 07-11-2023 End: 07-11-2023 ondansetron (Zofran) injection 4 mg oxyCODONE hydrochloride 5 mg oral tablet (12 sources) Opioid Agonist Start: 09-18-2024 End: 11-11-2024 take 1 tablet by mouth every twelve hours as needed for pain Oxycodone 5 mg tablet Discontinued 5 mg PO Q12H as needed for pain 10 5 0 September 18, 2024 November 11, 2024 3:38pm 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 15 tablet 0 07/11/2023 07/16/2023 Active Start: 07-11-2023 End: 07-11-2023 oxyCODONE (Roxicodone) immed iate release tablet 5 mg pregabalin 100 mg oral capsule (1 source) End: 06-19-2023 take 1 capsule by mouth twice daily pregabalin (Lyrica) 100 MG capsule Take 100 mg by mouth 2 times daily. 0 06/19/2023 Discontinued (Therapy completed) 50 ml sodium chloride 9 mg/ml injection (20 sources) Start: 07-11-2023 End: 07-11-2023 sodium chloride 0.9 % bolus 500 mL Start: 07-11-2023 End: 07-11-2023 sodium chloride 0.9 % infusi on Start: 07-11-2023 End: 07-11-2023 take 5-40 mL intravenously every twelve hours sodium chloride 0.9% (NS) flush 5-40 mL Problems Active Problems Problem Classification Problem Date Documented Da te Episodic/Chronic Menopausal disorders (5 sources) Postmenopausal bleeding; Translations: [Postmenopausal bleeding] Onset: 06-19-2023 06-16-2023 Chronic Open wounds of extremities (14 sources) Laceration of left index finger; Translations: [Laceration without foreign body of left index finger without damage to nail, initial encounter] 09-14-2024 Episodic Other acquired deformities (20 sources) Boutonniere deformity; 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)] 09-17-2024 Episodic Comment on above: Left index finger Other acquired deformities (1 source) Boutonniere deformity Episodic Other aftercare (1 source) Postoperative visit; Translations: [Encounter for other specified surgical aftercare] 07-31-2023 Episodic Other connective tissue disease (7 sources) Pain in left lower limb; Translations: [Pain in left leg] 06-15-2023 Episodic Other diseases of veins and lymphatics (7 sources) Disorder of vein of lower extremity; Translations: [Other specified disorders of veins] 06-15-2023 Episodic Other gastrointestinal disorders (3 sources) Finding of abdominopelvic segment of trunk; Translations: [Intra-abdominal and pelvic swelling, mass and lump, unspecified site] Onset: 07-11-2023 07-11-2023 Episodic Other gastrointestinal disorders (1 source) Intra-abdominal and pelvic swelling, mass and lump, unspecified site; Translations: [Intra-abdominal and pelvic swelling, mass and lump, unspecified site] Onset: 07-11-2023 Episodic Other nervous system disorders (7 sources) Numbness of lower limb ; Translations: [Anesthesia of skin] 06-15-2023 Episodic Other screening for suspected conditions (not mental disorders or infectious disease) (3 sources) Radiology result abnormal; Translations: [Abnormal findings on diagnostic imaging of other specified body structures] Onset: 06-19-2023 06-16-2023 Chronic Pneumonia (except that caused by tuberculosis or sexually transmitted disease) (16 sources) Pneumonia; Translations: [Pneumonia, unspecified organism] 07-24-2020 Episodic Residual codes; unclassified (2 sources) History of laparoscopy; Translations: [Other specified postprocedural states] 07-11-2023 Episodic Residual codes; unclassified (2 sources) Other specified postprocedural states; Translations: [Other specified postprocedural states] Onset: 07-11-2023 Episodic Residual codes; unclassified (7 sources) History of surgical procedure on cervical spine; Translations: [Other specified postprocedural states] 06-15-2023 Episodic Unclassified (2 sources) Post-op Visit; Translations: [Post-op Visit] Onset: 07-31-2023 Unclassified (1 source) Laceration of left index finger w/o foreign body w/o damage to nail Unclassified (2 sources) S61.211A - Laceration without foreign body of left index finger without damage to nail, initial encounter,M20.029 - Boutonniere deformity of unspecified finger(s) Unclassified (1 source) Laceration of left index finger Varicose veins of lower extremity (7 sources) Varicose veins of lower extremity; Translations: [Asymptomatic varicose veins of left lower extremity] 06-15-2023 Episodic Past or Other Problems Problem Classification Problem Date Documented Da te Episodic/Chronic Other acquired deformities (2 sources) Boutonniere deformity of unspecified finger(s); 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)] Onset: 10-10-2024 Episodic Other injuries and conditions due to external causes (1 source) Unspecified injury of left wrist, hand and finger(s), initial encounter; Translations: [Unspecified injury of left wrist, hand and finger(s), initial encounter] Onset: 10-24-2024 Episodic Other screening for suspected conditions (not mental disorders or infectious disease) (19 sources) Mammography abnormal; Translations: [Other abnormal and inconclusive findings on diagnostic imaging of breast] Onset: 06-20-2024 01-06-2020 Episodic Results Test Name Value Interpretation Reference Range Facility Plastic Surgery Visit Report on 03-20-2025 [address] Report [facility] [address], [address] [place] [address] OFFICE VISIT Date of Service: 03/20/25 MR#: [id number] Acct: [id number] Name: AUDRA LINDSEY Rep #: [id number] : 1955 Provider: Dr. Harshil Ledesma MD Age/Sex: 69/F Location: [facility] Status: Signed Intake Vital Signs 12/20/24 13:56 03/20/25 14:31 Height 5 ft 5 in 5 ft 5 in BP 160/82 H 142/82 H Blood Pressure Location Lt brachial Lt brachial Position Sitting Sitting Respiration 18 18 Pulse 81 86 Temp 97.8 F 98.0 F Temp Source Oral Temporal Pulse Oximetry (%) 96 95 Oxygen Delivery Method room air room air Intake Visit Reasons: 3 M FU Chief Complaint: post op -left index finger extensor tendon repair Is patient in pain?: No Allergies clavulanic acid (From Augmentin) Adverse Reaction (Severe, Verified 03/20/25 14:32) Nausea Medications ???Medication ???Instructions ???Recorded ???Confirmed ???Type famotidine 20 mg tablet 20 mg PO QHS 07/23/20 03/20/25 His tory multivitamin 1 ea PO DAILY 07/23/20 03/20/25 Hi story alprazolam 0.5 mg tablet 0.5 mg PO DAILY PRN 06/15/2303/20 History ipratropium bromide 42 mcg (0.06 2 spray intranasal BID 06/15/23 History %) nasal spray estradiol 0.5 mg tablet 0.5 mg PO DAILY 09/17/24 03/20/25 History losartan 50 mg tablet 50 mg PO DAILY 09/17/24 03/20/25 H istory Have you fallen in the past year?: No Subjective Details: Doing well overall Happy with ultimate result 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 She is back at work and using her hand is normal Objective Details: - Left index finger: No wounds, healed completely - Slight resting residual boutonniere deformity - Negative Alon's test, central slip appears intact - Range of motion: 70 degrees at PIP joint, 30 degrees at DIP joint, resting negative 20 degrees at left index finger. No DIP joint hyperextension Coding Level of Care Code Global Post Op Diagnoses Central slip extensor tendon injury (boutonniere) M20.029 [facility] Medical History Wears glasses Wears partial dentures Cancer Restless legs Former smoker GERD (gastroesophageal reflux disease) Breast cyst Arthritis Hypertension Abnormal mammogram of left breast Chronic neck and back pain Shoulder pain Surgical History Status post Mohs surgery History of hysterectomy History of colonoscopy History of spinal surgery Family History Son Asthma Mother Breast cancer Hypertension Grandmother Breast cancer Brother Cancer liver cancer Grandfather Cancer prostate cancer Uncle Cancer prostate cancer Social History Smoking Status: Former smoker how long ago did patient quit smoking: quit 2005 alcohol intake: never substance use type: does not use additional social history: pt denies vaping, denies edibles, denies marijuana use Denies family history of blood clots Assessment and Plan (No Qualifiers) Assessment and Plan (1) Central slip extensor tendon injury (boutonniere): Status: Acute Comment: Left index finger Plan: Patient happy and would not like any further OT Follow-up as needed 03/21/25 1025 Date Harshil Ledesma MD Cosigner Signature: Date (if applicable) CC: Normal [facility] OT D/C of Non Returning Pton 02-18-2025 OT D/C of Non Returning Pt [facility] Occupational Therapy [facility] [address] [place] [address] [address] [place] [address] / REHABILITATION SERVICES DISCHARGE SUMMARY MR#: [id number] Acct: [id number] Name: AUDRA LINDSEY Rep #: [id number] : 1955 69 From: Alba HANCOCK/Graciela, CHT Referring Dr.: Dr. Harshil Ledesma MD Status: REG RCR Eval Date: Discharge Date: Patient Information Patient Information: AUDRA LINDSEY was seen in my office for initial evaluation on 10/03/24. The following Plan of Care was established for this patient: POC Established Initial Frequency: 1-2x /Week Initial Duration: 2 Months Plan: cont to improve functional DIP and PIP composite flexion Anticipated Interventions Anticipated Interventions: Early Active Motion, A/AAROM/PROM, Strengthening, Edema Control, Scar Care, Triggerpoint Release, Sensory Retraining, Modalities, Orthoses, Joint Protection/Energy Conservation, Ergonomic Education, Fine Motor Coord/Thierry, Education re assistive Equipment, Education re Diagnosis and Home Program Last Seen Last Seen: This patient was last seen in our office 12/23/24. Pertinent comments regarding their Occupational therapy will appear below: no further apts have been scheduled and due to time lapse in services pt is d/c at this time. At this point I will be discontinuing this patient from occupational therapy. I would be happy to see this patient again in the future if found appropriate by the physician. Thank you! Alba Goldman, OTR/L, CHT 02/18/25 1200 CC: Dr. Vinay Nettles MD; Dr. Harshil Ledesma MD MK Signed Normal [facility] Plastic Surgery Visit Report on 12-20-[address] [facility] [address], [address] [place] [address] OFFICE VISIT Date of Service: 12/20/24 MR#: [id number] Acct: [id number] Name: AUDRA LINDSEY Rep #: [id number] : 1955 Provider: Dr. Harshil Ledesma MD Age/Sex: 69/F Location: [email or web address] Status: Signed Intake Vital Signs 11/11/24 15:36 12/20/24 13:56 Height 5 ft 5 in 5 ft 5 in BP 154/81 H 160/82 H Blood Pressure Location Lt brachial Lt brachial Position Sitting Sitting Respiration 18 18 Pulse 76 81 Temp 99.1 F 97.8 F Temp Source Temporal Oral Pulse Oximetry (%) 98 96 Oxygen Delivery Method room air room air Intake Visit Reasons: 1 M FU Chief Complaint: post op -left index finger extensor tendon repair Is patient in pain?: No Allergies clavulanic acid (From Augmentin) Adverse Reaction (Severe, Verified 12/20/24 13:57) Nausea Medications ???Medication ???Instructions ???Recorded ???Confirmed ???Type famotidine 20 mg tablet 20 mg PO QHS 07/23/20 12/20/24 His tory multivitamin 1 ea PO DAILY 07/23/20 12/20/24 Hi story alprazolam 0.5 mg tablet 0.5 mg PO DAILY PRN 06/15/2312/20 History ipratropium bromide 42 mcg (0.06 2 spray intranasal BID 06/15/23 History %) nasal spray estradiol 0.5 mg tablet 0.5 mg PO DAILY 09/17/24 12/20/24 History losartan 50 mg tablet 50 mg PO DAILY 09/17/24 12/20/24 H istory Have you fallen in the past year?: No Nurse's Note: pt here post op Subjective Details: Operative Information Date of Procedure: 09/18/24 Pre-Operative Diagnosis: Left index finger extensor tendon laceration at the central slip causing Boutonniere deformity Post-Operative Diagnosis: Same Surgery/Procedure Performed: 1) Repair of left index finger central slip injury, CPT: 35333 Current encounter, 20 December 2024: Patient back to work doing well. She has a small residual boutonniere deformity that sometimes is completely gone in the morning after she wears her custom splint made by OT, but then recurs during the day. She is happy overall with the results as the boutonniere deformity is now minimal and she is regaining function of the finger. Objective Details: ros - Musculoskeletal: Reports difficulty bending left index finger completely, swelling increases during the day, denies significant pain - Left index finger: No wounds, healed completely - Slight resting residual boutonniere deformity - Negative Alon's test, central slip appears intact - Range of motion: 70 degrees at PIP joint, 30 degrees at DIP joint, resting negative 20 degrees at left index finger. No DIP joint hyperextension Coding Level of Care Code Global Post Op Diagnoses Central slip extensor tendon injury (boutonniere) M20.029 [facility] Medical History Wears glasses Wears partial dentures Cancer Restless legs Former smoker GERD (gastroesophageal reflux disease) Breast cyst Arthritis Hypertension Abnormal mammogram of left breast Chronic neck and back pain Shoulder pain Surgical History Status post Mohs surgery History of hysterectomy History of colonoscopy History of spinal surgery Family History Son Asthma Mother Breast cancer Hypertension Grandmother Breast cancer Brother Cancer liver cancer Grandfather Cancer prostate cancer Uncle Cancer prostate cancer Social History Smoking Status: Former smoker how long ago did patient quit smoking: quit 2005 alcohol intake: never substance use type: does not use additional social history: pt denies vaping, denies edibles, denies marijuana use Denies family history of blood clots Assessment and Plan (No Qualifiers) Assessment and Plan (1) Central slip extensor tendon injury (boutonniere): Status: Acute Comment: Left index finger Plan: Improved overall but persistent slight boutonniere deformity at rest Needs to continue OT and splinting Follow-up with me in an early fall to check the progress Patient happy with the plan 12/20/24 1904 Date Harshil Ledesma MD Cosigner Signature: Date (if applicable) CC: Normal [facility] Plastic Surgery Visit Report on 11-11-[address] Report [facility] [address], [address] [place] [address] OFFICE VISIT Date of Service: 11/11/24 MR#: [id number] Acct: [id number] Name: AUDRA LINDSEY Rep #: [id number] : 1955 Provider: Dr. Harshil Ledesma MD Age/Sex: 69/F Location: [facility] Status: Signed Intake Vital Signs 09/26/24 11:27 11/11/24 15:36 Height 5 ft 5 in 5 ft 5 in BP 154/81 H Blood Pressure Location Lt brachial Position Sitting Respiration 18 Pulse 76 Temp 99.1 F Temp Source Temporal Pulse Oximetry (%) 98 Oxygen Delivery Method room air Intake Visit Reasons: FOLLOW UP Chief Complaint: post op -left index finger extensor tendon repair Is patient in pain?: No Allergies clavulanic acid (From Augmentin) Adverse Reaction (Severe, Verified 11/11/24 15:38) Nausea Medications ???Medication ???Instructions ???Recorded ???Confirmed ???Type famotidine 20 mg tablet 20 mg PO QHS 07/23/20 11/11/24 His tory multivitamin 1 ea PO DAILY 07/23/20 11/11/24 Hi story alprazolam 0.5 mg tablet 0.5 mg PO DAILY PRN 06/15/2311/11 History ipratropium bromide 42 mcg (0.06 2 spray intranasal BID 06/15/23 History %) nasal spray estradiol 0.5 mg tablet 0.5 mg PO DAILY 09/17/24 11/11/24 History losartan 50 mg tablet 50 mg PO DAILY 09/17/24 11/11/24 H istory doxycycline hyclate 100 mg capsule 100 mg PO BID 7 days #14 caps 11/11/24 Rx Have you fallen in the past year?: No Nurse's Note: pt here for post op left index finger extensor tendon repair Subjective Details: The patient is a 69-year-old female presenting for follow-up after left index finger central slip repair. The repair was performed approximately seven weeks ago, and the patient has been engaging in hand therapy as instructed. She reports difficulty bending the finger completely, although she can bend it partially when isolated. The patient has been using scar tape, which seems to reduce swelling when worn overnight. She notes that swelling increases during the day after removing the tape, but it does not cause significant pain. The patient has been advised to avoid heavy lifting and has been adhering to this recommendation, although she has engaged in some activities like moving rocks and power washing decks. Attestation: Documentation on this patient encounter was supported using ambient scribe technology/ voice AI technology. The patient consented to recording for the purpose of documenting the encounter. Provider reviewed content of the generated note prior to signature. Objective Details: ros - Musculoskeletal: Reports difficulty bending left index finger completely, swelling increases during the day, denies significant pain - Left index finger: Healed with a tiny blood blister from a recent cut, no spitting sutures, no fluid collections or induration - Minimal residual boutonniere deformity - Negative Alon's test, central slip appears intact - Range of motion: 70 degrees at PIP joint, 45 degrees at DIP joint, resting negative 20 degrees at left index finger. No DIP joint hyperextension Coding Level of Care Code Global Post Op Diagnoses Central slip extensor tendon injury (boutonniere) M20.029 [facility] Medical History Wears glasses Wears partial dentures Cancer Restless legs Former smoker GERD (gastroesophageal reflux disease) Breast cyst Arthritis Hypertension Abnormal mammogram of left breast Chronic neck and back pain Shoulder pain Surgical History Status post Mohs surgery History of hysterectomy History of colonoscopy History of spinal surgery Family History Son Asthma Mother Breast cancer Hypertension Grandmother Breast cancer Brother Cancer liver cancer Grandfather Cancer prostate cancer Uncle Cancer prostate cancer Social History Smoking Status: Former smoker how long ago did patient quit smoking: quit 2005 alcohol intake: never substance use type: does not use additional social history: pt denies vaping, denies edibles, denies marijuana use Denies family history of blood clots Assessment and Plan (No Qualifiers) Assessment and Plan (1) Central slip extensor tendon injury (staniere): Status: Acute Comment: Left index finger Plan: 1. Left index finger central slip repair The patient is progressing well post-surgery, with the central slip appearing intact and no significant complications noted. Continued hand therapy is recommended to improve range of motion and function. The patient should avoid heavy lifting to prevent strain on the (more content not included)... Normal [facility] Bone density reportOrdered B y: Corky Messina on 10-18-2024 Study report Skeletal system DXA [facility] Imaging Services [address] [place] [address] Dexa Bone Density Study MR#: [id number] Acct: [id number] Name: AUDRA LINDSEY Rep #: [id number] : 1955 F 69 From: Dereje Messina MD PCP: Dr. 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 Postmenopausal. TECHNIQUE: DXA scan of sites with data reported below. REFERENCE LINKS: ISCD Adult Positions COMPARISON: Prior study dated October 13, 2022 FINDINGS: BMD and T-SCORES Lumbar spine: 1.468 g/cm2, T-score 3.9 Levels: L1 through L4 Change from prior: Loss of 1.7%. Left femoral neck: 0.932 g/cm2, T-score 0.7 Femoral neck comparison data not recommended for monitoring change. Left total hip: 1.015 g/cm2, T-score 0.6 Change from prior: Loss of 2.2%. Right femoral neck: 0.864 g/cm2, T-score 0.1 Femoral neck comparison data not recommended for monitoring change. Right total hip: 0.910 g/cm2, T-score -0.3 Change from prior: Improvement of 1.6%. The World Health Organization has defined the following categories based on bonedensity: Normal bone density: T-score equal to or greater than -1.0 Osteopenia: T-score between -1.0 and -2.5 Osteoporosis: T-score equal to or less than -2.5 The patient does meet the pharmacological treatment recommendations for prevention of osteoporosis. BD/Dexa Bone Density Study IMPRESSION: NORMAL T-SCORES. Recommend follow-up as clinically warranted. Reading Location: [place] [address] CC: Bertin Garcia; Dr. Vinay Nettles MD ~ Craniologist: Signed [facility] Calculated very low density lipoprotein (VLDL) cholesterol measurementOrdered By: Bertin Garcia on 10-17-2024 Calculated very low density lipoprotein (VLDL) cholesterol measurement 22 mg/dL 5-40 [facility] Dexa Bone Density Studyon Dexa Bone Density Study [facility] Imaging Services [address] [place], [place] [id number] Dexa Bone Density Study MR#: [id number] Acct: [id number] Name: AUDRA LINDSEY Rep #: [id number] : 1955 F 69 From: Corky bustillos MD PCP: Dr. Vinay Nettles MD Status: REG CLI Study: Dexa Bone Density Study Date of Exam: 10/17/24 Exam# [id number] Ordering Dr: Bertin Garcia NP, NP PROCEDURE: DEXA BONE DENSITY STUDY 10/17/2024 REASON FOR EXAM: F, age 69 y/o . Postmenopausal. TECHNIQUE: DXA scan of sites with data reported below. REFERENCE LINKS: ISCD Adult Positions COMPARISON: Prior study dated October 13, 2022 FINDINGS: BMD and T-SCORES Lumbar spine: 1.468 g/cm2, T-score 3.9 Levels: L1 through L4 Change from prior: Loss of 1.7%. Left femoral neck: 0.932 g/cm2, T-score 0.7 Femoral neck comparison data not recommended for monitoring change. Left total hip: 1.015 g/cm2, T-score 0.6 Change from prior: Loss of 2.2%. Right femoral neck: 0.864 g/cm2, T-score 0.1 Femoral neck comparison data not recommended for monitoring change. Right total hip: 0.910 g/cm2, T-score -0.3 Change from prior: Improvement of 1.6%. The World Health Organization has defined the following categories based on bone density: Normal bone density: T-score equal to or greater than -1.0 Osteopenia: T-score between -1.0 and -2.5 Osteoporosis: T-score equal to or less than -2.5 The patient does meet the pharmacological treatment recommendations for prevention of osteoporosis. BD/Dexa Bone Density Study IMPRESSION: NORMAL T-SCORES. Recommend follow-up as clinically warranted. Reading Location: [place] [address] CC: Bertin Garcia; Dr. Vinay Nettles MD Craniologist: Signed Normal [facility] LDL calc ser/plasOrdered By: Bertin Garcia on 10-17-2024 Cholesterol in LDL [Mass/Vol] 136 mg/dL [facility] Comment on above: Guxtdmpcch=366-126 m g/dL & Higher Qgdr=706 mg/dL or greater Lipid Profileon 10-17-2024 CHOL:HDL 2.99 Normal [facility] Comment on above: Order Comment: Order Date: 10/07/24Order Info: [id number] - LIPID Performed By: #### L 606.0218 ####[facility] [address] [place], [address] Cholesterol [Mass/Vol] 237 mg/dL High <=200 [facility] Comment on above: Order Comment: Order Date: 10/07/24Order Info: [id number] - LIPID Result Comment: Chol esterol level, Desirable <200 mg/dL Borderline high cholesterol 200-239 mg/dL High cholesterol >=240 mg/dL Recommendations of the NCEP Adult Treatment Panel for the following risk-cutoff thresholds for the [place] population. Performed By: #### L 500.4100 ####[facility] [address] [place], [address] Cholesterol in HDL [Mass/Vol] 79 mg/dL Normal [facility] Comment on above: Order Comment: Order Date: 10/07/24Order Info: [id number] - LIPID Result Comment: Krystal onal Cholesterol Education Program (NCEP) guidelines: <40 mg/dL: Low HDL-cholesterol (major risk factor for CHD) >= 60 mg/dL: High HDL-cholesterol (negative risk factor for CHD) HDL-cholesterol is affected by a number of factors, e.g. smoking, exercise, hormones, sex and age. Performed By: #### L 500.4100 ####[facility] [address] [place], [address] Cholesterol in LDL [Mass/Vol] 136 mg/dL Normal [facility] Comment on above: Order Comment: Order Date: 10/07/24Order Info: [id number] - LIPID Result Comment: Bord vddoqk=001-049 mg/dL Higher Jpxh=912 mg/dL or greater Performed By: #### L 500.4100 ####[facility] [address] [place], [address] Cholesterol in VLDL [Mass/Vol] 22 mg/dL Normal 5-40 [facility] Comment on above: Order Comment: Order Date: 10/07/24Order Info: [id number] - LIPID Performed By: #### L 500.4100 ####[facility] [address] [place], [address] Triglyceride [Mass/Vol] 111 mg/dL Normal [facility] Comment on above: Order Comment: Order Date: 10/07/24Order Info: [id number] - LIPID Result Comment: The drugs N-Acetylcysteine and Metamizole may falsely depress this assay. Normal range: <150 mg/dL Borderline High: 150-199 mg/dL High: 200-499 mg/dL Very High: >500 mg/dL Performed By: #### L 500.4100 ####[facility] [address] [place], [address] Screening total cholesterol/ high density lipoprotein (HDL) cholesterol ratioOrdered By: Bertin Garcia on 10-17-2024 Cholesterol.total/Chol esterol in HDL [Mass ratio] 2.99 {ratio} [facility] Serum or plasma cholesterol in HDL measurement (mass/volume)Ordered By: Bertin Garcia on 10-17-2024 Cholesterol in HDL [Mass/Vol] 79 mg/dL >40 [facility] Comment on above: National Cholesterol Education Program (NCEP) guidelines:<40 mg/dL: Low HDL-cholesterol (major risk factor for CHD)>= 60 mg/dL: High HDL-cholesterol (negative risk factor for CHD)HDL-cholesterol is affected by a number of factors, e.g. smoking, exercise, hormones, sex and age. Serum or plasma cholesterol measurement (mass/volume)Ordered By: Bertin Garcia on 10-17-2024 Cholesterol [Mass/Vol] 237 mg/dL High <201 [facility] Comment on above: Cholesterol level, D esirable <200 mg/dLBorderline high cholesterol 200-239 mg/dLHigh cholesterol >=240 mg/dLRecommendations of the NCEP Adult Treatment Panel for the following risk-cutoff thresholds for the [place] population. Triglycerides measurementOrd ered By: Bertin Garcia on 10-17-2024 Triglyceride [Mass/Vol] 111 mg/dL <199 [facility] Comment on above: The drugs N-Acetylcy steine and Metamizole may falsely depress this assay. Normal range: <150 mg/dLBorderline High: 150-199 mg/dLHigh: 200-499 mg/dLVery High: >500 mg/dL Plastic Surgery Visit Report on 10-15-2024 [address] Report [facility] [address], [address] [place] [address] OFFICE VISIT Date of Service: 10/15/24 MR#: [id number] Acct: [id number] Name: AUDRA LINDSEY Rep #: [id number] : 1955 Provider: Dr. Harshil Ledesma MD Age/Sex: 69/F Location: [place] [address] Status: Signed Intake Vital Signs 09/26/24 11:27 Height 5 ft 5 in BP 154/83 H Blood Pressure Location Rt brachial Position Sitting Respiration 18 Pulse 78 Temp 98.3 F Temp Source Temporal Pulse Oximetry (%) 98 Oxygen Delivery Method room air Intake Visit Reasons: 2 WK F/U Chief Complaint: post op Allergies clavulanic acid (From Augmentin) Adverse Reaction (Severe, Verified 10/01/24 14:16) Nausea Have you fallen in the past year?: No Subjective Details: Patient 1 month out from repair of the extensor tendon at the central slip on the left index finger. She has been working with occupational therapy for the past 2 weeks on range of motion since the pin was pulled. She does not have any boutonniere deformity at this time. She is happy with the result. She is working on improving the amount of flexion at the PIP joint, which is reportedly only 50 degrees at this point. Objective Details: Left upper Extremity Inspection: No drainage. Suture line intact. No boutonniere deformity of the left index finger. Motor: Patient able to bend left index PIP joint approximately 50 degrees. Sensory: Intact to light touch on the radial and ulnar borders. Vascular: Finger tips are warm and well perfused with <2 second capillary refill. Coding Level of Care Code Global Post Op Diagnoses Central slip extensor tendon injury (boutonniere) M20.029 [facility] Medical History Wears glasses Wears partial dentures Cancer Restless legs Former smoker GERD (gastroesophageal reflux disease) Breast cyst Arthritis Hypertension Abnormal mammogram of left breast Chronic neck and back pain Shoulder pain Surgical History Status post Mohs surgery History of hysterectomy History of colonoscopy History of spinal surgery Family History Son Asthma Mother Breast cancer Hypertension Grandmother Breast cancer Brother Cancer liver cancer Grandfather Cancer prostate cancer Uncle Cancer prostate cancer Social History Smoking Status: Former smoker how long ago did patient quit smoking: quit 2005 alcohol intake: never substance use type: does not use additional social history: pt denies vaping, denies edibles, denies marijuana use Denies family history of blood clots Assessment and Plan (No Qualifiers) Assessment and Plan (1) Central slip extensor tendon injury (boutonniere): Status: Acute Comment: Left index finger Plan: Continue occupational therapy and Occupational Therapy splinting Patient progressing well. No signs of recurrence of the boutonniere deformity. Central slip repair appears intact. Suture line is healed well. Expected course Follow-up in 2 weeks Patient happy with the plan 10/15/241806 Date Harshil Ledesma MD [facility] Signature: Date (if applicable) CC: Normal [facility] OT General Evaluationon OT General Evaluation [facility] Occupational Therapy Health[address] [place] [address] / REHABILITATION SERVICES INITIAL EVALUATION MR#: [id number] Acct: [id number] Name: AUDRA LINDSEY Rep #: [id number] : 1955 69 From: Alba Goldman OTR/L, CHT Referring Dr.: Dr. Harshil Ledesma MD Status: REG RCR Insurance: MMO MEDICARE Eval Date: SELF PAY INSURANCE Patient's Visit Information Visit Information Visit Information: AUDRA LINDSEY is a 69 year old F, referred to Occupational Therapy by Dr. Harshil Ledesma MD, with a diagnosis of left IF extensor tendon laceration. Date of Evaluation: Occupational Therapist: Alba Goldman, OTR/L, CHT Subjective Subjective: This 69-year-old female was seen for OT eval with dx of extensor tendon laceration of left IF. Pt states on September 14, 2024, she was sharpening a knife and cut her finger. pt underwent sx repair of central slip on September 182024. pt had pin removed yesterday and arrives today for initiate of therapy services and custom orthosis. 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 custom exercise orthosis to 30* of PIP flexion and full ext. No other measurements taken at this time - will cont to measure PIP flexion/ext and watch for signs of complications pt demo full flexion of right IF Strength Strength Comments: will test later date Sensation Sensation Comments: denies Quick DASH-Disab of Arm,Shoulder Hand Quick DASH Score: 71.4275 Goals Goal:100% adherence to protocol: Yes Comment: following central slip repair guidelines Goal:Daily scar massage when approriate: Yes Goal:ROM equal to unaffected hand: Yes Goal:Tight Cooper/Pinch strength at least 75% of unaffected hand: Yes Comment: will not initiate until week 6 Goal:No pain with affected hand use: Yes Goal:Full use of affected hand in daily activities including work: Yes Goal:Improvement in sensation documented by [facility] monofiliaments: Yes Rehabilitation General Assessment: pt arrives 2 weeks following a central slop extensor tendon repair with use of suture anchor pin removed yesterday. pt demo with newly healing structures and has limited use of left UE for ADLs and IADLs. pt demo need for skilled OT services 1-2x week for 8 weeks to assist pt in return to her PLOF. Today therapist chapo. custom orthosis placing left IF MP in 30* with PIP and DIP in full extension. Therapist ed, pt she needs to wear at all times unless performing her scar mtg. Pt demo understanding. Therapist chapo. exercise splint keeping PIP 0* allowing DIP flexion, therapist advised to perform every 2 hours. pt demo understanding. therapist chapo. another exercise splint for her PIP that will allow PIP flexion only to 30* and full extension. Pt demo understanding of her ex. and will return this week. Pts incision looks great, dorsal stitches intact and will remove in a few days or week depending on how healing looks. Pt demo understanding and agree to POC. Rehabilitation Potential: Good Anticipated Interventions Anticipated Interventions: Early Active Motion, A/AAROM/PROM, Strengthening, Edema Control, Scar Care, Triggerpoint Release, Sensory Retraining, Modalities, Orthoses, Joint Protection/Energy Conservation, Ergonomic Education, Fine Motor Coord/Thierry, Education re assistive Equipment, Education re Diagnosis and Home Program Visit Plan Frequency: 1-2x /Week Duration: 2 Months General Plan: Day 3 to week 4 Orthotics: Hand based with MCP in 30??? flexion volar with PIP DIP 0??? 100% except for exercise. For CS repair: Exercise orthosis 1: PIP flexed 30???DIP free. Exercise orthosis 2: PIP in 0* and DIP free Therapeutic exercise day 3-week 4 Repaired CS: Place MCP in slight flexion. ??? Active PIP DIP flexion within confines of orthosis 1, then active extension to 0???. ??? Active DIP flexion within confines of orthosis 2, then active extension to 0???. Week 3: if no lag, adjust orthosis 1 PIP to 40???flexion. Week 4: by end of week 4, if no lag, continue to progress flexion of PIP joint adjusting orthosis 1 by 10??? up to 60???-70???. Phase II protection phase: 4-6 weeks Discharge hand-based orthosis. Replace with finger based volar with PIP in 0???for CS or PIP DIP in 0???for CS LB repair. Week 4: wear finger-based extension orthosis when not exercising. Week 5: gradually wean from orthosis during day for light functional typing, writing, dressing and eating. If PIP lag, add reverse blocking with active PIP extension. If lag, wear PIP and DIP in 0???orthosis during sleep. Phase III in (more content not included)... Normal [facility] Plastic Surgery Visit Report on 10-01-2024 [address] Report [facility] [address], [address] [place], [place] [address] OFFICE VISIT Date of Service: 10/01/24 MR#: [id number] Acct: [id number] Name: AUDRA LINDSEY Rep #: [id number] : 1955 Provider: Dr. Harshil Ledesma MD Age/Sex: 69/F Location: [place] [address] Status: Signed Intake Vital Signs 09/18/24 13:03 09/26/24 11:27 Height 5 ft 5 in 5 ft 5 in Intake Visit Reasons: 1 WK F/U Chief Complaint: post op Is patient in pain?: No Allergies clavulanic acid (From Augmentin) Adverse Reaction (Severe, Verified 10/01/24 14:16) Nausea Medications ???Medication ???Instructions ???Recorded ???Confirmed ???Type famotidine 20 mg tablet 20 mg PO QHS 07/23/20 10/01/24 His tory multivitamin 1 ea PO DAILY 07/23/20 10/01/24 Hi story alprazolam 0.5 mg tablet 0.5 mg PO DAILY PRN 06/15/2310/01 History ipratropium bromide 42 mcg (0.06 2 spray intranasal BID 06/15/23 History %) nasal spray cephalexin 500 mg capsule 500 mg PO Q6 #40 CAPSULES 09/14/24 10/01/24 Rx estradiol 0.5 mg tablet 0.5 mg PO DAILY 09/17/24 10/01/24 History losartan 50 mg tablet 50 mg PO DAILY 09/17/24 10/01/24 H istory doxycycline hyclate 100 mg capsule 100 mg PO BID 7 days #14 caps 10/01/24 Rx oxycodone 5 mg tablet 5 mg PO Q12H PRN pain 5 days #10 0 09/18/24 10/01/24 Rx tabs Have you fallen in the past year?: No Subjective Details: Doing well overall. No fevers or chills. No pain in the finger Objective Details: Left upper Extremity Inspection: No drainage or redness. No fluctuance. K wire intact keeping PIP joint in extension on the left index finger. K wire was removed without issue Motor: Deferred Sensory: Intact to light touch on the radial and ulnar borders. Vascular: Finger tips are warm and well perfused with <2 second capillary refill. Coding Level of Care Code Global Post Op Diagnoses Central slip extensor tendon injury (gerardoonniere) M20.029 [facility] Medical History Wears glasses Wears partial dentures Cancer Restless legs Former smoker GERD (gastroesophageal reflux disease) Breast cyst Arthritis Hypertension Abnormal mammogram of left breast Chronic neck and back pain Shoulder pain Surgical History Status post Mohs surgery History of hysterectomy History of colonoscopy History of spinal surgery Family History Son Asthma Mother Breast cancer Hypertension Grandmother Breast cancer Brother Cancer liver cancer Grandfather Cancer prostate cancer Uncle Cancer prostate cancer Social History Smoking Status: Former smoker how long ago did patient quit smoking: quit 2005 alcohol intake: never substance use type: does not use additional social history: pt denies vaping, denies edibles, denies marijuana use Denies family history of blood clots Assessment and Plan (No Qualifiers) Assessment and Plan (1) Central slip extensor tendon injury (gerardoonniere): Status: Acute Comment: Left index finger Plan Placed back in a splint today K wire removed without issue Sutures from the ulnar and radial extension incisions were removed today, central sutures will be removed next week by OT Patient referred to OT and will start range of motion of the PIP joint tomorrow with placement of a custom Orthoplast splint. Follow-up with me in 2 weeks to check progress 10/02/24 1230 Date Harshil Keyes Signature: Date (if applicable) CC: Normal [facility] Plastic Surgery Visit Report on 09-26-2024 [address] Visit Report [facility] [address], [address] [place] [address] OFFICE VISIT Date of Service: 09/26/24 MR#: [id number] Acct: [id number] Name: AUDRA LINDSEY Rep #: [id number] : 1955 Provider: Dr. Harshil Ledesma MD Age/Sex: 69/F Location: [facility] Status: Signed Intake Vital Signs 09/18/24 13:03 09/26/24 11:27 Height 5 ft 5 in 5 ft 5 in BP 154/83 H Blood Pressure Location Rt brachial Position Sitting Respiration 18 Pulse 78 Temp 98.3 F Temp Source Temporal Pulse Oximetry (%) 98 Oxygen Delivery Method room air Intake Visit Reasons: CAST CHANGE Chief Complaint: post op cast change Is patient in pain?: Yes (3-09/05) Allergies clavulanic acid (From Augmentin) Adverse Reaction (Severe, Verified 09/26/24 11:28) Nausea Medications ???Medication ???Instructions ???Recorded ???Confirmed ???Type famotidine 20 mg tablet 20 mg PO QHS 07/23/20 09/26/24 His tory multivitamin 1 ea PO DAILY 07/23/20 09/26/24 Hi story alprazolam 0.5 mg tablet 0.5 mg PO DAILY PRN 06/15/2309/26 History ipratropium bromide 42 mcg (0.06 2 spray intranasal BID 06/15/23 History %) nasal spray cephalexin 500 mg capsule 500 mg PO Q6 #40 CAPSULES 09/14/24 09/26/24 Rx estradiol 0.5 mg tablet 0.5 mg PO DAILY 09/17/24 09/26/24 History losartan 50 mg tablet 50 mg PO DAILY 09/17/24 09/26/24 H istory doxycycline hyclate 100 mg capsule 100 mg PO BID 7 days #14 caps 09/26/24 Rx oxycodone 5 mg tablet 5 mg PO Q12H PRN pain 5 days #10 0 4/23/25 05/01/25 Rx tabs Have you fallen in the past year?: No Nurse's Note: pt here complaining of pain after splint placement. Coding Level of Care Code Global Post Op Diagnoses Central slip extensor tendon injury (staniere) M20.029 [facility] Medical History Wears glasses Wears partial dentures Cancer Restless legs Former smoker GERD (gastroesophageal reflux disease) Breast cyst Arthritis Hypertension Abnormal mammogram of left breast Chronic neck and back pain Shoulder pain Surgical History Status post Mohs surgery History of hysterectomy History of colonoscopy History of spinal surgery Family History Son Asthma Mother Breast cancer Hypertension Grandmother Breast cancer Brother Cancer liver cancer Grandfather Cancer prostate cancer Uncle Cancer prostate cancer Social History Smoking Status: Former smoker how long ago did patient quit smoking: quit 2005 alcohol intake: never substance use type: does not use additional social history: pt denies vaping, denies edibles, denies marijuana use Denies family history of blood clots Assessment and Plan (No Qualifiers) Assessment and Plan (1) Central slip extensor tendon injury (gerardoonniere): Status: Acute Comment: Left index finger Plan Splint too tight. It was changed in the office today by nursing. No change in the status of finger (wound appeared C/D/I on my exam, no infection around pin). F/u on Monday. Patient happy with new splint 09/26/24 1352 Date Harshil Keyes Signature: Date (if applicable) CC: Normal [facility] Plastic Surgery Visit Report on 09-24-2024 [address]astic Surgery Visit Report [facility] [address], [address] [place] [address] OFFICE VISIT Date of Service: 09/24/24 MR#: [id number] Acct: [id number] Name: AUDRA LINDSEY Rep #: [id number] : 1955 Provider: Dr. Harshil Ledesma MD Age/Sex: 69/F Location: [place] [address] Status: Signed Intake Vital Signs 09/18/24 13:03 Height 5 ft 5 in Intake Visit Reasons: POST OP Chief Complaint: post op Is patient in pain?: No Allergies clavulanic acid (From Augmentin) Adverse Reaction (Severe, Verified 09/24/24 13:16) Nausea Have you fallen in the past year?: No Subjective Details: Date of Procedure: 09/18/24 Pre-Operative Diagnosis: Left index finger extensor tendon laceration at the central slip causing Boutonniere deformity Post-Operative Diagnosis: Same Surgery/Procedure Performed: 1) Repair of left index finger central slip injury, CPT: 90214 Current encounter, 24 September 2024: patient postop week 1. Doing well. Pain controlled no fevers chills or drainage Objective Details: Left upper Extremity Inspection: No drainage or redness. No fluctuance. Pin intact keeping PIP joint in extension on the left index finger. Motor: Deferred Sensory: Intact to light touch on the radial and ulnar borders. Vascular: Finger tips are warm and well perfused with <2 second capillary refill. Coding Level of Care Code Global Post Op Diagnoses Central slip extensor tendon injury (boutonniere) M20.029 [facility] Medical History Wears glasses Wears partial dentures Cancer Restless legs Former smoker GERD (gastroesophageal reflux disease) Breast cyst Arthritis Hypertension Abnormal mammogram of left breast Chronic neck and back pain Shoulder pain Surgical History Status post Mohs surgery History of hysterectomy History of colonoscopy History of spinal surgery Family History Son Asthma Mother Breast cancer Hypertension Grandmother Breast cancer Brother Cancer liver cancer Grandfather Cancer prostate cancer Uncle Cancer prostate cancer Social History Smoking Status: Former smoker how long ago did patient quit smoking: quit 2005 alcohol intake: never substance use type: does not use additional social history: pt denies vaping, denies edibles, denies marijuana use Denies family history of blood clots Assessment and Plan (No Qualifiers) Assessment and Plan (1) Central slip extensor tendon injury (boutonniere): Status: Acute Comment: Left index finger Plan: Expected course thus far Placed back in extension splint Plan for another week of K wire then remove K wire and begin hand therapy 09/24/24 1348 Date [facility]: Date (if applicable) CC: Normal [facility] Finger(s) Min 2 Viewson 08-28 Finger(s) Min [address] [facility] Imaging Services [address] [place] [address] Finger(s) Min 2 Views MR#: [id number] Acct: [id number] Name: AUDRA LINDSEY Rep #: [id number] : 1955 F 69 From: Harshil Cortez PCP: Dr. Vinay Nettles MD Status: [facility] Study: Finger(s) Min 2 Views Date of Exam: 09/18/24 Exam# [id number] Ordering Dr: Harshil Ledesma MD PROCEDURE: FINGER(S) MIN 2 VIEWS 09/18/2024 REASON FOR EXAM: CENTRAL SLIP LACERATION, LEFT INDEX FINGER BOUTONNIERE DEFORMITY TECHNIQUE: 6 fluoroscopic images were submitted. Fluoroscopy time was 35 seconds. Peak skin radiation dose was 0.19 mGy. COMPARISON: 09/14/2024 FINDINGS: See impression RAD/Finger(s) Min 2 Views IMPRESSION: Fixation screw placed along the dorsal base of the 2nd middle phalanx. See operative report for further details. Reading Location: [facility] CC: Dr. Vinay Nettles MD; Dr. Harshil Ledesma MD Craniologist: Signed Normal [facility] H AND P Exam - Surgicalon H&P Exam - Surgical [facility] Medical Records Department [address] [place] [address] H P Exam - Surgical 09/18/24 1031 MR#: [id number] Acct: [id number] Name: AUDRA LINDSEY Rep #: [id number] : 1955 69 From: Harshil Ledesma MD PCP: Dr. 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 The injury occurred on Monday, 15 September 2024, when she was sharpening a knife and accidentally cut herself. She went to the emergency department where she was washed out and closed and placed on antibiotics. She was referred to our clinic. Patient is not a smoker. No personal or family history of bleeding or clotting problems or problems with anesthesia. Caprini score is 4 Her tetanus is up-to-date from 2022 She has no prior history of hand trauma in this location. Current Encounter (DATE OF SURGERY H P UPDATE): I saw and examined the patient this morning in pre- operative holding. We discussed risks and benefits of today's surgery and they would like to proceed. NO CHANGE in health history since last seen and evaluated. Ready to proceed with surgery. [facility] Medical History Wears glasses Wears partial dentures Cancer Restless legs Former smoker GERD (gastroesophageal reflux disease) Breast cyst Arthritis Hypertension Abnormal mammogram of left breast Chronic neck and back pain Shoulder pain Home Medications ???Medication ???Instructions ???Recorded ???Last Taken ???Type famotidine 20 mg tablet 20 mg PO QHS 07/23/20 Unknown Hist ory multivitamin 1 ea PO DAILY 07/23/20 Unknown His tory alprazolam 0.5 mg tablet 0.5 mg PO DAILY PRN 06/15/23 Unkno wn History ipratropium bromide 42 mcg (0.06 2 spray intranasal BID 06/15/23 Un known History %) nasal spray cephalexin 500 mg capsule 500 mg PO Q6 #40 CAPSULES 09/14/24 09/18/24 09:00 Rx estradiol 0.5 mg tablet 0.5 mg PO DAILY 09/17/24 Unknown H istory losartan 50 mg tablet 50 mg PO DAILY 09/17/24 Unknown Hi story doxycycline hyclate 100 mg capsule 100 mg PO BID 7 days #14 caps Unknown Rx oxycodone 5 mg tablet 5 mg PO Q12H PRN pain 5 days #10 0 09/18/24 Unknown Rx tabs Allergy/AdvReac Type Severity Reaction Status Date / Time clavulanic acid (From AdvReac Severe Nausea Verified 09/18/24 13:02 Augmentin) Family History Son Asthma Mother Breast cancer Hypertension Grandmother Breast cancer Brother Cancer liver cancer Grandfather Cancer prostate cancer Uncle Cancer prostate cancer Surgical History Status post Mohs surgery History of hysterectomy History of colonoscopy History of spinal surgery Social History Smoking Status: Former smoker how long ago did patient quit smoking: quit 2005 alcohol intake: never substance use type: does not use additional social history: pt denies vaping, denies edibles, denies marijuana use Denies family history of blood clots Physical Exam Narrative Left upper Extremity Inspection: Left index finger with 2.5 cm laceration just proximal to the PIP joint on the dorsum. She has an obvious boutonniere deformity. Palpation: No collateral ligament instability at the PIP joint of the left index finger. She has intact and normal passive range of motion of the index finger PIP joint limited only by pain. Motor: Able to bend and extend all MP, PIP, and DIP joints, except she is unable to extend the PIP joint of the left index finger. She has a positive Alon's test. Sensory: Intact to light touch on the radial and ulnar borders. Sensation to light touch intact distal to the zone of injury. Vascular: Finger tips are warm and well perfused with <2 second capillary refill. Assessment Plan Assessment/Plan (1) Central slip extensor tendon injury (boutonniere): PLAN: Plan X-ray reviewed no bony abnormality but boutonniere deformity seen on the x-ray. I talked her about the boutonniere deformity and how the central slip was lacerated and the lateral bands are displaced volarly and are hyperextending the DIP joint. I talked to the patient extensively about the risks of surgery, including bleeding, infection, hardware failure, hardware infection, damage to surrounding structures, poor scaring, surgical site dehiscence and wound formation, need for wound care, need for repeat operations, failure to obtain the desired result, and the risks of anesthesia. We talked abou (more content not included)... Normal [facility] MR/POSTOP.[facility] 09-18-2024 MR/POSTOP.[facility] Medical Records Department [address] [place] [address] Anesthesia Postop Eval I 09/18/24 1546 MR#: [id number] Acct: [id number] Name: AUDRA LINDSEY Rep #: [id number] : 1955 69 From: Michael Holder CRNA PCP: Dr. Vinay Nettles MD Status:REG SD Y Race: C Location: [place] [address] Anesthesia: Postop Eval I Current Vital Signs Temperature: 97.4 F Pulse Rate: 83 Blood Pressure: 150/71 Respiratory Rate: 20 Pulse Ox: 99 Oxygen Delivery Method: Room Air Assessment Airway patent: Yes Spontaneous unlabored respirations: Yes Mental status: Awake and Calm nausea: No Vomiting: No Anesthesia Complication: No Fluid Hydration Crystalloid volume administer (ml): 700 Total IV fluid infused: 700 Progress Note Anesthesia document: Postop Eval 1 completed: Yes 09/18/24 1547 Date Michael Holder FARMWORKER MACHINE Cosigner Signature: Date CC: Signed Normal [facility] MR/[id number] 09-18-2024 MR/POSTOPAN2 [facility] Medical Records Department [address] [place] [address] Anesthesia Postop Eval II 09/18/24 160 MR#: [id number] Acct: [id number] Name: AUDRA LINDSEY Rep #: [id number] : 1955 69 From: Hiren Olson MD PCP: Dr. Vinay Nettles MD Status:REG [facility] Y Race: C Location: [place] [address] Anesthesia Postop Eval I Sum Postop Eval Completion status Anesthesia document: Postop Eval 1 completed: Yes Anesthesia Postop Eval I Summary Anesthesia Postop Eval I Summary: Anesthesia Postop Eval I: Assessment Summary Airway patent Yes 09/18/24 15:47 [email or web address] Spontaneous unlabored Yes 09/18/24 15:47 [email or web address] [email or web address] respirations Mental status Awake,Calm 09/18/24 15:47 [email or web address] nausea No 09/18/24 15:47 [email or web address] Vomiting No 09/18/24 15:47 [email or web address] Anesthesia Postop Eval I: Fluid Summary Crystalloid volume administer 700 09/18/24 15:47 [email or web address] (ml) Colloids volume administered ( ml) Blood Product volume administered (ml) Total IV fluid infused 700 09/18/24 15:47 [email or web address] Anesthesia Postop Eval I: Summary Notes Anesthesia Complication No 09/18/24 15:47 [email or web address] Anesthesia Complication Comment: Post-operative progress note Anesthesia: Postop Eval II Evaluation Mental status: Awake Pain Level: 0 nausea: No Vomiting: No 09/18/241606 Date Hiren Keyes Signature: Date CC: Signed Normal [facility] Operative Reporton 5 Operative Report [facility] Medical Records Department [address] [place] [address] Operative Report 09/18/24 1033 MR#: [id number] Acct: [id number] Name: AUDRA LINDSEY Rep #: [id number] : 1955 69 From: Harshil Ledesma MD PCP: Dr. Vinay Nettles MD Status:[facility] Location: [place] [address] Operative Report (Standard) Operative Information Date of Procedure: 09/18/24 Pre-Operative Diagnosis: Left index finger extensor tendon laceration at the central slip causing Boutonniere deformity Post-Operative Diagnosis: Same Surgery/Procedure Performed: 1) Repair of left index finger central slip injury, CPT: 43713 button facing machine operator: Yes Lottery Manager: Jeanne Angel Tasks completed by first beater: Retracting Type of Anesthesia: MAC/Supplemental (10 cc of 50/50 mixture of 1% lidocaine and 0.25% Marcaine ) RN Documented Start/Stop Times: Operation Date: 09/18/24 14:10 Case Time Into Pre-Op 09/18/24 12:49 Out of Pre-Op 09/18/24 14:16 Anesthesia Start 09/18/24 14:21 Into Room 09/18/24 14:21 Procedure Start 09/18/24 14:47 Procedure End 09/18/24 15:35 Anesthesia End 09/18/24 15:41 Out of Room 09/18/24 15:41 Into Recovery 09/18/24 15:43 Out of Recovery 09/18/24 15:57 Into Phase II Recovery 09/18/24 15:58 Procedure Start Time: 14:47 Procedure Stop Time: 15:35 Select all DRAINS/GRAFTS/IMPLANTS that apply: Implanted device (Suture anchor) Implanted device details: Noelle corkscrew Arthrex 1.7 mm x 1.5 mm Estimated Blood Loss: minimal Specimen collected: No Description of surgery: Indications: Audra Lindsey is a delightful 69-year-old female who sustained a laceration to her left index finger dorsum lacerating her EDC tendon at/just proximal to the central slip insertion. She subsequently developed an acute boutonniere deformity. She presents today for repair. I discussed with her the risks, benefits, and alternatives to repair, and she elected to proceed. Procedure details: Patient was quickly identified in preoperative holding and taken back to the operative room where she was administered sedation and a local block. He was given time to take effect and she was prepped and draped in sterile fashion. A timeout was performed. Sutures were removed. Tourniquet on the arm was inflated to 250 mmHg after exsanguination. The horizontal laceration was extended into a proximal ulnar incision and a distal radial incision to make a Z-type incision for exposure of the underlying injury. The wound was irrigated with copious amounts of normal saline and Irrisept. The central slip was noted to be lacerated with minimal residual distal tendon stump (could not be repaired without a suture anchor or bone tunnel). Decision was therefore made to use a suture anchor with 3-0 FiberWire. Using the C arm as guidance, a suture anchor was drilled into the dorsal base of the middle phalanx with care taken to be outside the joint and within the footprint of the central slip. The suture tails were then used to suture the EDC central slip back into position over the cheesh-na footprint using a cruciate repair and a tie. 2 [id number] 3-0 FiberWire sutures were then placed on the sides of the repair to further reinforce the repair. Patient had excellent cascade with passive tenodesis normal appearing resting index finger (improvement as she was resting in a boutonniere deformity before the repair). The tourniquet was let down and hemostasis was obtained with bipolar electrocautery. The wounds were closed with interrupted horizontal mattress 4-0 nylon suture. A 0.035 K wire was used to stabilize the left index finger PIP joint in extension. Xeroform, Webril and a plaster splint were applied. Patient was awakened and taken the PACU in stable condition. She tolerated the procedure well. Postoperative plan: Follow-up in 1 week for wound check and splint change. Plan to pull K wire and begin hand therapy in 2 weeks. Surgical Findings: Lacerated central slip insertion with no distal central slip stump for repair over the footprint thus indicating use of a suture anchor. Complications Complications: No Admit VTE Documentation VTE Mechan Device Prophylaxis: SCD's 09/18/24 1610 Cosigner Signature (if applicable): CC: Dr. Vinay Nettles MD; Dr. Harshil Ledesma MD Signed Normal [facility] Plastic Surgery Visit Report on 09-16-2024 Pl[address] Surgery Visit Report [facility] [address], [address] [place] [address] OFFICE VISIT Date of Service: 09/16/24 MR#: [id number] Acct: [id number] Name: AUDRA LINDSEY Rep #: [id number] : 1955 Provider: Dr. Harshil Ledesma MD Age/Sex: 69/F Location: [facility] Status: Signed Intake Vital Signs 3 09/14/24 14:24 09/16/24 16:32 Height 5 ft 6 in 5 ft 5 in Weight: 160 lb BMI 26.6 BP 177/87 H Blood Pressure Location Rt brachial Position Sitting Respiration 18 Pulse 69 Temp 97.7 F L Temp Source Temporal Pulse Oximetry (%) 99 Oxygen Delivery Method room air Intake Visit Reasons: ED FOLLOW UP Chief Complaint: left index finger laceration ed follow up Accompanied by: Is patient in pain?: No Allergies clavulanic acid (From Augmentin) Adverse Reaction (Severe, Verified 09/16/24 16:33) Nausea Medications 3 ???Medication ???Instructions ???Recorded ???Confirmed ???Type aspirin 81 mg tablet,delayed 81 mg PO DAILY 05/20/19 07/23/20 H istory release famotidine 20 mg tablet 20 mg PO DAILY 07/23/20 07/23/20 H istory multivitamin 1 ea PO DAILY 07/23/20 07/23/20 Hi story alprazolam 0.5 mg tablet 0.5 mg PO DAILY PRN 06/15/2306/15 History ipratropium bromide 42 mcg (0.06 2 spray intranasal BID 06/15/23 History %) nasal spray cephalexin 500 mg capsule 500 mg PO Q6 #40 CAPSULES 09/14/24 09/16/24 Rx Patient : No Have you fallen in the past year?: No Nurse's Note: pt here for follow up ed. [facility] Medical History Breast cyst Arthritis Hypertension Abnormal mammogram of left breast Chronic neck and back pain Shoulder pain Surgical History History of hysterectomy History of colonoscopy History of spinal surgery Family History Son Asthma Mother Breast cancer Hypertension Grandmother Breast cancer Brother Cancer liver cancer Grandfather Cancer prostate cancer Uncle Cancer prostate cancer Social History Smoking Status: Former smoker how long ago did patient quit smoking: quit 2005 alcohol intake: never substance use type: does not use additional social history: pt denies vaping, denies edibles, denies marijuana use Denies family history of blood clots HPI ED FOLLOW UP Details: Audra Lindsey is a delightful 69-year-old female who is otherwise healthy and 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 The injury occurred on Monday, 15 September 2024, when she was sharpening a knife and accidentally cut herself. She went to the emergency department where she was washed out and closed and placed on antibiotics. She was referred to our clinic. Patient is not a smoker. No personal or family history of bleeding or clotting problems or problems with anesthesia. Caprini score is 4 Her tetanus is up-to-date from 2022 She has no prior history of hand trauma in this location. ROS General General: Yes good health; No fatigue, fever(s) or weight loss HENMT HENMT: No rhinitis, sore throat/mouth sore, nasal congestion, contacts or glaucoma Endo Endocrine: No thyroid disease, polydipsia, heat intolerance, cold intolerance, hepatitis or excessive urine Skin Skin: No Bleeding, bruising, changing moles or suspicious lesion Musc Musculoskeletal: No joint pain, joint stiffness, muscle weakness, back pain, osteoarthritis or Muscle aches/ myalgia Neuro Neurological: No headache(s), No lightheadedness and No numbness Cardio Cardiovascular: No chest pain, pacemaker, fatigue or shortness of breat with exertion Psych Psychiatric: No depression, claustrophobia or anxiety Resp Respiratory: No spitting up, shortness of breath, sleep apnea, asthma, emphysema, TB, Cough or Smoker Gastro Gastrointestinal: No diarrhea, constipation, blood in stool, nausea, vomiting or abdominal bloating Mehdi Hematologic: No anemia, No bleeding and No abnormal bleeding Genitourinary: No urinary frequency, blood in urine or incontinence Exam Details Left upper Extremity Inspection: Left index finger with 2.5 cm laceration just proximal to the PIP joint on the dorsum. She has an obvious boutonniere deformity. Palpation: No collateral ligament instability at the PIP joint of the left index finger. She has intact and normal passive range of motion of the index finger PIP joint limited only by pain. Motor: Able to bend and extend all MP, PIP, and DIP joints, except she is unable to extend the PIP joint of the left index finger. She has a positive E (more content not included)... Normal [facility] Emergency Department Summary on 09-14-2024 Emergency Department Summary [facility] Medical Records Department [address] [place] [address] Emergency Department Summary 09/14/24 MR#: [id number] Acct: [id number] Name: AUDRA LINDSEY Rep #: [id number] : 1955 69 From: Gutierrez Rodriguez DO PCP: Dr. Vinay Nettles MD Status:REG ER Location: ED HPI History of Present Illness HPI Narrative: Patient presents with laceration to her left index finger that occurred today. Patient states she was sharpening a knife when it accidentally slipped and cut her finger. Patient states the bleeding has been persistent. Patient describes her pain as throbbing. Patient states it is worse when she bends her finger. Patient states it is better with rest. Patient denies any paresthesias or weakness. Patient states her last tetanus was on 09/26/2022. Chief Complaint: Laceration Informant: patient Occured/Mechanism Comment: Accidentally cut with a knife Onset/Context/Timing Onset: Today Context: Sudden Onset Timing: Continuous Quality of Pain: Throbbing Location: Left index finger Worsened by: Flexion Relieved by: Rest Associated Symptoms Associated Symptoms: Negative for Parasthesia, Weakness or Loss of Funtion PFSH [facility] Medical History (Updated 09/14/24 @ 16:[address] Gutierrez Rodriguez, DO) Hypertension Abnormal mammogram of left breast Chronic neck and back pain Shoulder pain Home Medications ???Medication ???Instructions ???Recorded ???Last Taken ???Type aspirin 81 mg tablet,delayed 81 mg PO DAILY 05/20/19 05/19/19 H istory release famotidine 20 mg tablet 20 mg PO DAILY 07/23/20 Unknown Hi story multivitamin 1 ea PO DAILY 07/23/20 Unknown His tory alprazolam 0.5 mg tablet 0.5 mg PO DAILY PRN 06/15/23 Unkno wn History ipratropium bromide 42 mcg (0.06 2 spray intranasal BID 06/15/23 Un known History %) nasal spray cephalexin 500 mg capsule 500 mg PO Q6 #40 CAPSULES 09/14/24 Unknown Rx Allergy/AdvReac Type Severity Reaction Status Date / Time clavulanic acid (From AdvReac Severe Nausea Verified 09/14/24 14:24 Augmentin) Family History Son Asthma Mother Breast cancer Hypertension Grandmother Breast cancer Brother Cancer liver cancer Grandfather Cancer prostate cancer Uncle Cancer prostate cancer Surgical History History of hysterectomy History of colonoscopy History of spinal surgery Social History Smoking Status: Former smoker alcohol intake: never substance use type: does not use ROS ROS ED Constitutional Constitutional ED: Denies chills or fever(s) Eyes Eyes: Denies blurry vision or change in vision ENT ENT ED: Denies rhinorrhea or sore throat Cardiovascular Cardiovascular: Denies chest pain or palpitations Respiratory/Chest Respiratory/Chest: Denies cough or dyspnea Gastrointestinal Gastrointestinal: Denies nausea or vomiting Genitourinary Genitourinary ED: Denies dysuria or hematuria Musculoskeletal Musculoskeletal: Denies back pain or neck pain Integumentary Denies abscess or rash Neurologic Neurologic: Denies headache(s) or weakness Allergic/Immunologic Allergic/Immunologic ED: Denies mouth swelling or urticaria EXAM Physical Exam Const Vital Signs: 09/14/24 14:24 Temperature 98.1 F Temperature Source Oral Pulse Rate 77 Respiratory Rate 19 H Blood Pressure 135/65 H Blood Pressure Mean 88 Pulse Ox 98 Oxygen Delivery Method Room Air Positive well nourished and well developed General Appearance ED: well developed and NAD HEENT Reports moist mucous membranes Neck full ROM and supple Extremity Extremity Narrative: There is a 1.5 cm curvilinear laceration of the dorsal aspect of the left index finger. There is moderate bleeding noted. There is mild gapping of the wound margins. Sensation was intact to light touch in all digits. Capillary refill was less than 2 seconds in all digits. Patient was unable to extend the PIP and DIP joints against resistance. Patient had good flexion of the PIP and DIP joints. Neuro oriented x3, CN's II-XII intact bilaterally, moves all extremities, no focal motor deficits and no sensory deficits noted Sensorium / Orientation: alert Motor Exam: strength 5/5 throughout Psych mental status grossly normal Skin Trauma: laceration linear, actively bleeding, involves subcutaneous tissue, motor nerve function intact and sensation intact MDM MDM MDM Narrative Medical decision making narrative: Differential diagnosis includes skin laceration, tendon laceration, open fracture, and contusion. X-rays of the left index finger will be obtained to assess for fracture and foreign body. Radiography Diagnos (more content not included)... Normal [facility] Finger(s) Min 2 Viewson - Finger(s) Min [address] [facility] Imaging Services [address] [place] [address] Finger(s) Min 2 Views MR#: [id number] Acct: [id number] Name: AUDRA LINDSEY Rep #: [id number] : 1955 F 69 From: Janet Aquino nd, MD PCP: Dr. Vinay Nettles MD Status: REG ER Study: Finger(s) Min 2 Views Date of Exam: 09/14/24 Exam# [id number] Ordering Dr: Gutierrez Rodriguez DO PROCEDURE: FINGER(S) MIN 2 VIEWS 09/14/2024 REASON FOR EXAM: INJURY/PAIN TECHNIQUE: 3 view(s) of the left 2nd finger COMPARISON: None. FINDINGS: Bones: No acute osseous fracture. No aggressive osseous lesions. Joints: Normal alignment. Joint spaces preserved. No arthropathic features. Soft tissues: No soft tissue gas. No radiopaque foreign body. RAD/Finger(s) Min 2 Views IMPRESSION: NEGATIVE FINGER SERIES Reading Location: [facility] CC: Dr. Vinay Nettles MD; Dr. Gutierrez Rodriguez DO Craniologist: Signed Normal [facility] SCRN MAMM (CAD)W/MARY ANN BILATo n 05-27-2024 SCRN MAMM (CAD)W/MARY ANN BILAT [facility] Imaging Services [address] [place] [address] SCRN MAMM (CAD)W/MARY ANN BILAT MR#: [id number] Acct: [id number] Name: AUDRA LINDSEY Rep #: [id number] : 1955 F 68 From: Joe Louis MD PCP: Dr. Vinay Nettles MD Status: REG CLI Study: SCRN MAMM (CAD)W/MARY ANN BILAT Date of Exam: 04/30 Exam# [id number] Ordering Dr: Vinay Nettles [id number] MAMMOGRAPHY - BILATERAL SCREENING 3-D TOMOSYNTHESIS REASON FOR EXAM: Female, 68 years old. SCREENING PERTINENT HISTORY: No significant family history. TECHNIQUE: 2-D mammograms and 3-D Tomosynthesis of the breast (s) were performed. CAD was performed. COMPARISON: 05/17/2023 FINDINGS: The breast composition is heterogeneously dense that can obscure small breast masses. Scattered benign calcifications are seen. No dense spiculated masses or suspicious microcalcifications are identified. No architectural distortion is identified. There is no skin thickening or retraction. There has been no significant change since the prior study. BI/SCRN MAMM (CAD)W/MARY ANN BILAT IMPRESSION: No mammographic signs of malignancy. Routine yearly mammograms recommended. ASSESSMENT CATEGORY: BIRADS Category 1: Negative. A letter regarding these results will be sent to the patient by the facility within 30 days. FOLLOW UP RECOMMENDATION: Yearly follow up mammogram recommended. (A) Approximately 10% of breast cancers are not detected by mammography. A normal mammogram should not delay biopsy of a clinically suspicious abnormality. Electronically Signed: Joe Louis MD at 20:43 EST , CC: Dr. Vinay Nettles MD Craniologist: Signed Normal [facility] Office Visiton 07-31-2023 Follow-up visit [id number] Josi Lindsey 1955 F Date Provider Department Center 07/31/2023 [id number] [employer] None Family History Problem Relation Age of Onset Diabetes Mother Breast cancer Mother Uterine cancer Mother Breast cancer Maternal Grandmother Diabetes Maternal Grandmother Colon cancer Neg Hx Ovarian cancer Neg Hx Family Status - Relation Status Age at Mother Maternal Grandmother Neg Hx Level of Service:55757 DC POSTOP FOLLOW UP VISIT RELATED TO ORIGINAL PX Reason for Visit and Comments: Post-op Visit [559] - 3 weeks No complaints Normal [facility] Progress Noteon 07-31-2023 Progress Note Chief Complaint Patient presents with Post-op Visit 3 weeks No complaints History of the Present Illness: Audra Lindsey is a 68 y.o. who presents to the office for post-operative evaluation. She underwent ROBOTIC TRACHELECTOMY AND OOPHORECTOMY, on 07/11/23 and final pathology showed: Final Diagnosis A. CERVIX, LEFT TUBE AND OVARY, TRACHELECTOMY AND LEFT SALPINGO-OOPHORECTOMY: - BENIGN CERVIX WITH NABOTHIAN CYSTS, TUNNEL CLUSTERS AND STROMAL SMOOTH MUSCLE PROLIFERATION. - BENIGN FALLOPIAN TUBE AND OVARY. Interval History: Since her surgery she has been doing well and is without complaints. She denies fevers, chills, nausea, vomiting, bowel or bladder dysfunction. Pain is well controlled. No drainage from incisions. No abnormal vaginal bleeding or discharge. Doing well. Having hot flashes- going to see her pcp who was ordering her hormones. Past Medical History: Diagnosis Date GERD (gastroesophageal reflux disease) Past Surgical History: Procedure Laterality Date BREAST BIOPSY CERVICAL FUSION FOOT SURGERY crooked toe OTHER SURGICAL HISTORY 2007 BX BREAST PERC VACUUM/ROTN x2 TOTAL ABDOMINAL HYSTERECTOMY 1992 w/wo rmvl tube ovary @[email or web address]@ Allergies Allergen Reactions Augmentin [Amoxicillin-Pot Clavulanate] Review of Systems: As per the HPI, otherwise negative Vitals: 07/31/23 1139 BP: (!) 154/94 Pulse: 76 Body mass index is 26.79 kg/m?. Physical Exam Constitutional: Appearance: Normal appearance. Pulmonary: Effort: Pulmonary effort is normal. Abdominal: General: Abdomen is flat. Palpations: Abdomen is soft. Comments: Well-healing laparoscopic incision's, without erythema, warmth, induration, or discharge. Neurological: General: No focal deficit present. Mental Status: She is alert and oriented to person, place, and time. Psychiatric: Mood and Affect: Mood normal. Behavior: Behavior normal. Assessment/Plan: 68 y.o. s/p ROBOTIC TRACHELECTOMY AND OOPHORECTOMY, for Intra-abdominal and pelvic swelling, mass and lump, unspecified site, Postmenopausal bleeding. Doing well from a post-operative standpoint. Post-operative instructions reviewed. Patient was given a copy of the pathology report for her records. The patient had an opportunity to ask questions, all of which were answered to the best of my ability. She is in agreement with the above noted plan. Follow up with primary [employer] B[employer]ER for annual well woman exams [facility] 36on 07-14-[address] Nettles at [phone] via machine. Confirmation scanned within media [facility] 36 ----- Message from Red Valdez MD sent at 07/13/2023 2:57 PM EST ----- Plz fax to justin Alcantar ----- Message ----- From: [employer] UserElsy Sent: 07/13/2023 10:23 AM EST To: Red Valdez MD [facility] 36on 07-13-2023 36 Called patient with benign pathology results. Patient states she is doing well and reinforced her upcoming postoperative appointment. Patient verbalizes understanding [facility] [id number] 07-11-2023 [id number] Patient ambulated to the bathroom and void x1 [facility] ABO and Rh group Confirm Nom (Bld)on 07-11-2023 ABO group Nom (Bld) AB [facility] D Ag Ql (RBC) Positive [facility] BLOOD TYPE AND SCREEN GELon 07-11-2023 ABO GROUPING AB Normal [facility] Comment on above: Order Comment: HOLD. Specimen is valid for 3 days - nurse to verify valid specimen Performed By: #### L [id number] ####Drafter (Cad) Electronic: RUDDY MCCABE ([id number])[facility] ([facility])[address] [place] [address] RH TYPE IN BLOOD Positive Normal [facility] Comment on above: Order Comment: HOLD. Specimen is valid for 3 days - nurse to verify valid specimen Performed By: #### L [id number] ####Drafter (Cad) Electronic: RUDDY MCCABE ([id number])[facility] ([facility])[address] [place] [address] Blood type and Crossmatch pa elver (Bld)on 07-11-2023 ABO group Nom (Bld) AB [facility] Blood group antibody screen GEL Ql Negative [facility] D Ag Ql (RBC) Positive [facility] CBC (HEMOGRAM)on 07-11-2023 Erythrocyte distribution width (RBC) [Ratio] 14.2 % Normal 11.5-14.5 [facility] Comment on above: Performed By: #### L [id number] #### Drafter (Cad) Electronic: RUDDY MCCABE ([id number]) [facility] ([facility]) [address] [place] [address] ERYTHROCYTE MEAN CORPUSCULAR HEMOGLOBIN CONCENTRATION (G/DL) BY AUTOMATED 33.3 % Normal 32.0-36.0 [facility] Comment on above: Performed By: #### L [id number] #### Drafter (Cad) Electronic: RUDDY MCCABE ([id number]) [facility] ([facility]) [address] [place] [address] Hematocrit (Bld) [Volume fraction] 39.8 % Normal 35.0-47.0 [facility] Comment on above: Performed By: #### L [id number] #### Drafter (Cad) Electronic: RUDDY MCCABE ([id number]) [facility] ([facility]) [address] [place] [address] Hemoglobin (Bld) [Mass/Vol] 13.2 g/dL Normal 11.7-16.0 [facility] Comment on above: Performed By: #### L [id number] #### Drafter (Cad) Electronic: RUDDY MCCABE ([id number]) [facility] ([facility]) [address] [place] [address] MCH (RBC) [Entitic mass] 29.6 pg Normal 26.0-34.0 [facility] Comment on above: Performed By: #### L [id number] #### Drafter (Cad) Electronic: RUDDY MCCABE ([id number]) [facility] ([facility]) [address] [place] [address] MCV (RBC) [Entitic vol] 88.9 fL Normal 80.0-98.0 [facility] Comment on above: Performed By: #### L [id number] #### Drafter (Cad) Electronic: RUDDY MCCABE ([id number]) [facility] ([facility]) [address] [place] [address] Platelet mean volume (Bld) [Entitic vol] 8.1 fL Normal 7.4-12.4 [facility] Comment on above: Performed By: #### L [id number] #### Drafter (Cad) Electronic: RUDDY MCCABE ([id number]) [facility] ([facility]) [address] [place] [address] Platelets (Bld) [#/Vol] 380 10*3/uL Normal 140-440 [facility] Comment on above: Performed By: #### L [id number] #### Drafter (Cad) Electronic: RUDDY MCCABE ([id number]) [facility] ([facility]) [address] [place] [address] RBC (Bld) [#/Vol] 4.48 10*6/uL Normal 3.8-5.20 [facility] Comment on above: Performed By: #### L [id number] #### Drafter (Cad) Electronic: RUDDY MCCABE ([id number]) [facility] ([facility]) [address] [place] [address] WBC (Bld) [#/Vol] 7.0 10*3/uL Normal 3.6-10.7 [facility] Comment on above: Performed By: #### L [id number] #### Drafter (Cad) Electronic: RUDDY MCCABE ([id number]) [facility] ([facility]) [address] [place] [address] CBC panel Auto (Bld)on 07-11 Erythrocyte distribution width (RBC) [Ratio] 14.2 % 11.5 - 14.5 % [facility] Hematocrit (Bld) [Volume fraction] 39.8 % 35.0 - 47.0 % [facility] Hemoglobin (Bld) [Mass/Vol] 13.2 g/dL 11.7 - 16.0 g/dL [facility] Interpretation and review of laboratory results Normal [facility] MCH (RBC) [Entitic mass] 29.6 pg 26.0 - 34.0 pg [facility] MCHC (RBC) [Mass/Vol] 33.3 % 32.0 - 36.0 % [facility] MCV (RBC) [Entitic vol] 88.9 fL 80.0 - 98.0 fL [facility] Platelet mean volume (Bld) [Entitic vol] 8.1 fL 7.4 - 12.4 fL [facility] Platelets (Bld) [#/Vol] 380 10*3/uL 140 - 440 10*3/uL [facility] RBC (Bld) [#/Vol] 4.48 10*6/uL 3.8 - 5.20 10*6/uL [facility] WBC (Bld) [#/Vol] 7.0 10*3/uL 3.6 - 10.7 10*3/uL [facility] Nursing Noteon 07-11-2023 Nursing Note When attempting to g et patient up, began shaking again. Lucy Wiseman CRNA notified and order for demerol received. Normal [facility] Nursing Note Patient has not had further shivering. Doing well. Normal [facility] Nursing Note Patients son to bedside to visit. Normal [facility] Nursing Note Lucy Wiseman CRNA anders d to bedside to see patient. Patient started shaking after being her over an hour. Warm blankets applied and will monitor. Normal [facility] Nursing Note Patient's called to bedside. Normal [facility] Nursing Note ORAL AIRWAY D/C'D. Normal [facility] Nursing Note Received from OR wit h oral airway in place. Vitals stable. Normal [facility] Op Noteon 07-11-2023 Op Note Date of surgery July 11, 2023 Preoperative diagnosis cervical mass, postmenopausal bleeding, retained ovary Postop diagnosis same Procedure abdominal trachelectomy, laparoscopic oophorectomy, left side Surgeon José Miguel anesthesia General Description of findings; the cervix was grossly normal. There was a loop of small and large bowel that was adherent to the top of the cervix into abdominally which may accounted for the abnormal MRI findings. The cervix was removed intact, was opened off the field and had no evidence of malignancy. The right ovary was surgically absent. Description of operation patient identified brought to the operating room and after ministration of general anesthetic underwent abdominal perineal vaginal prep and drape in the lithotomy position using the yellowfin's. A Kimble cath was placed in the bladder sponge stick in the vagina. Using a knife a small incision was made in the left upper quadrant using the 5 mm Optiview blunt port the abdominal cavity was entered under direct vision insufflated with CO2 and then under direct vision da John ports were placed under direct vision. Trendelenburg was then used to get the bowel out of the pelvis and the da John was docked. The left pelvic sidewall was opened the left ureter identified the left ovarian vessels were skeletonized above the ureter coagulated bipolar cautery and divided. The ovary and tube was then removed off the left pelvic sidewall using Bovie dissection. Attention was then turned to the cervix. The anterior peritoneum was incised, the vesicovaginal space was opened and the bladder was dissected inferiorly. The uterosacral ligaments were identified. The ovarian vessels were skeletonized coagulated with bipolar cautery and divided. The upper cardinal ligaments were then gently coagulated, colpotomy incision was then made on top of the sponge stick in the cervix was removed in its entirety through the vagina as well as the left tube and ovary. The cuff is then closed using a running 0 V-Loc suture and the pelvis was irrigated hemostasis noted all instruments removed the abdominal cavity the da John undocked and trocars removed the Kimble was removed with 200 cc of clear urine and she was taken to the cover room in stable condition by anesthesia. Blood loss was minimal. The ports were removed and the defects and skin were closed with subcuticular 4-0 Monocryl and Dermabond. [facility] Op Note Date: 07/11/2023 Location: [facility] OR Name: Audra Lindsey, : 1955, Diagnosis Pre-op Diagnosis * Intra-abdominal and pelvic swelling, mass and lump, unspecified site [R19.00] * Postmenopausal bleeding [N95.0] Post-op Diagnosis * Intra-abdominal and pelvic swelling, mass and lump, unspecified site [R19.00] * Postmenopausal bleeding [N95.0] Procedures ROBOTIC TRACHELECTOMY AND OOPHORECTOMY, POSSIBLE BILATERAL PELVIC SENTINEL LYMPH NODE BIOPSY WITH INDOCYANINE GREEN PROTOCOL 60845 - DC TRACHELECTOMY CERVICECTOMY AMP CERVIX SPX ROBOTIC (XI) LAPAROSCOPY OOPHORECTOMY 77628 - DC LAPAROSCOPY W/RMVL ADNEXAL STRUCTURES LYMPHANGIOGRAPHY RADIOACTIVE TRACER FOR IDENTIFICATION SENTINEL NODE 15822 - DC INJ RADIOACTIVE TRACER FOR ID OF SENTINEL NODE Surgeons * Red Valdez - Primary Procedure Summary Anesthesia: General ASA: III Estimated Blood Loss: Minimal Drains: Urethral Catheter 16 Fr. (Active) Specimens ID Source Type Tests Collected By Collected At Frozen? Priority Lab ID 1 Cervix Tissue TISSUE EXAM Red Valdez MD 07/11/23 0859 Description: CERVIX, LEFT TUBE AND OVARY Staff: Connie Scratcher: Jackie Murray RN Scrub Person: Bertin Chou Findings: benign findings Complications: None; patient tolerated the procedure well. Specimens Collected: Order Name Source Comment Collection Info Order Time POTASSIUM WITH MG REFLEX For patients on dialysis to draw potassium day of surgery 07/11/2023 7:08 AM PROTHROMBIN TIME If patient on coumadin within 4 days prior. 07/11/2023 7:08 AM CBC (HEMOGRAM) Blood, Venous Collected By: Betsy Castrejon RN 07/11/2023 7:08 AM BLOOD TYPE AND SCREEN GEL Blood, Venous HOLD. Specimen is valid for 3 days - nurse to verify valid specimen Collected By: Betsy Castrejon RN 07/11/2023 7:08 AM HCG QUALITATIVE URINE Urine, Clean Catch Discontinue this order if: 1. patient is older than 55 years old 2. has had a prior hysterectomy 3. today's surgery is for treatment of known or suspected ectopic or loss. 4. patient has a known intrauterine but this is a needed surgery. 07/11/2023 7:08 AM TISSUE EXAM Cervix Pre-op diagnosis: Intra-abdominal and pelvic swelling, mass and lump, unspecified site [R19.00] Postmenopausal bleeding [N95.0] Collected By: Red Valdez MD 07/11/2023 9:00 AM Wound Class: Class II: Clean-Contaminated Blood Products: None Prophylactic Antibiotics: Procedure appropriate prophylactic antibiotic(s) given within 1 hour of surgical incision (two hours if receiving Vancomycin or flouroquinolone) [facility] PREPROCINSon 07-04-2023 PREPROCINS Medication List Accurate as of July 04, 2023 9:12 AM. Always use your most recent med list. FAMOTIDINE PO Medication Adjustments for Surgery: Take night before surgery ipratropium 0.06 % nasal spray Commonly known as: Atrovent Medication Adjustments for Surgery: Take morning of surgery multivitamin tablet Medication Adjustments for Surgery: Stop 1 day before surgery ROUSTABOUT CREW LEADER AND PARKING IN THE MAIN DECK ARE FREE DAY OF SURGERY. PARKING IN THE DECK-- AFTER PARKING TAKE THE ELEVATOR TO LEVEL ONE AND TAKE THE BRIDGE TO THE HOSPITAL. GO TO THE RIGHT AND GO AROUND THE CORNER TO THE SAME DAY SURGERY DESK AND CHECK IN THERE. IF GOING IN THE MAIN ENTRANCE-- TURN LEFT AND GO DOWN THE RAZO TO THE H ELEVATORS AND TAKE THEM TO ONE, LEFT OFF THE ELEVATOR AND GO AROUND TO THE SAME DAY DESK AND CHECK IN. Nothing to eat after midnight. You may have clear liquids up until 2 hours before surgery. Which consists of water, apple or cranberry juice, black coffee or tea (no cream ,milk or dairy products). You may have soda , gatorade or powerade and flavored water. Additional Instructions: You may take your prescription pain medication. You may take Tylenol for pain. NO Motrin, ibuprofen or Advil for 24 hours prior to surgery or longer if instructed by your surgeon. NO Aleve or Naprosyn for 5 days prior to surgery or longer if instructed by your surgeon. DO NOT take aspirin or aspirin containing products for 5 days before surgery, or longer if instructed by your surgeon. Follow any instructions given to you by Dr. Valdez Follow the instruction for the CHG shower kit you were provided in pre-admission testing. No makeup, lotion, powder, deodorant or body spays. No hair products. Remove all jewelry and leave it at home. Wear loose comfortable clothing to go home in. You may brush your teeth morning of surgery. Do not wear contacts day of surgery. No marijuana (THC), smoking or alcohol for 24 hours prior to surgery. Please arrange for a responsible adult to drive you home after your surgery and that there is a responsible adult with you for 24 hours post discharge. If you have specific questions, please call your surgeon. You will receive a call the day before your surgery to verify your arrival time and date. You will be asked to arrive at least two hours prior to your scheduled surgery time. Please bring your [facility] Surgical folder and medication list with you day of surgery. We encourage you to write down any questions you may have for the surgeon, anesthesiologist, or other members of the surgical team and bring it with you the day of surgery. Please bring photo ID and insurance information. [facility] 36on 06-23-2023 36 Patient calling pre testing to r/s PAT [facility] 36 Patient mentioned th at jul 04 for her PAT call will not work. Patient wants to know if there is an earlier time on Jul 04. Patient would like a call back. [facility] 36on 06-20-2023 36 PAT: 07.04.2023 at 9 am SX: 07.11.2023 at 9 am arrival at 7 am Post op 07.31.2023 at 11:30 am Folder and instructions given. [facility] Office Visiton 06-19-2023 Follow-up visit [id number] Josi Lindsey 1955 F Date Provider Department Center 06/19/2023 [id number] VALDEZ [facility] [employer]ANCH BANKER None Family History Problem Relation Age of Onset Diabetes Mother Breast cancer Mother Uterine cancer Mother Breast cancer Maternal Grandmother Diabetes Maternal Grandmother Colon cancer Neg Hx Ovarian cancer Neg Hx Family Status - Relation Status Age at Mother Maternal Grandmother Neg Hx Level of Service:51935 DC OFFICE/OUTPATIENT NEW LOW MDM 30 MINUTES Reason for Visit and Comments: Female Problem [263] Normal [facility] Cervical or vagninal specime n microscopic examination by cytology stain (reported asOrdered By: Lindsay Navarro on 04-10-2023 Cytology report Cyto stain Doc (Cvx/Vag) Comment . [facility] Comment on above: The Pap smear is a s creening test designed to aid in thedetection of premalignant and malignant conditions of theuterine cervix. It is not a diagnostic procedure andshould not be used as the sole means of detecting cervicalcancer. Both false-positive and false-negative reports dooccur. Detection in cervical specim en of any of human papilloma virus (HPV) 16, 18, 31, 33,Ordered By: Lindsay Navarro on 04-10-2023 HPV 16+18+31+33+35+39+45+5 1+52+56+58+59+66+68 DNA Probe+sig amp Ql (Cvx) Negative Negative [facility] Comment on above: This nucleic acid am plification test detects fourteen high- risk HPV types (16,18,31,33,35,39,45,51,52,56,58,59,66,68)without differentiation.Performed at: - [facility] [id number] Director: Samina Barry MD, Phone: [phone] at: =[facility] [address] [id number] Director: Samina Barry MD, Phone: [phone] Laboratory - CytologyOrdered By: Lindsay Navarro on 04-10-2023 [employer] Cyto stain Nom (Cvx/Vag) [ID] Comment . [facility] Comment on above: Karolyn Amador ytotechnologist (ASCP) Laboratory - Miscellaneous t estsOrdered By: Lindsay Navarro on 04-10-2023 Service comment (Unsp spec) [Interp] Comment . [facility] Comment on above: This liquid based Th inPrep(R) pap test was screened withthe use of an image guided system. Service comment (Unsp spec) [Interp] . . [facility] No Panel InformationOrdered By: Lindsay Navarro on 04-10-2023 Pathology report final diagnosis Narrative Comment . [facility] Comment on above: NEGATIVE FOR INTRAEP ITHELIAL LESION OR MALIGNANCY.CELLULAR CHANGES ASSOCIATED WITH INFLAMMATION ARE PRESENT. Laboratory - Chemistry and C hemistry - challengeOrdered By: Jose Carlos Nettles on 03-30-2023 Free T4 [Mass/Vol] 0.84 ng/dL 0.76-1.46 [facility] No Panel InformationOrdered By: Jose Carlos Nettles on 03-30-2023 Thyroid Stimulating Hormone (TSH) 3.69 uIU/mL 0.358-3.74 [facility] Basophil percentageOrdered B y: Dr. Nettles on 10-14-2022 Chloride [Moles/Vol] 105 mmol/L 98-107 [facility] Cholesterol [Mass/Vol] 233 mg/dL <200 [facility] Comment on above: <200 mg/dL Desirable 200-240 mg/dL Borderline >240 mg/dL High Risk Glucose [Mass/Vol] 106 mg/dL 74-106 [facility] Comment on above: Fasting Glucose resu lt from 100 to 125 mg/dL suggests IMPAIRED HOMEOSTASIS per A.D.A. criteria. Potassium [Moles/Vol] 3.9 mmol/L 3.5-5.1 [facility] Sodium [Moles/Vol] 138 mmol/L 136-145 [facility] Triglyceride [Mass/Vol] 138 mg/dL <199 [facility] Comment on above: The drugs N-Acetylcy steine and Metamizole may falsely depress this assay.Serum Triglycerides Reference Interval Normal <150 mg/dL Borderline high 150 - 199 mg/dL High 200 - 499 mg/dL Very High > or = 500 mg/dL Laboratory - Chemistry and C hemistry - challengeOrdered By: Dr. Nettles on 10-14-2022 CO2 [Moles/Vol] 28.0 mmol/L 21.0-32.0 [facility] Urea nitrogen/Creatinine [Mass ratio] 30.9 mg/mg 10- [facility] Free T4 [Mass/Vol] 0.80 ng/dL 0.76-1.46 [facility] No Panel InformationOrdered By: Dr. Nettles on 10-14-2022 Estimated GFR (MDRD) Amer 118 mL/min >60 [facility] Comment on above: GFR Calc Estimated GFR (MDRD) Non-Af Amer 98 mL/min >60 [facility] Comment on above: Non- GFR Calc Hepatitis C Antibody Non-Reactive Nonreactive [facility] Comment on above: Non Reactive: < 0.8 Equivocal: >/= 0.8 to < 1.0 Reactive: >/= 1.0The CDC recommends that a reactive/equivocal HCV antibody result be followed up by the HCV Nucleic Acid Amplificationtest (721980) Thyroid Stimulating Hormone (TSH) 4.66 uIU/mL 0.358-3.74 [facility] Vitamin D 25-Hydroxy 33.8 ng/mL [facility] Comment on above: Vitamin D 25(OH) Sta tus Range Deficiency <20 ng/mL (50nmol/L) Insufficiency 20 - 30 ng/mL (50 - 75 nmol/L) Sufficiency 30 - 100 ng/mL (75 - 250 nmol/L) Toxicity >100 ng/mL (>250 nmol/L) Serum Varicella zoster virus IgG antibody assay by immunoassay (units/volume)Ordered By: Dr. Nettles on 10-14-2022 VZV IgG IA Qn (S) 1376 index Immune >165 [facility] Comment on above: Negative <135 Equivo merrill 135 - 165 Positive >165A positive result generally indicates exposure to thepathogen or administration of specific immunoglobulins,but it is not indication of active infection or stageof disease.Performed at: [facility] [id number] Director: Chava Gonzalez PhD, Phone: [phone] Serum or plasma calcium franky urement (mass/volume)Ordered By: Dr. Nettles on 10-14-2022 Calcium [Mass/Vol] 9.2 mg/dL 8.5-10.1 [facility] Serum or plasma cholesterol in HDL measurement (mass/volume)Ordered By: Dr. Nettles on 10-14-2022 Cholesterol in HDL [Mass/Vol] 80 mg/dL >40 [facility] Comment on above: The drugs N-Acetylcy steine and Metamizole may falsely depress this assay. Reference Range HDL <40 mg/dL Low HDL Cholesterol HDL >or= 60 mg/dL High HDL Cholesterol Serum or plasma cholesterol in VLDL measurement (mass/volume)Ordered By: Dr. Nettles on 10-14-2022 Cholesterol in VLDL [Mass/Vol] 28 mg/dL 5-40 [facility] Serum or plasma creatinine m easurement (mass/volume)Ordered By: Dr. Nettles on 10-14-2022 Creatinine [Mass/Vol] 0.65 mg/dL 0.55-1.02 [facility] Comment on above: The validity of the calculated GFR & GFRAA in patients over 70 years has not been determined. Clinical correlation is essential. Serum or plasma low density lipoprotein (LDL) cholesterol measurement (mass/volume)Ordered By: Dr. Nettles on 10-14-2022 Cholesterol in LDL [Mass/Vol] 125 mg/dL 0-130 [facility] Serum or plasma urea nitroge n measurement (mass/volume)Ordered By: Dr. Nettles on 10-14-2022 Urea nitrogen [Mass/Vol] 20 mg/dL 7-18 [facility] Thin prep Papanicolaou smear with manual screeningOrdered By: Dr. Nettles on 10-14-2022 Thin prep Papanicolaou smear with manual screening 5 5-15 [facility] Vital Signs Date Time Vital Sign Value Performing Clinician Faci lity 12-20-2024 13:56-0400 Body height 165.[address] Vinay Nettles MD Work Phone: [facility] 12-20-2024 13:56-0400 Body temperature 97.8 [degF] Dr. Vinay Nettles MD Work Phone: [facility] 12-20-2024 13:56-0400 Diastolic blood pressure 82 mm[Hg] Dr. Vinay Nettles MD Work Phone: [facility] 12-20-2024 13:56-0400 Heart rate 81 /min Dr. Vinay Nettles MD Work Phone: [facility] 12-20-2024 13:56-0400 Respiratory rate 18 /min Dr. Vinay Nettles MD Work Phone: [facility] 12-20-2024 13:56-0400 SaO2% (BldA) [Mass fraction] 96 % Dr. Vinay Nettles MD Work Phone: [facility] 12-20-2024 13:56-0400 Systolic blood pressure 160 mm[Hg] Dr. Vinay Nettles MD Work Phone: [facility] 11-11-2024 15:36-0400 Body height 165.[address] Vinay Nettles MD Work Phone: 3(320)834-164118 [place] [address] 11-11-2024 15:36-0400 Body temperature 99.1 [degF] Dr. Vinay Nettles MD Work Phone: 2(676)760-659918 [place] [address] 11-11-2024 15:36-0400 Diastolic blood pressure 81 mm[Hg] Dr. Vinay Nettles MD Work Phone: 6(910)552-084937 [address] 11-11-2024 15:36-0400 Heart rate 76 /min Dr. Vinay Nettles MD Work Phone: 5(147)009-956818 [place] [address] 11-11-2024 15:36-0400 Respiratory rate 18 /min Dr. Vinay Nettles MD Work Phone: 4(920)141-349637 [address] 11-11-2024 15:36-0400 SaO2% (BldA) [Mass fraction] 98 % Dr. Vinay Nettles MD Work Phone: 1(843)817-917118 [place] [address] 11-11-2024 15:36-0400 Systolic blood pressure 154 mm[Hg] Dr. Vinay Nettles MD Work Phone: [facility] 09-26-2024 11:27-0400 Body height 165.[address] Vinay Nettles MD Work Phone: 3(548)315-810118 [place] [address] 09-26-2024 11:27-0400 Body temperature 98.3 [degF] Dr. Vinay Nettles MD Work Phone: 4(627)507-836318 [place] [address] 09-26-2024 11:27-0400 Diastolic blood pressure 83 mm[Hg] Dr. Vinay Nettles MD Work Phone: 8(612)453-733618 [place] [address] 09-26-2024 11:27-0400 Heart rate 78 /min Dr. Vinay Nettles MD Work Phone: [facility] 09-26-2024 11:27-0400 Respiratory rate 18 /min Dr. Vinay Nettles MD Work Phone: [facility] 09-26-2024 11:27-0400 SaO2% (BldA) [Mass fraction] 98 % Dr. Vinay Nettles MD Work Phone: [facility] 09-26-2024 11:27-0400 Systolic blood pressure 154 mm[Hg] Dr. Vinay Nettles MD Work Phone: 2(213)882-700418 [place] [address] 09-18-2024 15:55-0400 Body temperature 96.3 [degF] Dr. Vinay Nettles MD Work Phone: 1(504)489-037418 [place] [address] 09-18-2024 15:55-0400 Diastolic blood pressure 65 mm[Hg] Dr. Vinay Nettles MD Work Phone: [facility] 09-18-2024 15:55-0400 Heart rate 74 /min Dr. Vinay Nettles MD Work Phone: [facility] 09-18-2024 15:55-0400 Respiratory rate 16 /min Dr. Vinay Nettles MD Work Phone: [facility] 09-18-2024 15:55-0400 SaO2% (BldA) [Mass fraction] 97 % Dr. Vinay Nettles MD Work Phone: [facility] 09-18-2024 15:55-0400 Systolic blood pressure 145 mm[Hg] Dr. Vinay Nettles MD Work Phone: [facility] 09-18-2024 13:03-0400 Body mass index (BMI) [Ratio] 25.9 kg/m2 Dr. Vinay Nettles MD Work Phone: [facility] 09-18-2024 13:03-0400 Body weight 70.[address] Vinay Nettles MD Work Phone: [facility] 09-16-2024 16:32-0400 Body mass index (BMI) [Ratio] 26.6 kg/m2 Dr. Vinay Nettles MD Work Phone: [facility] 09-16-2024 16:32-0400 Body temperature 97.7 [degF] Dr. Vinay Nettles MD Work Phone: [facility] 09-16-2024 16:32-0400 Body weight 72.[address] Vinay Nettles MD Work Phone: [facility] 09-16-2024 16:32-0400 Diastolic blood pressure 87 mm[Hg] Dr. Vinay Nettles MD Work Phone: 0(089)857-605618 [place] [address] 09-16-2024 16:32-0400 Heart rate 69 /min Dr. Vinay Nettles MD Work Phone: 9(215)278-363118 [place] [address] 09-16-2024 16:32-0400 Respiratory rate 18 /min Dr. Vinay Nettles MD Work Phone: 1(059)878-572218 [place] [address] 09-16-2024 16:32-0400 SaO2% (BldA) [Mass fraction] 99 % Dr. Vinay Nettles MD Work Phone: [facility] 09-16-2024 16:32-0400 Systolic blood pressure 177 mm[Hg] Dr. Vinay Nettles MD Work Phone: [facility] 09-14-2024 14:24-0400 Body height 167.[address] Vinay Nettles MD Work Phone: [facility] 09-14-2024 14:24-0400 Body temperature 98.1 [degF] Dr. Vinay Nettles MD Work Phone: [facility] 09-14-2024 14:24-0400 Diastolic blood pressure 65 mm[Hg] Dr. Vinay Nettles MD Work Phone: [facility] 09-14-2024 14:24-0400 Heart rate 77 /min Dr. Vinay Nettles MD Work Phone: [facility] 09-14-2024 14:24-0400 Respiratory rate 19 /min Dr. Vinay Nettles MD Work Phone: [facility] 09-14-2024 14:24-0400 SaO2% (BldA) [Mass fraction] 98 % Dr. Vinay Nettles MD Work Phone: [facility] 09-14-2024 14:24-0400 Systolic blood pressure 135 mm[Hg] Dr. Vinay Nettles MD Work Phone: [facility] 07-31-2023 11:39-0500 Diastolic blood pressure 94 mm[Hg] Denise Lory BIOLOGY TUTOR - [employer] Work Phone: [facility] 07-31-2023 11:39-0500 Heart rate 76 /min Denise Lory BIOLOGY TUTOR [employer] Work Phone: [facility] 07-31-2023 11:39-0500 Systolic blood pressure 154 mm[Hg] Denise Lory BIOLOGY TUTOR - [employer] Work Phone: [facility] 07-31-2023 11:36-0500 Body height 165.1 cm Denise Lory BIOLOGY TUTOR - [employer] Work Phone: [facility] 07-31-2023 11:36-0500 Body mass index (BMI) [Ratio] 26.79 kg/m2 Denise Lory BIOLOGY TUTOR [employer] Work Phone: [facility] 07-31-2023 11:36-0500 Body weight 73.03 kg Denise Lory BIOLOGY TUTOR [employer] Work Phone: [facility] 07-11-2023 12:00-0500 Body temperature 97 [degF] Red Valdez MD Work Phone: [facility] 07-11-2023 12:00-0500 Diastolic blood pressure 65 mm[Hg] Red Valdez MD Work Phone: [facility] 07-11-2023 12:00-0500 Heart rate 82 /min Red Valdez MD Work Phone: [facility] 07-11-2023 12:00-0500 Respiratory rate 16 /min Red Valdez MD Work Phone: [facility] 07-11-2023 12:00-0500 SaO2% (BldA) [Mass fraction] 100 % Red Valdez MD Work Phone: [facility] 07-11-2023 12:00-0500 Systolic blood pressure 138 mm[Hg] Red Valdez MD Work Phone: [facility] 07-11-2023 07:19-0500 Body height 167.6 cm Red Valdez MD Work Phone: [facility] 07-11-2023 07:19-0500 Body mass index (BMI) [Ratio] 25.82 kg/m2 Red Valdez MD Work Phone: [facility] 07-11-2023 07:19-0500 Body weight 72.58 kg Red Valdez MD Work Phone: [facility] 06-19-2023 13:05-0500 Body height 167.6 cm Red Valdez MD Work Phone: [facility] 06-19-2023 13:05-0500 Body mass index (BMI) [Ratio] 25.89 kg/m2 Red Valdez MD Work Phone: [facility] 06-19-2023 13:05-0500 Body weight 72.76 kg Red Valdez MD Work Phone: [facility] 06-19-2023 13:05-0500 Diastolic blood pressure 89 mm[Hg] Red Valdez MD Work Phone: [facility] 06-19-2023 13:05-0500 Heart rate 76 /min Red Valdez MD Work Phone: [facility] 06-19-2023 13:05-0500 Systolic blood pressure 161 mm[Hg] Red Valdez MD Work Phone: [facility] Encounters Encounter Date Encounter Type Care Provider Facility Start: 03-20-2025 End: 03-20-2025 ambulatory Harshil Ledesma Facility:[facility] Start: 12-23-2024 End: 12-23-[address] Vinay Nettles MD Work Phone: -Occupational Therapy Start: 12-23-2024 End: 12-23-[address] Harshil Ledesma MD -Occupational Thera py Work Phone: Start: 12-20-2024 End: 12-20-[address] Harshil Ledesma MD -[facility] Work Phone: Start: 12-20-2024 End: 12-20-[address] Vinay Nettles MD Work Phone: -[facility] Start: 12-19-[address] Harshil patel MD -Occupational Therapy Work Phone: Start: 11-11-2024 End: 11-11-[address] Harshil Ledesma MD -[facility] Work Phone: Start: 11-11-2024 End: 11-11-[address] Vinay Nettles MD Work Phone: [facility] Work Phone: Start: 10-30-[address] Harshil patel MD -Occupational Therapy Work Phone: Start: 10-17-2024 End: 10-17-[address] Vinay Nettles MD Work Phone: [facility] Work Phone: Start: 10-17-2024 End: 10-17-2024 Patient encounter procedure Bertin Garcia [facility] [facility] -Outpatient Bone Densitometry Work Phone: Start: 10-17-[address] Harshil patel MD -Occupational Therapy Work Phone: Start: 10-17-2024 End: 10-17-[address] Vinay Nettles MD Work Phone: [facility] Work Phone: Start: 10-17-2024 End: 10-17-2024 Patient encounter procedure Bertin Garcia [facility] [facility] -Laboratory Josi Ruth Start: 10-17-2024 End: 10-17-2024 ambulatory Vinay Nettles Facility:[facility] Start: 10-15-2024 End: 10-15-[address] Harshil Ledesma MD -[facility] Work Phone: Start: 10-15-2024 End: 10-15-[address] Vinay Nettles MD Work Phone: [facility] Work Phone: Start: 10-15-[address] Harshil patel MD -Occupational Therapy Work Phone: Start: 10-01-2024 End: 10-01-[address] Harshil Ledesma MD -[facility] Work Phone: Start: 10-01-2024 End: 10-01-2024 ambulatory Vinay Nettles Facility:[facility] Start: 09-26-2024 End: 09-26-[address] Harshil Ledesma MD -[facility] Work Phone: Start: 09-26-2024 End: 09-26-2024 ambulatory Vinay Nettles Facility:[facility] Start: 09-24-2024 End: 09-24-[address] Harshil Ledesma MD -[facility] Work Phone: Start: 09-24-2024 End: 09-24-2024 ambulatory Harshil Ledesma Facility:[facility] Start: 09-18-2024 End: 09-18-2024 Admission to same day surgery center Dr. Harshil Ledesma MD -Surgical Day Care Start: 09-18-2024 End: 09-18-2024 ambulatory Harshil Ledesma Facility:[facility] Start: 09-18-2024 ambulatory Harshil Ledesma Facility:[facility] Start: 09-18-2024 Non-patient / Non-visit Dr. Harshil levy MD -[facility] Start: 09-16-2024 End: 09-16-[address] Harshil Ledesma MD -[facility] Work Phone: Start: 09-16-2024 End: 09-16-2024 ambulatory Harshil Ledesma Facility:[facility] Start: 09-14-2024 End: 09-14-2024 Emergency department patient visit Dr. Vinay Nettles MD Work Phone: -Emergency Department Work Phone: Start: 05-27-2024 End: 05-27-[address] Vinay Nettles MD -Outpatient Breast Imaging Work Phone: Start: 05-27-2024 End: 05-27-2024 ambulatory Vinay Nettles Facility:[facility] Start: 07-31-2023 End: 07-31-2023 ambulatory DENISE LORY [facility] Start: 07-31-2023 End: 07-31-2023 Postop follow up visit related to original px Denise Harrisod BIOLOGY TUTOR - [employer] Work Phone: [facility]nec[facility] Comment on above: Postoperative visit (Primary Dx) Start: 07-14-2023 Telephone encounter Red Valdez MD Work Phone: [facility] Start: 07-13-2023 Telephone encounter Denise schroeder BIOLOGY TUTOR - [employer] Work Phone: [facility] Start: 07-11-2023 End: 07-11-2023 ambulatory RED VALDEZ [facility] Start: 07-11-2023 End: 07-11-2023 Subsequent hospital visit by physician Red Valdez MD Work Phone: [facility] MAIN OR Comment on above: S/P laparoscopy (Cary lilian Dx); Intra-abdominal and pelvic swelling, mass and lump, unspecified site; Postmenopausal bleeding Start: 07-04-2023 End: 07-04-2023 ambulatory [facility] Start: 06-20-2023 Telephone encounter Red Valdez MD Work Phone: [facility]nec[facility] Comment on above: surgery scheduling ( Scheduled at [facility]) Start: 06-19-2023 End: 06-19-2023 ambulatory Red Valdez MD Work Phone: [facility] Start: 06-19-2023 End: 06-19-2023 Office outpatient new 30 minutes Red Valdez MD Work Phone: [facility] Comment on above: Abnormal finding on radiology exam (Primary Dx); PMB (postmenopausal bleeding) Start: 05-17-2023 End: 05-17-2023 ambulatory [facility] Work Phone: Start: 05-17-2023 End: 05-17-2023 Patient encounter procedure [facility]-Outpatient Breast Imaging Work Phone: Start: 04-24-2023 End: 04-24-2023 ambulatory [facility] Work Phone: Start: 04-24-2023 End: 04-24-2023 Patient encounter procedure [facility]-Ultrasound, [facility] Work Phone: Start: 04-10-2023 End: 04-10-2023 ambulatory [facility] Work Phone: Start: 04-10-2023 End: 04-10-2023 Patient encounter procedure [facility]-Laboratory, Specimen Work Phone: Start: 03-30-2023 End: 03-30-2023 ambulatory [facility] Work Phone: Start: 03-30-2023 End: 03-30-2023 Patient encounter procedure [facility]-Laboratory, [place] Work Phone: Start: 10-17-2022 Non-patient / Non-visit Dr. Luz Marina Nettles Work Phone: [facility] Start: 10-17-2022 End: 10-17-[address] Jose Carlos Nettles Work Phone: [facility] Work Phone: Start: 10-17-2022 End: 10-17-[address] Jose Carlos Nettles Work Phone: [facility]-Outpatient Pavilion Ultrasound Start: 10-14-2022 End: 10-14-[address] Jose Carlos Nettles Work Phone: [facility] Work Phone: Start: 10-14-2022 End: 10-14-[address] Jose Carlos Nettles Work Phone: [facility]-Laboratory, [place] Start: 10-13-2022 End: 10-13-[address] Jose Carlos Nettles Work Phone: [facility]-Outpatient Bone Densitometry Start: 09-05-2022 End: 09-05-2022 ambulatory [facility] Work Phone: Start: 09-05-2022 End: 09-05-2022 Patient encounter procedure [facility]-Cat Scan, [facility] Start: 05-16-2022 End: 05-16-2022 ambulatory [facility] Work Phone: Start: 05-16-2022 End: 05-16-2022 Patient encounter procedure [facility]-Outpatient Breast Imaging Start: 12-01-2021 End: 12-01-2021 Patient encounter procedure [facility]-Laboratory, Specimen Procedures Date Procedure Procedure Detail Performing Clinician Start: 10-17-2024 Dual energy X-ray absorptiometry Dr. Vinay Nettles MD Work Phone: Start: 09-18-2024 Fluoroscopic guidance Kacey Nettles MD Work Phone: Start: 09-18-2024 Plain X-ray of finger Kacey Nettles MD Work Phone: Start: 09-14-2024 Plain X-ray of finger Kacey Nettles MD Work Phone: Start: 05-27-2024 Screening mammography Kacey Nettles MD Work Phone: Start: 07-11-2023 Antibody screen DORYS NETTLES Comment on above: Order Comment: HOLD. Specimen is valid for 3 days - nurse to verify valid specimen Performed By: #### L [id number] ####Drafter (Cad) Electronic: RUDDY MCCABE ([id number])[facility] ([facility])[address] [place] [address] Start: 07-11-2023 ABO and Rh group [Ty pe] in Blood by Confirmatory method Red Valdez MD Work Phone: Start: 07-11-2023 Blood count complete automated Red Valdez MD Work Phone: Start: 07-11-2023 Blood typing serologic abo Red Valdez MD Work Phone: Start: 05-17-2023 End: 05-17-2023 Screening mammography Start: 04-24-2023 Pelvic echography Start: 10-17-[address] Jose Carlos Nettles Work Phone: Start: 10-13-2022 Dual energy X-ray absorptiometry Dr. Jose Carlos Nettles Work Phone: Start: 09-05-2022 CT of chest without contrast Start: 05-16-2022 Screening mammography Plan of Treatment Date Care Activity Detail Author Start: 09-26-2032 DTaP/Tdap/Td Vaccine s (2 - Td or Tdap) DTaP/Tdap/Td Vaccines (2 - Td or Tdap) [facility] Start: 09-18-2024 Anes nerve muscle td n fascia&bursa forearm wrist ANESTH LOWER ARM SURGERY [facility] Start: 09-18-2024 Rpr xtnsr tdn cntrl slip tiss w/lat band ea fngr REPAIR FINGER/HAND TENDON [facility] Start: 09-18-2024 [facility] Start: 09-14-2024 [facility] Start: 09-14-2024 Simple repair scalp/neck/ax/genit/tyrone nk 2.5cm/< RPR S/N/AX/GEN/TRNK 2.5CM/< [facility] Start: 05-17-2024 Screening for malign ant neoplasm of breast Mammogram [facility] Start: 07-31-2023 End: 07-31-2023 Patient encounter procedure 07/31/2023 11:30 AM EST Office Visit [facility] Gynecologic Oncology [address] [place] [id number] Denise Henley APRN - CRACKER OFF [address] [place] [address] [facility] Gynecologic Oncology Start: 07-11-2023 End: 07-11-2023 Admission to same day surgery center 07/11/2023 9:00 AM EST - 07/11/2023 11:00 AM EST Surgery [facility] MAIN OR [address] [place] [id number] Red Valdez MD [address] [place] [address] ROBOTIC TRACHELECTOMY AND OOPHORECTOMY, POSSIBLE BILATERAL PELVIC SENTINEL LYMPH NODE BIOPSY WITH INDOCYANINE GREEN PROTOCOL [38599 (CPT )] [facility] MAIN OR Comment on above: ROBOTIC TRACHELECTOM Y AND OOPHORECTOMY, POSSIBLE BILATERAL PELVIC SENTINEL LYMPH NODE BIOPSY WITH INDOCYANINE GREEN PROTOCOL [44727 (CPT )] Start: 07-11-2023 End: 07-11-2023 Inj radioactive tracer for id of sentinel node LYMPHANGIOGRAPHY RADIOACTIVE TRACER FOR IDENTIFICATION SENTINEL NODE Intra-abdominal and pelvic swelling, mass and lump, unspecified site Postmenopausal bleeding 07/11/2023 9:00 AM EST [facility] Operating Room Start: 07-11-2023 End: 07-11-2023 Laparoscopy w/rmvl adnexal structures ROBOTIC (XI) LAPAROSCOPY OOPHORECTOMY Intra-abdominal and pelvic swelling, mass and lump, unspecified site Postmenopausal bleeding 07/11/2023 9:00 AM EST [facility] Operating [facility] Start: 07-11-2023 Subsequent hospital visit by physician 07/11/2023 9:00 AM EST Hospital Encounter [facility] MAIN OR [address] [place] [phone] Red Valdez MD [address] [place] [address] [facility] MA[facility] OR Start: 07-11-2023 End: 07-11-2023 Trachelectomy cervicectomy amp cervix spx ROBOTIC (XI) TRACHELECTOMY AMPUTATION OF CERVIX (CERVICECTOMY) Intra-abdominal and pelvic swelling, mass and lump, unspecified site Postmenopausal bleeding 07/11/2023 9:00 AM EST [facility] Operating [facility] Start: 07-04-2023 End: 07-04-2023 Admission to establishment 07/04/2023 9:00 AM EST Pre-Admission Testing [facility] Pre-Admit Testing [address] [facility] [place] [id number] [facility] Pre-Admit Testing Start: 2023 Medicare Advantage Annual Wellness Visit Medicare Advantage Annual Wellness Visit [facility] Start: 01-27-2023 COVID-19 Vaccine ( season) COVID-19 Vaccine ( season) [facility] Start: 2017 RSV Immunization age d 60 or older (1 - 1-dose 60+ series) RSV Immunization aged 60 or older (1 - 1-dose 60+ series) [facility] Start: 2007 Zoster Vaccines (1 o f 2) Zoster Vaccines (1 of 2) [facility] Start: 03-13-2000 Hepatitis B Vaccines (2 of 3 - 19+ 3-dose series) Hepatitis B Vaccines (2 of 3 - 19+ 3-dose series) [facility] Start: 1975 Diabetes mellitus screening Diabetes Screening [facility] Start: 1975 Hepatitis C screening Hepatitis C Sc reening [facility] Start: 1969 Depression Screening Depression Scre ening [facility] Start: 1958 MMR Vaccines (1 of 1 - Standard series) MMR Vaccines (1 of 1 - Standard series) [facility] Start: 1957 Medicare Advantage Annual Wellness Visit (AWV) Medicare Advantage Annual Wellness Visit (AWV) [facility] Start: 1957 Screening for malign ant neoplasm of colon [facility] Start: 1957 Screening for osteoporosis Bone Density Scan [facility] Path report.final Dx Spec [facility] Patient Education ED Laceration, Hand: All Closures ED Tendon Laceration [facility] Work Phone: Patient referral [facility] Work Phone: Tissue exam [facility] Sy stem Work Phone: Comment on above: Release Upon [facility] for 1 Occurrences starting 07/11/2023 Payers Date Payer Category Payer Self-pay [id number] 2023 Medicare [employer] MEDICARE ADVANTAGE [id number] 2023-Present [address] [place] [address] Medicare HMO [id number] 2023 Medicare [id number] 2015 Unknown [id number] Medicare [id number] Medicare MEDICARE PART A B [id number] Unknown [id number] Unknown [id number] Unknown [id number] Unknown [id number] [id number] Unknown [id number] [id number] Unknown [id number] [id number] Unknown [id number] [id number] Unknown [id number] [id number]2 Unknown [id number] [id number] Unknown [id number] 2.16.840.1.196512.3.579.2.462 Unknown [id number] [id number] Unknown [id number] [id number] Unknown [id number] 2.16.840.1.293625.3.579.2.462 Unknown [id number] [id number] Unknown [id number] [id number] Unknown [id number] [id number] Unknown [id number] Social History Date Type Detail Facility Start: 07-23-2020 End: 07-23-2020 Tobacco smoking status [facility] Unknown if ever smoked [facility] Start: 1955 Sex Assigned At Female W [facility] Start: 06-19-2023 End: 09-17-2024 Tobacco smoking status NHIS Ex-smoker [facility] End: 2005 History of tobacco use Current smoker [facility] End: 2005 History of tobacco use Cigarette Smoker [facility] Start: 06-19-2023 End: 07-31-2023 Cigarettes smoked current (pack per day) - Reported 0.5 [facility] Start: 06-19-2023 Tobacco use and exposure Smokeless tobacco non-user [facility] Start: 06-19-2023 End: 07-31-2023 Alcohol intake Lifetime non-drinker (finding) [facility] Start: 06-19-2023 End: 07-31-2023 Tobacco use panel [facility] Start: 1955 Sex Assigned At Not on file S [facility] Start: 06-27-2023 Gender identity Identifies as female gender (finding) [facility] Start: 06-27-2023 Sexual orientation Heterosexual (fin ding) [facility] Start: 09-14-2024 Sex Female (finding) [facility] NEGATED: Highlighted row Not [facility] Medical Equipment Procedure Code Equipment Code Equipment Origin al Text Equipment Identifier Dates Repair of tendon K-WIRE,.035 X 4 DBL BAYONET FDA Start: 09-18-2024 Repair of tendon ([id number]) Tendon/ligament bone anchor, non-bioabsorbable ([id number] FDA Start: 09-18-2024 Repair of tendon K-WIRE,.035 X 4 DBL BAYONET FDA Start: 09-18-2024 Repair of tendon K-WIRE,.035 X 4 DBL BAYONET FDA Start: 09-18-2024 Repair of tendon K-WIRE,.035 X 4 DBL BAYONET FDA Start: 09-18-2024 Repair of tendon K-WIRE,.035 X 4 DBL BAYONET FDA Start: 09-18-2024 Repair of tendon K-WIRE,.035 X 4 DBL BAYONET FDA Start: 09-18-2024 Goals Date Patient Goal Desired Activity /State Mental Status Date Assessment Result Facility 09-18-2024 Cognitive function Voice/Name [facility] Work Phone: Clinical Notes 04-10-2023 to 11-11-2024 Note Date & Type Note Facility 11-11-2024 Evaluation note Diagnosis Onset Date Resolution Central slip extensor tendon injury (boutonniere) acute November 11, 2024 3:25pm Central slip extensor tendon injury (boutonniere) acute December 20, 2024 1:52pm [facility] Work Phone: 1(739) 401-123204-21-2025 Evaluation note* Diagnosis Onset Date Resolution Status Admit Date Central slip extensor tendon injury (boutonniere) acute September 16, 2024 4:00pm Central slip extensor tendon injury (boutonniere) acute September 18, 2024 12:19pm Central slip extensor tendon injury (boutonniere) acute September 24, 2024 1:01pm Central slip extensor tendon injury (boutonniere) acute September 26 11:17am Central slip extensor tendon injury (boutonniere) acute October 01 1:45pm [facility] Work Phone: 1(524) 114-582304-21-2025 Evaluation note* Diagnosis Onset Date Resolution Status Admit Date Central slip extensor tendon injury (boutonniere) acute September 16, 2024 4:00pm Central slip extensor tendon injury (boutonniere) acute September 18, 2024 12:19pm Central slip extensor tendon injury (boutonniere) acute September 24, 2024 1:01pm Central slip extensor tendon injury (boutonniere) acute September 26 11:17am Central slip extensor tendon injury (boutonniere) acute October 01 1:45pm Central slip extensor tendon injury (boutonniere) acute October 15, 025 3:38pm [facility] Work Phone: 1(907) 264-519704-21-2025 Evaluation note* Diagnosis Onset Date Resolution Status Admit Date Central slip extensor tendon injury (boutonniere) acute September 16, 2024 4:00pm Central slip extensor tendon injury (boutonniere) acute September 18, 2024 12:19pm Central slip extensor tendon injury (boutonniere) acute September 24, 2024 1:01pm Central slip extensor tendon injury (boutonniere) acute September 26 11:17am Central slip extensor tendon injury (boutonniere) acute October 01 1:45pm Central slip extensor tendon injury (boutonniere) acute October 15, 2 025 3:38pm Central slip extensor tendon injury (boutonniere) acute November 11, 2024 3:25pm [facility] Work Phone: 1(559) 747-939504-19-2025 Discharge summary [facility] Medical Records Department [address] [place] [address] Emergency Department Summary 09/14/24 MR#: [id number] Acct: [id number] Name: AUDRA LINDSEY Rep #:[id number] : 1955 69 From: Gutierrez Cortez PCP: Dr. Vinay Nettles MD Status :REG ER Location: ED HPI History of Present Illness HPI Narrative: Patient presents with laceration to her left index finger that occurred today. Patient states she was sharpening a knife when it accidentally slipped and cut her finger. Patient states the bleeding has been persistent. Patient describesher pain as throbbing. Patient states it is worse when she bends her finger. Patient states it is better with rest. Patient denies any paresthesias or weakness. Patient states her last tetanus was on 09/26/2022. Chief Complaint: Laceration Informant: patient Occured/Mechanism Comment: Accidentally cut with a knife Onset/Context/Timing Onset: Today Context: Sudden Onset Timing: Continuous Quality of Pain: Throbbing Location: Left index finger Worsened by: Flexion Relieved by: Rest Associated Symptoms Associated Symptoms: Negative for Parasthesia, Weakness or Loss of Funtion PFSH [facility] Medical History (Updated 09/14/24 @ 16:[address] Gutierrez Rodriguez, DO) Hypertension Abnormal mammogram of left breast Chronic neck and back pain Shoulder pain Home Medications ?Medication ?Instructions ?Recorded ?Last Taken ?Type aspirin 81 mg tablet,delayed 81 mg PO DAILY 05/20/19 1 07/20/18 History release famotidine 20 mg tablet 20 mg PO DAILY 07/23/20 Unkn own History multivitamin 1 ea PO DAILY 07/23/20 Unkno wn History alprazolam 0.5 mg tablet 0.5 mg PO DAILY PRN 06/15/23 Unknown History ipratropium bromide 42 mcg (0.06 2 spray intranasal BI D 06/15/23 Unknown History %) nasal spray cephalexin 500 mg capsule 500 mg PO Q6 #40 CAPSULES Unknown Rx Allergy/AdvReac Type Severity Reaction Status Date / Time clavulanic acid (From AdvReac Severe Nausea Verified 09/14/24 14:24 Augmentin) Family History Son Asthma Mother Breast cancer Hypertension Grandmother Breast cancer Brother Cancer liver cancer Grandfather Cancer prostate cancer Uncle Cancer prostate cancer Surgical History History of hysterectomy History of colonoscopy History of spinal surgery Social History Smoking Status: Former smoker alcohol intake: never substance use type: does not use ROS ROS ED Constitutional Constitutional ED: Denies chills or fever(s) Eyes Eyes: Denies blurry vision or change in vision ENT ENT ED: Denies rhinorrhea or sore throat Cardiovascular Cardiovascular: Denies chest pain or palpitations Respiratory/Chest Respiratory/Chest: Denies cough or dyspnea Gastrointestinal Gastrointestinal: Denies nausea or vomiting Genitourinary Genitourinary ED: Denies dysuria or hematuria Musculoskeletal Musculoskeletal: Denies back pain or neck pain Integumentary Denies abscess or rash Neurologic Neurologic: Denies headache(s) or weakness Allergic/Immunologic Allergic/Immunologic ED: Denies mouth swelling or urticaria EXAM Physical Exam Const Vital Signs: 09/14/24 14:24 Temperature 98.1 F Temperature Source Oral Pulse Rate 77 Respiratory Rate 19 H Blood Pressure 135/65 H Blood Pressure Mean 88 Pulse Ox 98 Oxygen Delivery Method Room Air Positive well nourished and well developed General Appearance ED: well developed and NAD HEENT Reports moist mucous membranes Neck full ROM and supple Extremity Extremity Narrative: There is a 1.5 cm curvilinear laceration of the dorsal aspect of the left index finger. There is moderate bleeding noted. There is mild gapping of the wound margins. Sensation was intact to light touch in all digits. Capillary refill was less than 2 seconds in all digits. Patient was unable to extend the PIP andDIP joints against resistance. Patient had good flexion of the PIP and DIP joints. Neuro oriented x3, CN's II-XII intact bilaterally, moves all extremities, no focal motor deficits and no sensory deficits noted Sensorium / Orientation: alert Motor Exam: strength 5/5 throughout Psych mental status grossly normal Skin Trauma: laceration linear, actively bleeding, involves subcutaneous tissue, motor nerve function intact and sensation intact MDM MDM MDM Narrative Medical decision making narrative: Differential diagnosis includes skin laceration, tendon laceration, open fracture, and contusion. X-rays of the left index finger will be obtained to assess for fracture and foreign body. Radiography Diagnostic Testing: X-rays of the left finger were obtained. There are 3 views. On my independent interpretation, thereis no acute fracture. There is no foreign body noted. Radiologist also interpreted the x-rays and agrees. Treatment and Re-Evaluation Narrative: The wound was cleaned and irrigated with copious amounts of normal saline. The wound was anesthetized with 1% plain lidocaine via digital block. The wound wasclosed with 3 simple interrupted #4-0 nylon sutures under sterile technique. Patient tolerated the procedure well. Bacitracin dressing was applied. Patientwas given a dose of Keflex here. Patient is given a prescription for Keflex. Patient was placed in AlumaFoam splint. Case was discussed with Dr. Ledesma from plastic surgery. He will follow-up with the patient on Monday afternoon. Patient understood and was agreeable with the plan. All questions were answered. Discharge Plan Triage Chief Complaint: Laceration ED Provider: Gutierrez Rodriguez Dx/Rx/DC Orders Clinical Impression: Laceration of left index finger w/o foreign body w/o damage to nail, Extensor tendon laceration of finger with open wound Instructions: ED Laceration, Hand: All Closures, ED Tendon Laceration Prescriptions: New cephalexin 500 mg capsule 500 mg PO Q6 Qty: 40 0RF No Action aspirin 81 MG tablet,delayed release (DR/EC) 81 mg PO DAILY Patient Comments: stop 1 week prior to colonoscopy multivitamin 1 EACH tablet 1 ea PO DAILY famotidine 20 MG tablet 20 mg PO DAILY Primary Care Provider: Vinay Nettles Referrals: Vinay Nettles MD [Primary Care Provider] - Harshil Ledesma MD [Med Staff - Active Staff] - 2 Days Activity Restrictions/Additional Instructions: Dr. Ledesma's office will call you Monday to schedule the appointment Monday Print Language: Lithuanian Disposition Disposition: Home, Self Care What to do if you have Problems For any increased pain, shortness of breath, bleeding, nausea or vomiting, chestpain, or any unexpected problems, contact your Primary Care Provider. Call [facility] ([phone]) or report tothe closest Emergency Room. Call 911 if necessary. 09/14/24 1630 Cosigner Signature (if applicable): CC: Dr. Vinay Nettles MD ~ Signed [facility]04-19-2025 Radiology Diagnostic study note [facility] Imaging Services [address] [place], [place] [address] Finger(s) Min 2 Views MR#: [id number] Acct: [id number] Name: AUDRA LINDSEY Rep #: [id number] : 1955 F 69 From: Ronda Lyon MD PCP: Dr. Vinay Nettles MD Status: REG ER Study:Finger(s) Min 2 Views Date of Exam: 09/14/24 Exam# [id number] Ordering Dr: Gutierrez Rodriguez DO PROCEDURE: FINGER(S) MIN 2 VIEWS 09/14/2024 REASON FOR EXAM: INJURY/PAIN TECHNIQUE: 3 view(s) of the left 2nd finger COMPARISON: None. FINDINGS: Bones: No acute osseous fracture. No aggressive osseous lesions. Joints: Normal alignment. Joint spaces preserved. No arthropathic features. Soft tissues: No soft tissue gas. No radiopaque foreign body. RAD/Finger(s) Min 2 Views IMPRESSION: NEGATIVE FINGER SERIES Reading Location: [facility] CC: Dr. Vinay Nettles MD; Dr. Gutierrez Rodriguez DO ~ Craniologist: Signed [facility]04-19-2025 Discharge summary Author Gutierrez Rodriguez [facility] Note Date/Time September 14, 2024 4:3 3pm [facility] Medical Records Department [address] [place] [address] Emergency Department Summary 09/14/24 MR#: [id number] Acct: [id number] Name: AUDRA LINDSEY Rep #:[id number] : 1955 69 From: Gutierrez Cortez PCP: Dr. Vinay Nettles MD Status :REG ER Location: ED HPI History of Present Illness HPI Narrative: Patient presents with laceration to her left index finger that occurred today. Patient states she was sharpening a knife when it accidentally slipped and cut her finger. Patient states the bleeding has been persistent. Patient describesher pain as throbbing. Patient states it is worse when she bends her finger. Patient states it is better with rest. Patient denies any paresthesias or weakness. Patient states her last tetanus was on 09/26/2022. Chief Complaint: Laceration Informant: patient Occured/Mechanism Comment: Accidentally cut with a knife Onset/Context/Timing Onset: Today Context: Sudden Onset Timing: Continuous Quality of Pain: Throbbing Location: Left index finger Worsened by: Flexion Relieved by: Rest Associated Symptoms Associated Symptoms: Negative for Parasthesia, Weakness or Loss of Funtion [facility] Medical History (Updated 09/14/24 @ 16:[address] Gutierrez Rodriguez, DO) Hypertension Abnormal mammogram of left breast Chronic neck and back pain Shoulder pain Home Medications ?Medication ?Instructions ?Recorded ?Last Taken ?Type aspirin 81 mg tablet,delayed 81 mg PO DAILY 05/20/19 1 07/20/18 History release famotidine 20 mg tablet 20 mg PO DAILY 07/23/20 Unkn own History multivitamin 1 ea PO DAILY 07/23/20 Unkno wn History alprazolam 0.5 mg tablet 0.5 mg PO DAILY PRN 06/15/23 Unknown History ipratropium bromide 42 mcg (0.06 2 spray intranasal BI D 06/15/23 Unknown History %) nasal spray cephalexin 500 mg capsule 500 mg PO Q6 #40 CAPSULES Unknown Rx Allergy/AdvReac Type Severity Reaction Status Date / Time clavulanic acid (From AdvReac Severe Nausea Verified 09/14/24 14:24 Augmentin) Family History Son Asthma Mother Breast cancer Hypertension Grandmother Breast cancer Brother Cancer liver cancer Grandfather Cancer prostate cancer Uncle Cancer prostate cancer Surgical History History of hysterectomy History of colonoscopy History of spinal surgery Social History Smoking Status: Former smoker alcohol intake: never substance use type: does not use ROS ROS ED Constitutional Constitutional ED: Denies chills or fever(s) Eyes Eyes: Denies blurry vision or change in vision ENT ENT ED: Denies rhinorrhea or sore throat Cardiovascular Cardiovascular: Denies chest pain or palpitations Respiratory/Chest Respiratory/Chest: Denies cough or dyspnea Gastrointestinal Gastrointestinal: Denies nausea or vomiting Genitourinary Genitourinary ED: Denies dysuria or hematuria Musculoskeletal Musculoskeletal: Denies back pain or neck pain Integumentary Denies abscess or rash Neurologic Neurologic: Denies headache(s) or weakness Allergic/Immunologic Allergic/Immunologic ED: Denies mouth swelling or urticaria EXAM Physical Exam Const Vital Signs: 09/14/24 14:24 Temperature 98.1 F Temperature Source Oral Pulse Rate 77 Respiratory Rate 19 H Blood Pressure 135/65 H Blood Pressure Mean 88 Pulse Ox 98 Oxygen Delivery Method Room Air Positive well nourished and well developed General Appearance ED: well developed and NAD HEENT Reports moist mucous membranes Neck full ROM and supple Extremity Extremity Narrative: There is a 1.5 cm curvilinear laceration of the dorsal aspect of the left index finger. There is moderate bleeding noted. There is mild gapping of the wound margins. Sensation was intact to light touch in all digits. Capillary refill was less than 2 seconds in all digits. Patient was unable to extend the PIP andDIP joints against resistance. Patient had good flexion of the PIP and DIP joints. Neuro oriented x3, CN's II-XII intact bilaterally, moves all extremities, no focal motor deficits and no sensory deficits noted Sensorium / Orientation: alert Motor Exam: strength 5/5 throughout Psych mental status grossly normal Skin Trauma: laceration linear, actively bleeding, involves subcutaneous tissue, motor nerve function intact and sensation intact MDM MDM MDM Narrative Medical decision making narrative: Differential diagnosis includes skin laceration, tendon laceration, open fracture, and contusion. X-rays of the left index finger will be obtained to assess for fracture and foreign body. Radiography Diagnostic Testing: X-rays of the left finger were obtained. There are 3 views. On my independent interpretation, there is no acute fracture. There is no foreign body noted. Radiologist also interpreted the x-rays and agrees. Treatment and Re-Evaluation Narrative: The wound was cleaned and irrigated with copious amounts of normal saline. The wound was anesthetized with 1% plain lidocaine via digital block. The wound wasclosed with 3 simple interrupted #4-0 nylon sutures under sterile technique. Patient tolerated the procedure well. Bacitracin dressing was applied. Patientwas given a dose of Keflex here. Patient is given a prescription for Keflex. Patient was placed in AlumaFoam splint. Case was discussed with Dr. Ledesma from plastic surgery. He will follow-up with the patient on Monday afternoon. Patient understood and was agreeable with the plan. All questions were answered. Discharge Plan Triage Chief Complaint: Laceration ED Provider: Gutierrez Rodriguez Dx/Rx/DC Orders Clinical Impression: Laceration of left index finger w/o foreign body w/o damage to nail, Extensor tendon laceration of finger with open wound Instructions: ED Laceration, Hand: All Closures, ED Tendon Laceration Prescriptions: New cephalexin 500 mg capsule 500 mg PO Q6 Qty: 40 0RF No Action aspirin 81 MG tablet,delayed release (DR/EC) 81 mg PO DAILY Patient Comments: stop 1 week prior to colonoscopy multivitamin 1 EACH tablet 1 ea PO DAILY famotidine 20 MG tablet 20 mg PO DAILY Primary Care Provider: Vinay Nettles Referrals: Vinay Nettles MD [Primary Care Provider] - Harshil Ledesma MD [Med Staff - Active Staff] - 2 Days Activity Restrictions/Additional Instructions: Dr. Ledesma's office will call you Monday to schedule the appointment Monday Print Language: Lithuanian Disposition Disposition: Home, Self Care What to do if you have Problems For any increased pain, shortness of breath, bleeding, nausea or vomiting, chestpain, or any unexpected problems, contact your Primary Care Provider. Call [facility] ([phone]) or report to the closest Emergency Room. Call 911 if necessary. 09/14/24 1633 <Electronically signed by Gutierrez Rodriguez DO> Cosigner Signature (if applicable): CC: Dr. Vinay Nettles MD ~ Signed [facility] Work Phone: 1(257) 824-592703-04-2024 History of Present illness Narrative* Denise Henley APRN - GONZALES - 07/31/2023 11:30 AM EST Chief Complaint Patient presents with Post-op Visit 3 weeks No complaints History of the Present Illness: Audra Lindsey is a 68 y.o. who presents to the office for post-operative evaluation. She underwent ROBOTIC TRACHELECTOMY AND OOPHORECTOMY, on 07/11/23 and final pathology showed: Final Diagnosis A. CERVIX, LEFT TUBE AND OVARY, TRACHELECTOMY AND LEFT SALPINGO-OOPHORECTOMY: - BENIGN CERVIX WITH NABOTHIAN CYSTS, TUNNEL CLUSTERS AND STROMAL SMOOTH MUSCLE PROLIFERATION. - BENIGN FALLOPIAN TUBE AND OVARY. Interval History: Since her surgery she has been doing well and is without complaints. She denies fevers, chills, nausea, vomiting, bowel or bladder dysfunction. Pain is well controlled. No drainage from incisions. Noabnormal vaginal bleeding or discharge. Doing well. Having hot flashes- going to see her pcp who was ordering her hormones. Past Medical History: Diagnosis Date GERD (gastroesophageal reflux disease) Past Surgical History: Procedure Laterality Date BREAST BIOPSY CERVICAL FUSION FOOT SURGERY crooked toe OTHER SURGICAL HISTORY 2007 BX BREAST PERC VACUUM/ROTN x2 TOTAL ABDOMINAL HYSTERECTOMY 1992 w/wo rmvl tube ovary @[facility]@ Allergies Allergen Reactions Augmentin [Amoxicillin-Pot Clavulanate] Review of Systems: As per the HPI, otherwise negative Vitals: 07/31/23 1139 BP: (!) 154/94 Pulse: 76 Body mass index is 26.79 kg/m . Physical Exam Constitutional: Appearance: Normal appearance. Pulmonary: Effort: Pulmonary effort is normal. Abdominal: General: Abdomen is flat. Palpations: Abdomen is soft. Comments: Well-healing laparoscopic incision's, without erythema, warmth, induration, or discharge. Neurological: General: No focal deficit present. Mental Status: She is alert and oriented to person, place, and time. Psychiatric: Mood and Affect: Mood normal. Behavior: Behavior normal. Assessment/Plan: 68 y.o. s/p ROBOTIC TRACHELECTOMY AND OOPHORECTOMY, for Intra-abdominal and pelvic swelling, mass and lump, unspecified site, Postmenopausal bleeding. Doing well from a post-operative standpoint. Post-operative instructions reviewed. Patient was given a copy of the pathology report for her records. The patient had an opportunity to ask questions, all of which were answered to the best of my ability. She is in agreement with the above noted plan. Follow up with primary [facility] for annual well woman exams documented in this [facility]02-16-2024 Telephone encounter Note* Telephone Encounter - Telly Parks - 07/14/2023 7:28 AM EST Faxed to Dr. Nettles at [phone] via machine. Confirmation scanned within media [place] [id number] Miscellaneous Notes* Telephone Encounter - Telly Parks - 07/14/2023 7:28 AM EST Faxed to Dr. Nettles at [phone] via machine. Confirmation scanned within media * Telephone Encounter - Telly Parks - 07/14/2023 7:27 AM EST ----- Message from Red Valdez MD sent at 07/13/2023 2:57 PM EST ----- Plz fax to justin Alcantar ----- Message ----- From: RFMicron Elsy Reyes Sent: 07/13/2023 10:23 AM EST To: Red Valdez MD documented in this encounterSPro[facility] [id number] Telephone encounter Note* Telephone Encounter - Telly Parks - 07/14/2023 7:27 AM EST ----- Message from Red Valdez MD sent at 07/13/2023 2:57 PM EST ----- Plz fax to justin Alcantar ----- Message ----- From: RFMicron Elsy Reyes Sent: 07/13/2023 10:23 AM EST To: Red Valdez MD [place] [id number] Telephone encounter Note* Telephone Encounter - FELICITA Goodson CNP - 07/13/2023 2:59 PM EST Called patient with benign pathology results. Patient states she is doing well and reinforced her upcoming postoperative appointment. Patient verbalizes understanding [facility] Work Phone: 1(796) 257-413002-15-2024 Miscellaneous Notes* Telephone Encounter - Denise HenleyFELICITA CNP - 07/13/2023 2:59 PM EST Called patient with benign pathology results. Patient states she is doing well and reinforced her upcoming postoperative appointment. Patient verbalizes understanding documented in this [facility]02-13-2024 NotePatient: Audra Rosalia Procedure Summary Date: 07/11/23 Room / Location: [address] Operating Room Anesthesia Start: 818 Anesthesia Stop: 922 Procedures: ROBOTIC TRACHELECTOMY AND OOPHORECTOMY, POSSIBLE BILATERAL PELVIC SENTINEL LYMPH NODE BIOPSY WITH INDOCYANINE GREEN PROTOCOL (Abdomen) ROBOTIC (XI) LAPAROSCOPY OOPHORECTOMY (Bilateral: Abdomen) LYMPHANGIOGRAPHY RADIOACTIVE TRACER FOR IDENTIFICATION SENTINEL NODE (Bilateral) Diagnosis: Intra-abdominal and pelvic swelling, mass and lump, unspecified site Postmenopausal bleeding (Intra-abdominal and pelvic swelling, mass and lump, unspecified site [R19.00]) (Postmenopausal bleeding [N95.0]) Surgeons: Red Valdez MD Responsible Provider: Rayo Anthony MD Anesthesia Type: general, regional ASA Status: 3 Anesthesia Type: general, regional Vitals Value Taken Time BP 153/84 07/11/23 1115 Temp 36.1 ?C (97 ?F) 07/11/23 0921 Pulse 82 07/11/23 1124 Resp 16 07/11/23 1115 SpO2 100 % 07/11/23 1124 Vitals shown include unfiled device data. Anesthesia Post Evaluation Patient location during evaluation: PACU Patient participation: complete - patient participated Level of consciousness: awake and alert Pain management: satisfactory to patient Airway patency: patent Dental Injury: no Cardiovascular status: acceptable, blood pressure returned to baseline and hemodynamically stable Respiratory status: acceptable and spontaneous ventilation Hydration status: euvolemic Nausea/Vomiting: controlled No notable events documented. Patient can be discharged once all PACU criteria has been met.[facility]02-13-2024 NotePatient: Audra Lindsey Procedure Summary Date: 07/11/23 Room / Location: [address] Operating Room Anesthesia Start: 818 Anesthesia Stop: 922 Procedures: ROBOTIC TRACHELECTOMY AND OOPHORECTOMY, POSSIBLE BILATERAL PELVIC SENTINEL LYMPH NODE BIOPSY WITH INDOCYANINE GREEN PROTOCOL (Abdomen) ROBOTIC (XI) LAPAROSCOPY OOPHORECTOMY (Bilateral: Abdomen) LYMPHANGIOGRAPHY RADIOACTIVE TRACER FOR IDENTIFICATION SENTINEL NODE (Bilateral) Diagnosis: Intra-abdominal and pelvic swelling, mass and lump, unspecified site Postmenopausal bleeding (Intra-abdominal and pelvic swelling, mass and lump, unspecified site [R19.00]) (Postmenopausal bleeding [N95.0]) Surgeons: Red Valdez MD Responsible Provider: Rayo Anthony MD Anesthesia Type: general, regional ASA Status: 3 Anesthesia Type: general, regional Vitals Value Taken Time BP 153/84 07/11/23 1115 Temp 36.1 ?C (97 ?F) 07/11/23 0921 Pulse 82 07/11/23 1124 Resp 16 07/11/23 1115 SpO2 100 % 07/11/23 1124 Vitals shown include unfiled device data. Anesthesia Post Evaluation Patient location during evaluation: PACU Patient participation: complete - patient participated Level of consciousness: awake and alert Pain management: satisfactory to patient Multimodal analgesia pain management approach Airway patency: patent Two or more strategies used to mitigate risk of obstructive sleep apnea Cardiovascular status: acceptable and hemodynamically stable Respiratory status: acceptable Hydration status: acceptable No notable events documented. MIPS #430 PONV Patient received an inhalational anesthetic (4554F) Patient exhibits three or more risk factors for PONV (4556F) Patient received at leaset 2 prophylactic Rx PONV anti-emtic agents of different classes preop and/or intraop (G9775) MIPS # 424 Perioperative Temperature Management Anesthesia time was 60 minutes or longer (4255F) Anesthesai administered was General (inhalational or TIVA) or Neuraxial block (X0424) At least one body temperature greater than 95.8F/35.5C achieved within the 30 mins immediately prior to or the 15 minutes immediately following anesthesia end time (G9771) MIPS #477 Multimodal Pain Management Not emergent case Patient was administered multimodal pain management (two or more drugs and/or interventions excluding systemic opioids) in the periopeartive period occurring at some time between 6 hours prior to anesthesia start time until discharged from PACU (G2148) MIPS #404 Anesthesiology Smoking Abstinence The patient is not a current smoker (e.g. cigarette, cigar, pipe, e-cigarette/vaping/marijuana) If no stop here (G9644) I completed my handoff to the receiving clinician during which we: 1. Identified the patient 2. Identified the responsible provider 3. Reviewed the pertinent medical history 4. Discussed the surgical course 5. Reviewed intra-op anesthesia management and issues during anesthesia 6. Set expectations for post-procedure period 7. Allowed opportunity for questions and acknowledgement of understanding.[facility]02-13-2024 Note* Nurse Navigation Note - Brittney Grant RN - 07/11/2023 12:09 PM EST Patient ambulated to the bathroom and void x1 [id number]* Nurse Navigation Note - Brittney Grant RN - 07/11/2023 12:09 PM EST Patient ambulated to the bathroom and void x1 [facility] [id number] Miscellaneous Notes* Nurse Navigation Note - Brittney Grant RN - 07/11/2023 12:09 PM EST Patient ambulated to the bathroom and void x1 * Perioperative Nursing Note - Yessy Lew RN - 07/11/2023 11:33 AM EST When attempting to get patient up, began shaking again. Lucy Wiseman CRNA notified and order for demerol received. * Perioperative Nursing Note - Yessy Lew RN - 07/11/2023 11:08 AM EST Patient has not had further shivering. Doing well. * Perioperative Nursing Note - Yessy Lew RN - 07/11/2023 10:56 AM EST Patients son to bedside to visit. * Perioperative Nursing Note - Yessy Lew RN - 07/11/2023 10:35 AM EST Lucy Wiseman CRNA called to bedside to see patient. Patient started shaking after being her over an hour. Warm blankets applied and will monitor. * Perioperative Nursing Note - Yessy Lew RN - 07/11/2023 10:19 AM EST Patient's called to bedside. * Perioperative Nursing Note - Yessy Lew RN - 07/11/2023 9:45 AM EST ORAL AIRWAY D/C'D. * Perioperative Nursing Note - Yessy Lew RN - 07/11/2023 9:21 AM EST Received from OR with oral airway in place. Vitals stable. * Op Note - Red Valdez MD - 07/11/2023 8:19 AM EST Date of surgery July 11, 2023 Preoperative diagnosis cervical mass, postmenopausal bleeding, retained ovary Postop diagnosis same Procedure abdominal trachelectomy, laparoscopic oophorectomy, left side Surgeon José Miguel anesthesia General Description of findings; the cervix was grossly normal. There was a loop of small and large bowel that was adherent to the top of the cervix into abdominally which may accounted for the abnormal MRI findings. The cervix was removed intact, was opened off the field and had no evidence of malignancy.The right ovary was surgically absent. Description of operation patient identified brought to the operating room and after ministration ofgeneral anesthetic underwent abdominal perineal vaginal prep and drape in the lithotomy position using the yellowfin's. A Kimble cath was placed in the bladder sponge stick in the vagina. Using a knife a small incision was made in the left upper quadrant using the 5 mm Optiview blunt port the abdominal cavity was entered under direct vision insufflated with CO2 and then under direct vision da John ports were placed under direct vision. Trendelenburg was then used to get the bowel out of the pelvis and the da John was docked. The left pelvic sidewall was opened the left ureter identified the left ovarian vessels were skeletonized above the ureter coagulated bipolar cautery and divided. The ovary and tube was then removed off the left pelvic sidewall using Bovie dissection. Attention was then turned to the cervix. The anterior peritoneum was incised, the vesicovaginal space was opened and the bladder was dissected inferiorly. The uterosacral ligaments were identified. The ovarian vessels were skeletonized coagulated with bipolar cautery and divided. The upper cardinal ligaments were then gently coagulated, colpotomy incision was then made on top of the sponge stick in the cervix was removed in its entirety through the vagina as well as the left tube and ovary. The cuff is then closed using a running 0 V-Loc suture and the pelvis was irrigated hemostasis noted all instruments removed the abdominal cavity the da John undocked and trocars removed the Kimble was removed with 200 cc of clear urine and she was taken to the cover room in stable condition by anesthesia. Blood loss was minimal. The ports were removed and the defects and skin were closed with subcuticular 4-0 Monocryl and Dermabond. * Brief Op Note - Red Valdez MD - 07/11/2023 8:19 AM EST Date: 07/11/2023 Location: [facility] OR Name: Audra Lindsey, : 1955, Diagnosis Pre-op Diagnosis * Intra-abdominal and pelvic swelling, mass and lump, unspecified site [R19.00] * Postmenopausal bleeding [N95.0] Post-op Diagnosis * Intra-abdominal and pelvic swelling, mass and lump, unspecified site [R19.00] * Postmenopausal bleeding [N95.0] Procedures ROBOTIC TRACHELECTOMY AND OOPHORECTOMY, POSSIBLE BILATERAL PELVIC SENTINEL LYMPH NODE BIOPSY WITH INDOCYANINE GREEN PROTOCOL 14517 - DC TRACHELECTOMY CERVICECTOMY AMP CERVIX SPX ROBOTIC (XI) LAPAROSCOPY OOPHORECTOMY 17856 - DC LAPAROSCOPY W/RMVL ADNEXAL STRUCTURES LYMPHANGIOGRAPHY RADIOACTIVE TRACER FOR IDENTIFICATION SENTINEL NODE 13017 - DC INJ RADIOACTIVE TRACER FOR ID OF SENTINEL NODE Surgeons * Red Valdez - Primary Procedure Summary Anesthesia: General ASA: III Estimated Blood Loss: Minimal Drains: Urethral Catheter 16 Fr. (Active) Specimens ID Source Type Tests Collected By Collected At Frozen? Priority Lab ID 1 Cervix Tissue TISSUE EXAM Red Valdez MD 07/11/23 0859 Description: CERVIX, LEFT TUBE AND OVARY Staff: Connie Scratcher: Jackie Murray RN Scrub Person: Bertin Chou Findings: benign findings Complications: None; patient tolerated the procedure well. Specimens Collected: Order Name Source Comment Collection Info Order Time POTASSIUM WITH MG REFLEX For patients on dialysis to draw potassium day of surgery 07/11/2023 7:08 AM PROTHROMBIN TIME If patient on coumadin within 4 days prior. 07/11/2023 7:08 AM CBC (HEMOGRAM) Blood, Venous Collected By: Betsy Castrejon RN 07/11/2023 7:08 AM BLOOD TYPE AND SCREEN GEL Blood, Venous HOLD. Specimen is valid for 3 days - nurse to verify valid specimen Collected By: Betsy Castrejon RN 07/11/2023 7:08 AM HCG QUALITATIVE URINE Urine, Clean Catch Discontinue this order if: 1. patient is older than 55 years old 2. has had a prior hysterectomy 3. today's surgery is for treatment of known or suspected ectopic or loss. 4. patient has a known intrauterine but this is a needed surgery. 07/11/2023 7:08 AM TISSUE EXAM Cervix Pre-op diagnosis: Intra-abdominal and pelvic swelling, mass and lump, unspecified site [R19.00] Postmenopausal bleeding [N95.0] Collected By: Red Valdez MD 07/11/2023 9:00 AM Wound Class: Class II: Clean-Contaminated Blood Products: None Prophylactic Antibiotics: Procedure appropriate prophylactic antibiotic(s) given within 1 hour of surgical incision (two hours if receiving Vancomycin or flouroquinolone) documented in this [facility]02-13-2024 Note* Perioperative Nursing Note - Yessy Lew RN - 07/11/2023 11:33 AM EST When attempting to get patient up, began shaking again. Lucy Wiseman CRNA notified and order for demerol received. [id number] Note* Perioperative Nursing Note - Yessy Lew RN - 07/11/2023 11:33 AM EST When attempting to get patient up, began shaking again. Lucy Wiseman CRNA notified and order for demerol received. [facility] HospitalVmptlt04-71-8457 Note* Perioperative Nursing Note - Yessy Lew RN - 07/11/2023 11:08 AM EST Patient has not had further shivering. Doing well. [address]m07-99-2409 Note* Perioperative Nursing Note - Yessy Lew RN - 07/11/2023 11:08 AM EST Patient has not had further shivering. Doing well. [id number] Note* Perioperative Nursing Note - Yessy Lew RN - 07/11/2023 10:56 AM EST Patients son to bedside to visit. [place] [address]-13-2024 Note* Perioperative Nursing Note - Yessy Lew RN - 07/11/2023 10:56 AM EST Patients son to bedside to visit. [place] [address]-13-2024 NoteAirway Date/Time: 07/11/2023 8:25 AM Urgency: scheduled Airway not difficult General Information and Staff Patient location during procedure: Procedural Resident/FARMWORKER MACHINE: Codi Cramer APRN - FARMWORKER MACHINE Performed: FARMWORKER MACHINE Indications and Patient Condition Indications for airway management: anesthesia Sedation level: Asleep Preoxygenated: yes Patient position: sniffing Mask difficulty assessment: 1 - vent by mask Final Airway Details Final airway type: endotracheal airway Successful airway: ETT Cuffed: yes Successful intubation technique: direct laryngoscopy Blade: Aristides Blade size: #3 ETT size (mm): 7.0 Cormack-Lehane Classification: grade IIa - partial view of glottis Placement verified by: chest auscultation and capnometry Measured from: lips ETT to lips (cm): 20 Number of attempts at approach: [address] [place], [place] [id number] Note* Perioperative Nursing Note - Yessy Lew RN - 07/11/2023 10:35 AM EST Lucy Wiseman CRNA called to bedside to see patient. Patient started shaking after being her over an hour. Warm blankets applied and will monitor. [facility]02-13-2024 Note* Perioperative Nursing Note - Yessy Lew RN - 07/11/2023 10:35 AM EST Lucy Wiseman CRNA called to bedside to see patient. Patient started shaking after being her over an hour. Warm blankets applied and will monitor. [facility]02-13-2024 NotePeripheral Block Time Out: 07/11/2023 8:23 AM Patient location during procedure: Procedural Start time: 07/11/2023 8:24 AM End time: 07/11/2023 8:28 AM Reason for block: at surgeon's request and post-op pain management Staffing Performed: FARMWORKER MACHINE Resident/FARMWORKER MACHINE: FELICITA Orellana CRNA Preanesthetic Checklist Completed: patient identified, IV checked, site marked, risks and benefits discussed, surgical consent, monitors and equipment checked, pre-op evaluation and timeout performed Region: [place] Primary: TAP (Bupivacaine 0.375%/ Epi 1:200,000/ Dex 0.1mg/mL 40ml divided evenly bilateral) Secondary: Upper rectus (Bupivacaine 0.375%/ Epi 1:200,000/ Dex 0.1mg/mL 20ml divided evenly bilateral) Peripheral Block Patient position: supine Prep: ChloraPrep Patient monitoring: heart rate, satellite project site monitor, continuous pulse ox and continuous capnometry O2: ETT/LMA Laterality: bilateral Injection technique: single-shot Guidance: ultrasound guided -image retained in chart, tip of the needle identified by ultraound during injection. Needle Needle: 21G X 110 mm Additional Notes 07/11/2023 8:24 AM Assessment Injection assessment: negative aspiration for heme, no paresthesia on injection and incremental injection Heart rate change: no Slow fractionated injection: yes Required Documentation: Relevant anatomy identified (Nerves, Vessels, Muscles), Negative for blood on aspiration, Local anesthetic injected incrementally with intermittent aspiration every 5 mL, Normal resistance with injection, No EKG changes noted, No symptoms of toxicity, Local anesthetic spread visualized around nerves or plane. and Local anesthetic injected without difficultyMedications czgQQQCDjzkwo-hxdqwxxyosp-ejczndmbold (TAP) syringe - Injection 60 mL - 07/11/2023 8:24:00 [facility]02-13-2024 Note* Perioperative Nursing Note - Yessy Lew RN - 07/11/2023 10:19 AM EST Patient's called to bedside. [facility]02-13-2024 Note* Perioperative Nursing Note - Yessy Lew RN - 07/11/2023 10:19 AM EST Patient's called to bedside. [facility] HospitalEfpafk66-18-4548 NoteH&P reviewed. The patient was examined and there are no changes to the H&P.[facility]02-13-2024 NotePatient: Audra Lindsey Procedure Information Date/Time: 07/11/23 0900 Procedures: ROBOTIC TRACHELECTOMY AND OOPHORECTOMY, POSSIBLE BILATERAL PELVIC SENTINEL LYMPH NODE BIOPSY WITH INDOCYANINE GREEN PROTOCOL (Abdomen) ROBOTIC (XI) LAPAROSCOPY OOPHORECTOMY (Bilateral: Abdomen) LYMPHANGIOGRAPHY RADIOACTIVE TRACER FOR IDENTIFICATION SENTINEL NODE (Bilateral) Location: [address] Operating Room Surgeons: Red Valdez MD Relevant Problems No relevant active problems Past Medical History: Past Medical History: No date: GERD (gastroesophageal reflux disease) Past Surgical History: Past Surgical History: No date: BREAST BIOPSY No date: CERVICAL FUSION No date: FOOT SURGERY Comment: crooked toe 2008: OTHER SURGICAL HISTORY Comment: BX BREAST PERC VACUUM/ROTN x2 1992: TOTAL ABDOMINAL HYSTERECTOMY Comment: w/wo rmvl tube ovary Social History: TOBACCO: reports that she quit smoking about 18 years ago. Her smoking use included cigarettes. She has a 10 pack-year smoking history. She has never used smokeless tobacco. ETOH: reports no history of alcohol use. Social History Substance and Sexual Activity Drug Use Never Family History: Family History Problem Relation Name Age of Onset Diabetes Mother Breast cancer Mother Uterine cancer Mother Breast cancer Maternal Grandmother Diabetes Maternal Grandmother Colon cancer Neg Hx Ovarian cancer Neg Hx Screening: Hysterectomy Clinical information reviewed: Tobacco Allergies Meds Med Hx Surg Hx OB Status Fam Hx Soc Hx Physical Exam Airway Mallampati: III TM distance: >3 FB Neck ROM: limited Mouth Open: normalendotracheal tube not in place Cardiovascular Dental Comments: Upper front right permanent bridge Pulmonary Abdominal Anesthesia Plan patient is NPO appropriate Any family history or previous problems with anesthesia no ASA 3 general and regional Any family history or previous problems with anesthesia no(TAP) The patient is not a current smoker. Anesthetic plan and risks discussed with patient and spouse. LOYD Screening Labs: Lab Results Component Value Date WBC 7.0 07/11/2023 HGB 13.2 07/11/2023 HCT 39.8 07/11/2023 MCV 88.9 07/11/2023 PLT 380 07/11/2023 No results found for: NA, K, CL, CO2, BUN, CREATININE, GLUCOSE, CALCIUM, PROT, BILIRUBINFL, ALKPHOS, AST, ALT, EGFR, GLOB Pain Score: Scheduled No echocardiogram results found for the past 14 days No results found for this or any previous visit.[facility] 07-11-2023 Note* Perioperative Nursing Note - Yessy Lew RN - 07/11/2023 9:45 AM EST ORAL AIRWAY D/C'D. [place] [address]-13-2024 Note* Perioperative Nursing Note - Yessy Lew RN - 07/11/2023 9:45 AM EST ORAL AIRWAY D/C'D. [place] [id number] Note* Perioperative Nursing Note - Yessy Lew RN - 07/11/2023 9:21 AM EST Received from OR with oral airway in place. Vitals stable. [address]Miswjw46-70-4037 Note* Perioperative Nursing Note - Yessy Lew RN - 07/11/2023 9:21 AM EST Received from OR with oral airway in place. Vitals stable. [id number] Attending History and physical note* Red Valdez MD - 07/11/2023 8:19 AM EST H&P reviewed. The patient was examined and there are no changes to the H&P. Source Note - Red Valdez MD - 06/19/2023 1:00 PM EST HPI: Audra Lindsey is a pleasant 68 y.o. female who presents in consultation from Dr. Nettles for furtherevaluation and management of postmenopausal bleeding with abnormal MRI of the cervix. She initiallypresented with complaints of postmenopausal bleeding that started a few months ago. The last episodewas about 6 to 8 weeks ago. She states the bleeding was at times spotting, never real heavy, had nomodifying factors, was not associated with bowel or bladder habits or sexual activity. Denies any pain. Went to see her primary care physician because of the postmenopausal bleeding. History of supracervical hysterectomy with USO in her early 30s due to abnormal bleeding. Was not due to malignancy. Patient recently had a Pap smear that was reportedly negative. Underwent an ultrasound followed by MRI. Patient underwent MRI in May that shows a 1.4 cm cervical mass very concerning for possible malignancy. Patient states she has been doing Paps religiously, had 1 abnormal Pap many years ago but more recently they have all been negative. Has been on estrogen replacement therapy for 14 years. This was recently stopped. 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 Denies any personal history of [place] DVT or pulmonary embolism No past medical history on file. Past Surgical History: Procedure Laterality Date OTHER SURGICAL HISTORY 2007 BX BREAST PERC VACUUM/ROTN x2 TOTAL ABDOMINAL HYSTERECTOMY 1992 w/wo rmvl tube ovary Family History Problem Relation Name Age of Onset Diabetes Mother Breast cancer Mother Uterine cancer Mother Breast cancer Maternal Grandmother Diabetes Maternal Grandmother Colon cancer Neg Hx Ovarian cancer Neg Hx Mom and MGM with breast cancer Social History Socioeconomic History Marital status: Unknown Tobacco Use Smoking status: Former Packs/day: 0.50 Years: 20.00 Additional pack years: 0.00 Total pack years: 10.00 Types: Cigarettes Quit date: 2005 Years since quittin.0 Smokeless tobacco: Never Substance and Sexual Activity Alcohol use: Never Drug use: Never Current Outpatient Medications Medication Sig Dispense Refill Multiple Vitamin (multivitamin) tablet Take 1 tablet by mouth daily. No current facility-administered medications for this visit. Allergies as of 06/19/2023 - Reviewed 06/19/2023 Allergen Reaction Noted Augmentin [amoxicillin-pot clavulanate] 06/19/2023 Review of Systems: Review of Systems Constitutional: Negative for unexpected weight change. Gastrointestinal: Negative for abdominal distention and abdominal pain. Genitourinary: Positive for vaginal bleeding. Negative for pelvic pain and vaginal discharge. Hematological: Negative for adenopathy. BP (!) 161/89 Pulse 76 Ht 1.676 m (5' 6) Wt 72.8 kg (160 lb 6.4 oz) BMI 25.89 kg/m Physical Exam: Physical Exam Vitals and nursing note reviewed. Constitutional: Appearance: Normal appearance. Comments: Patient looks younger than her stated age Abdominal: General: Abdomen is flat. Palpations: Abdomen is soft. Comments: Well-healed laparoscopic incisions Genitourinary: General: Normal vulva. Labia: Right: No lesion. Left: No lesion. Urethra: No urethral lesion. Vagina: Normal. No bleeding. Cervix: Normal. No friability, lesion or cervical bleeding. Uterus: Absent. Comments: The cervix and vagina look atrophic. There are nabothian cyst noted on the cervix. The cervix itself is smooth, mobile. It is not hard or indurated. Cervical os is pinpoint. Lymphadenopathy: Lower Body: No right inguinal adenopathy. No left inguinal adenopathy. Skin: General: Skin is warm and dry. Neurological: Mental Status: She is alert. Psychiatric: Mood and Affect: Mood normal. Behavior: Behavior normal. MRI is personally been reviewed, it does show multiple nabothian cyst within the endocervical canalas well as a lesion on the cervix. Differential diagnosis would include most likely nabothian cyst,possible endometrial tissue stimulated by estrogen. ASSESSMENT/PLAN: Diagnosis Plan 1. Abnormal finding on radiology exam 2. PMB (postmenopausal bleeding) Discussed proceeding with robotic trachelectomy. Also removal of her remaining ovary. Discussed risk of major abdominal surgery to include bleeding infection and damage to other organs. All the patient's questions were answered to the best of my ability. Total time spent in review of multiple EMR review of MRI with patient and her coordination of care with operating room scheduling as well as [id number] counseling with patient on day of service was 35 minutes [facility] [id number] Note* Op Note - Red Valdez MD - 07/11/2023 8:19 AM EST Date of surgery July 11, 2023 Preoperative diagnosis cervical mass, postmenopausal bleeding, retained ovary Postop diagnosis same Procedure abdominal trachelectomy, laparoscopic oophorectomy, left side Surgeon José Miguel anesthesia General Description of findings; the cervix was grossly normal. There was a loop of small and large bowel that was adherent to the top of the cervix into abdominally which may accounted for the abnormal MRI findings. The cervix was removed intact, was opened off the field and had no evidence of malignancy.The right ovary was surgically absent. Description of operation patient identified brought to the operating room and after ministration ofgeneral anesthetic underwent abdominal perineal vaginal prep and drape in the lithotomy position using the yellowfin's. A Kimble cath was placed in the bladder sponge stick in the vagina. Using a knife a small incision was made in the left upper quadrant using the 5 mm Optiview blunt port the abdominal cavity was entered under direct vision insufflated with CO2 and then under direct vision da John ports were placed under direct vision. Trendelenburg was then used to get the bowel out of the pelvis and the da John was docked. The left pelvic sidewall was opened the left ureter identified the left ovarian vessels were skeletonized above the ureter coagulated bipolar cautery and divided. The ovary and tube was then removed off the left pelvic sidewall using Bovie dissection. Attention was then turned to the cervix. The anterior peritoneum was incised, the vesicovaginal space was opened and the bladder was dissected inferiorly. The uterosacral ligaments were identified. The ovarian vessels were skeletonized coagulated with bipolar cautery and divided. The upper cardinal ligaments were then gently coagulated, colpotomy incision was then made on top of the sponge stick in the cervix was removed in its entirety through the vagina as well as the left tube and ovary. The cuff is then closed using a running 0 V-Loc suture and the pelvis was irrigated hemostasis noted all instruments removed the abdominal cavity the da John undocked and trocars removed the Kimble was removed with 200 cc of clear urine and she was taken to the cover room in stable condition by anesthesia. Blood loss was minimal. The ports were removed and the defects and skin were closed with subcuticular 4-0 Monocryl and Dermabond. [facility] [id number] Note* Brief Op Note - Red Valdez MD - 07/11/2023 8:19 AM EST Date: 07/11/2023 Location: [facility] OR Name: Audra Lindsey, : 1955, Diagnosis Pre-op Diagnosis * Intra-abdominal and pelvic swelling, mass and lump, unspecified site [R19.00] * Postmenopausal bleeding [N95.0] Post-op Diagnosis * Intra-abdominal and pelvic swelling, mass and lump, unspecified site [R19.00] * Postmenopausal bleeding [N95.0] Procedures ROBOTIC TRACHELECTOMY AND OOPHORECTOMY, POSSIBLE BILATERAL PELVIC SENTINEL LYMPH NODE BIOPSY WITH INDOCYANINE GREEN PROTOCOL 82247 - DC TRACHELECTOMY CERVICECTOMY AMP CERVIX SPX ROBOTIC (XI) LAPAROSCOPY OOPHORECTOMY 98570 - DC LAPAROSCOPY W/RMVL ADNEXAL STRUCTURES LYMPHANGIOGRAPHY RADIOACTIVE TRACER FOR IDENTIFICATION SENTINEL NODE 23587 - DC INJ RADIOACTIVE TRACER FOR ID OF SENTINEL NODE Surgeons * Red Valdez - Primary Procedure Summary Anesthesia: General ASA: III Estimated Blood Loss: Minimal Drains: Urethral Catheter 16 Fr. (Active) Specimens ID Source Type Tests Collected By Collected At Frozen? Priority Lab ID 1 Cervix Tissue TISSUE EXAM Red Valdez MD 07/11/23 0434 Description: CERVIX, LEFT TUBE AND OVARY Staff: Connie Scratcher: Jackie Murray RN Scrub Person: Bertin Chou Findings: benign findings Complications: None; patient tolerated the procedure well. Specimens Collected: Order Name Source Comment Collection Info Order Time POTASSIUM WITH MG REFLEX For patients on dialysis to draw potassium day of surgery 07/11/2023 7:08 AM PROTHROMBIN TIME If patient on coumadin within 4 days prior. 07/11/2023 7:08 AM CBC (HEMOGRAM) Blood, Venous Collected By: Betsy Castrejon RN 07/11/2023 7:08 AM BLOOD TYPE AND SCREEN GEL Blood, Venous HOLD. Specimen is valid for 3 days - nurse to verify valid specimen Collected By: Betsy Castrejon RN 07/11/2023 7:08 AM HCG QUALITATIVE URINE Urine, Clean Catch Discontinue this order if: 1. patient is older than 55 years old 2. has had a prior hysterectomy 3. today's surgery is for treatment of known or suspected ectopic or loss. 4. patient has a known intrauterine but this is a needed surgery. 07/11/2023 7:08 AM TISSUE EXAM Cervix Pre-op diagnosis: Intra-abdominal and pelvic swelling, mass and lump, unspecified site [R19.00] Postmenopausal bleeding [N95.0] Collected By: Red Valdez MD 07/11/2023 9:00 AM Wound Class: Class II: Clean-Contaminated Blood Products: None Prophylactic Antibiotics: Procedure appropriate prophylactic antibiotic(s) given within 1 hour of surgical incision (two hours if receiving Vancomycin or flouroquinolone) [facility] [id number] Note* Op Note - Red Valdez MD - 07/11/2023 8:19 AM EST Date of surgery July 11, 2023 Preoperative diagnosis cervical mass, postmenopausal bleeding, retained ovary Postop diagnosis same Procedure abdominal trachelectomy, laparoscopic oophorectomy, left side Surgeon José Miguel anesthesia General Description of findings; the cervix was grossly normal. There was a loop of small and large bowel that was adherent to the top of the cervix into abdominally which may accounted for the abnormal MRI findings. The cervix was removed intact, was opened off the field and had no evidence of malignancy.The right ovary was surgically absent. Description of operation patient identified brought to the operating room and after ministration ofgeneral anesthetic underwent abdominal perineal vaginal prep and drape in the lithotomy position using the yellowfin's. A Kimble cath was placed in the bladder sponge stick in the vagina. Using a knife a small incision was made in the left upper quadrant using the 5 mm Optiview blunt port the abdominal cavity was entered under direct vision insufflated with CO2 and then under direct vision da John ports were placed under direct vision. Trendelenburg was then used to get the bowel out of the pelvis and the da John was docked. The left pelvic sidewall was opened the left ureter identified the left ovarian vessels were skeletonized above the ureter coagulated bipolar cautery and divided. The ovary and tube was then removed off the left pelvic sidewall using Bovie dissection. Attention was then turned to the cervix. The anterior peritoneum was incised, the vesicovaginal space was opened and the bladder was dissected inferiorly. The uterosacral ligaments were identified. The ovarian vessels were skeletonized coagulated with bipolar cautery and divided. The upper cardinal ligaments were then gently coagulated, colpotomy incision was then made on top of the sponge stick in the cervix was removed in its entirety through the vagina as well as the left tube and ovary. The cuff is then closed using a running 0 V-Loc suture and the pelvis was irrigated hemostasis noted all instruments removed the abdominal cavity the da John undocked and trocars removed the Kimble was removed with 200 cc of clear urine and she was taken to the cover room in stable condition by anesthesia. Blood loss was minimal. The ports were removed and the defects and skin were closed with subcuticular 4-0 Monocryl and Dermabond. [facility] [id number] Note* Brief Op Note - Red Valdez MD - 07/11/2023 8:19 AM EST Date: 07/11/2023 Location: [facility] OR Name: Audra Lindsey, : 1955, Diagnosis Pre-op Diagnosis * Intra-abdominal and pelvic swelling, mass and lump, unspecified site [R19.00] * Postmenopausal bleeding [N95.0] Post-op Diagnosis * Intra-abdominal and pelvic swelling, mass and lump, unspecified site [R19.00] * Postmenopausal bleeding [N95.0] Procedures ROBOTIC TRACHELECTOMY AND OOPHORECTOMY, POSSIBLE BILATERAL PELVIC SENTINEL LYMPH NODE BIOPSY WITH INDOCYANINE GREEN PROTOCOL 07324 - DC TRACHELECTOMY CERVICECTOMY AMP CERVIX SPX ROBOTIC (XI) LAPAROSCOPY OOPHORECTOMY 16402 - DC LAPAROSCOPY W/RMVL ADNEXAL STRUCTURES LYMPHANGIOGRAPHY RADIOACTIVE TRACER FOR IDENTIFICATION SENTINEL NODE 91724 - DC INJ RADIOACTIVE TRACER FOR ID OF SENTINEL NODE Surgeons * Red Valdez - Primary Procedure Summary Anesthesia: General ASA: III Estimated Blood Loss: Minimal Drains: Urethral Catheter 16 Fr. (Active) Specimens ID Source Type Tests Collected By Collected At Frozen? Priority Lab ID 1 Cervix Tissue TISSUE EXAM Red Valdez MD 07/11/23 0859 Description: CERVIX, LEFT TUBE AND OVARY Staff: Connie Scratcher: Jackie Murray RN Scrub Person: Bertin Chou Findings: benign findings Complications: None; patient tolerated the procedure well. Specimens Collected: Order Name Source Comment Collection Info Order Time POTASSIUM WITH MG REFLEX For patients on dialysis to draw potassium day of surgery 07/11/2023 7:08 AM PROTHROMBIN TIME If patient on coumadin within 4 days prior. 07/11/2023 7:08 AM CBC (HEMOGRAM) Blood, Venous Collected By: Betsy Castrejon RN 07/11/2023 7:08 AM BLOOD TYPE AND SCREEN GEL Blood, Venous HOLD. Specimen is valid for 3 days - nurse to verify valid specimen Collected By: Betsy Castrejon RN 07/11/2023 7:08 AM HCG QUALITATIVE URINE Urine, Clean Catch Discontinue this order if: 1. patient is older than 55 years old 2. has had a prior hysterectomy 3. today's surgery is for treatment of known or suspected ectopic or loss. 4. patient has a known intrauterine but this is a needed surgery. 07/11/2023 7:08 AM TISSUE EXAM Cervix Pre-op diagnosis: Intra-abdominal and pelvic swelling, mass and lump, unspecified site [R19.00] Postmenopausal bleeding [N95.0] Collected By: Red Valdez MD 07/11/2023 9:00 AM Wound Class: Class II: Clean-Contaminated Blood Products: None Prophylactic Antibiotics: Procedure appropriate prophylactic antibiotic(s) given within 1 hour of surgical incision (two hours if receiving Vancomycin or flouroquinolone) [id number] History and physical note* Red Valdez MD - 07/11/2023 8:19 AM EST H&P reviewed. The patient was examined and there are no changes to the H&P. Source Note - Red Valdez MD - 06/19/2023 1:00 PM EST HPI: Audra Lindsey is a pleasant 68 y.o. female who presents in consultation from Dr. Nettles for furtherevaluation and management of postmenopausal bleeding with abnormal MRI of the cervix. She initiallypresented with complaints of postmenopausal bleeding that started a few months ago. The last episodewas about 6 to 8 weeks ago. She states the bleeding was at times spotting, never real heavy, had nomodifying factors, was not associated with bowel or bladder habits or sexual activity. Denies any pain. Went to see her primary care physician because of the postmenopausal bleeding. History of supracervical hysterectomy with USO in her early 30s due to abnormal bleeding. Was not due to malignancy. Patient recently had a Pap smear that was reportedly negative. Underwent an ultrasound followed by MRI. Patient underwent MRI in May that shows a 1.4 cm cervical mass very concerning for possible malignancy. Patient states she has been doing Paps religiously, had 1 abnormal Pap many years ago but more recently they have all been negative. Has been on estrogen replacement therapy for 14 years. This was recently stopped. 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 Denies any personal history of [place] DVT or pulmonary embolism No past medical history on file. Past Surgical History: Procedure Laterality Date OTHER SURGICAL HISTORY 2007 BX BREAST PERC VACUUM/ROTN x2 TOTAL ABDOMINAL HYSTERECTOMY 1992 w/wo rmvl tube ovary Family History Problem Relation Name Age of Onset Diabetes Mother Breast cancer Mother Uterine cancer Mother Breast cancer Maternal Grandmother Diabetes Maternal Grandmother Colon cancer Neg Hx Ovarian cancer Neg Hx Mom and MGM with breast cancer Social History Socioeconomic History Marital status: Unknown Tobacco Use Smoking status: Former Packs/day: 0.50 Years: 20.00 Additional pack years: 0.00 Total pack years: 10.00 Types: Cigarettes Quit date: 2005 Years since quittin.0 Smokeless tobacco: Never Substance and Sexual Activity Alcohol use: Never Drug use: Never Current Outpatient Medications Medication Sig Dispense Refill Multiple Vitamin (multivitamin) tablet Take 1 tablet by mouth daily. No current facility-administered medications for this visit. Allergies as of 06/19/2023 - Reviewed 06/19/2023 Allergen Reaction Noted Augmentin [amoxicillin-pot clavulanate] 06/19/2023 Review of Systems: Review of Systems Constitutional: Negative for unexpected weight change. Gastrointestinal: Negative for abdominal distention and abdominal pain. Genitourinary: Positive for vaginal bleeding. Negative for pelvic pain and vaginal discharge. Hematological: Negative for adenopathy. BP (!) 161/89 Pulse 76 Ht 1.676 m (5' 6) Wt 72.8 kg (160 lb 6.4 oz) BMI 25.89 kg/m Physical Exam: Physical Exam Vitals and nursing note reviewed. Constitutional: Appearance: Normal appearance. Comments: Patient looks younger than her stated age Abdominal: General: Abdomen is flat. Palpations: Abdomen is soft. Comments: Well-healed laparoscopic incisions Genitourinary: General: Normal vulva. Labia: Right: No lesion. Left: No lesion. Urethra: No urethral lesion. Vagina: Normal. No bleeding. Cervix: Normal. No friability, lesion or cervical bleeding. Uterus: Absent. Comments: The cervix and vagina look atrophic. There are nabothian cyst noted on the cervix. The cervix itself is smooth, mobile. It is not hard or indurated. Cervical os is pinpoint. Lymphadenopathy: Lower Body: No right inguinal adenopathy. No left inguinal adenopathy. Skin: General: Skin is warm and dry. Neurological: Mental Status: She is alert. Psychiatric: Mood and Affect: Mood normal. Behavior: Behavior normal. MRI is personally been reviewed, it does show multiple nabothian cyst within the endocervical canalas well as a lesion on the cervix. Differential diagnosis would include most likely nabothian cyst,possible endometrial tissue stimulated by estrogen. ASSESSMENT/PLAN: Diagnosis Plan 1. Abnormal finding on radiology exam 2. PMB (postmenopausal bleeding) Discussed proceeding with robotic trachelectomy. Also removal of her remaining ovary. Discussed risk of major abdominal surgery to include bleeding infection and damage to other organs. All the patient's questions were answered to the best of my ability. Total time spent in review of multiple EMR review of MRI with patient and her coordination of care with operating room scheduling as well as [id number] counseling with patient on day of service was 35 minutes documented in this [facility]02-13-2024 Hospital Discharge instructions* Discharge Instructions* Elma Borja DO - 07/11/2023 8:13 AM EST Please follow your post operative care instructions given to you by your [facility] Oncologist's office at your pre operative visit. Please call the office with questions or concerns and be sure to follow up at your scheduled post operative visit. * Attachments The following attachments cannot be sent through Care Everywhere. * Oophorectomy Discharge Instructions (Lithuanian) documented in this [facility]01-26-2024 Telephone encounter Note* Telephone Encounter - Dianne Vicente - 06/23/2023 2:15 PM EST Patient calling pre testing to r/s PAT [id number] Miscellaneous Notes* Telephone Encounter - Dianne Vicente - 06/23/2023 2:15 PM EST Patient calling pre testing to r/s PAT * Telephone Encounter - Gala Shaw - 06/23/2023 11:45 AM EST Patient mentioned that jun 6 for her PAT call will not work. Patient wants to know if there is an earlier time on Jul 04. Patient would like a call back. * Telephone Encounter - Dianne Vicente - 06/20/2023 10:29 AM EST PAT: 02.06.2023 at 9 am SX: 02.13.2023 at 9 am arrival at 7 am Post op 03.04.2023 at 11:30 am Folder and instructions given. documented in this [facility]01-26-2024 Telephone encounter Note* Telephone Encounter - Gala Shaw - 06/23/2023 11:45 AM EST Patient mentioned that jun 6 for her PAT call will not work. Patient wants to know if there is an earlier time on Jul 04. Patient would like a call back. [id number] Telephone encounter Note* Telephone Encounter - Dianne Vicente - 06/20/2023 10:29 AM EST PAT: 02..2023 at 9 am SX: 02.13.2023 at 9 am arrival at 7 am Post op 03.04.2023 at 11:30 am Folder and instructions given. [facility] [id number] Miscellaneous Notes* Telephone Encounter - Dianne Vicente - 06/20/2023 10:29 AM EST PAT: 02..2023 at 9 am SX: 02.13.2023 at 9 am arrival at 7 am Post op 03.04.2023 at 11:30 am Folder and instructions given. documented in this [facility]01-22-2024 NoteHPI: Audra Lindsey is a pleasant 68 y.o. female who presents in consultation from Dr. Nettles for further evaluation and management of postmenopausal bleeding with abnormal MRI of the cervix. She initiallypresented with complaints of postmenopausal bleeding that started a few months ago. The last episode was about 6 to 8 weeks ago. She states the bleeding was at times spotting, never real heavy, had no modifying factors, was not associated with bowel or bladder habits or sexual activity. Denies any pain. Went to see her primary care physician because of the postmenopausal bleeding. History of supracervical hysterectomy with USO in her early 30s due to abnormal bleeding. Was not due to malignancy. Patient recently had a Pap smear that was reportedly negative. Underwent an ultrasound followed by MRI. Patient underwent MRI in May that shows a 1.4 cm cervical mass very concerning for possible malignancy. Patient states she has been doing Paps religiously, had 1 abnormal Pap many years ago but more recently they have all been negative. Has been on estrogen replacement therapy for 14 years. This was recently stopped. 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 Denies any personal history of [place] DVT or pulmonary embolism No past medical history on file. Past Surgical History: Procedure Laterality Date OTHER SURGICAL HISTORY 2007 BX BREAST PERC VACUUM/ROTN x2 TOTAL ABDOMINAL HYSTERECTOMY 1992 w/wo rmvl tube ovary Family History Problem Relation Name Age of Onset Diabetes Mother Breast cancer Mother Uterine cancer Mother Breast cancer Maternal Grandmother Diabetes Maternal Grandmother Colon cancer Neg Hx Ovarian cancer Neg Hx Mom and MGM with breast cancer Social History Socioeconomic History Marital status: Unknown Tobacco Use Smoking status: Former Packs/day: 0.50 Years: 20.00 Additional pack years: 0.00 Total pack years: 10.00 Types: Cigarettes Quit date: 2005 Years since quittin.0 Smokeless tobacco: Never Substance and Sexual Activity Alcohol use: Never Drug use: Never Current Outpatient Medications Medication Sig Dispense Refill Multiple Vitamin (multivitamin) tablet Take 1 tablet by mouth daily. No current facility-administered medications for this visit. Allergies as of 06/19/2023 - Reviewed 06/19/2023 Allergen Reaction Noted Augmentin [amoxicillin-pot clavulanate] 06/19/2023 Review of Systems: Review of Systems Constitutional: Negative for unexpected weight change. Gastrointestinal: Negative for abdominal distention and abdominal pain. Genitourinary: Positive for vaginal bleeding. Negative for pelvic pain and vaginal discharge. Hematological: Negative for adenopathy. BP (!) 161/89 Pulse 76 Ht 1.676 m (5' 6) Wt 72.8 kg (160 lb 6.4 oz) BMI 25.89 kg/m? Physical Exam: Physical Exam Vitals and nursing note reviewed. Constitutional: Appearance: Normal appearance. Comments: Patient looks younger than her stated age Abdominal: General: Abdomen is flat. Palpations: Abdomen is soft. Comments: Well-healed laparoscopic incisions Genitourinary: General: Normal vulva. Labia: Right: No lesion. Left: No lesion. Urethra: No urethral lesion. Vagina: Normal. No bleeding. Cervix: Normal. No friability, lesion or cervical bleeding. Uterus: Absent. Comments: The cervix and vagina look atrophic. There are nabothian cyst noted on the cervix. The cervix itself is smooth, mobile. It is not hard or indurated. Cervical os is pinpoint. Lymphadenopathy: Lower Body: No right inguinal adenopathy. No left inguinal adenopathy. Skin: General: Skin is warm and dry. Neurological: Mental Status: She is alert. Psychiatric: Mood and Affect: Mood normal. Behavior: Behavior normal. MRI is personally been reviewed, it does show multiple nabothian cyst within the endocervical canal as well as a lesion on the cervix. Differential diagnosis would include most likely nabothian cyst, possible endometrial tissue stimulated by estrogen. ASSESSMENT/PLAN: Diagnosis Plan 1. Abnormal finding on radiology exam 2. PMB (postmenopausal bleeding) Discussed proceeding with robotic trachelectomy. Also removal of her remaining ovary. Discussed risk of major abdominal surgery to include bleeding infection and damage to other organs. All the patient's questions were answered to the best of my ability. Total time spent in review of multiple EMR review of MRI with patient and her coordination of care with operating room scheduling as well as [id number] counseling with patient on day of service was 35 minutes [facility] [id number] NoteHPI: Audra Lindsey is a pleasant 68 y.o. female who presents in consultation from Dr. Nettles for further evaluation and management of postmenopausal bleeding with abnormal MRI of the cervix. She initiallypresented with complaints of postmenopausal bleeding that started a few months ago. The last episode was about 6 to 8 weeks ago. She states the bleeding was at times spotting, never real heavy, had no modifying factors, was not associated with bowel or bladder habits or sexual activity. Denies any pain. Went to see her primary care physician because of the postmenopausal bleeding. History of supracervical hysterectomy with USO in her early 30s due to abnormal bleeding. Was not due to malignancy. Patient recently had a Pap smear that was reportedly negative. Underwent an ultrasound followed by MRI. Patient underwent MRI in May that shows a 1.4 cm cervical mass very concerning for possible malignancy. Patient states she has been doing Paps religiously, had 1 abnormal Pap many years ago but more recently they have all been negative. Has been on estrogen replacement therapy for 14 years. This was recently stopped. 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 Denies any personal history of [place] DVT or pulmonary embolism No past medical history on file. Past Surgical History: Procedure Laterality Date OTHER SURGICAL HISTORY 2007 BX BREAST PERC VACUUM/ROTN x2 TOTAL ABDOMINAL HYSTERECTOMY 1992 w/wo rmvl tube ovary Family History Problem Relation Name Age of Onset Diabetes Mother Breast cancer Mother Uterine cancer Mother Breast cancer Maternal Grandmother Diabetes Maternal Grandmother Colon cancer Neg Hx Ovarian cancer Neg Hx Mom and MGM with breast cancer Social History Socioeconomic History Marital status: Unknown Tobacco Use Smoking status: Former Packs/day: 0.50 Years: 20.00 Additional pack years: 0.00 Total pack years: 10.00 Types: Cigarettes Quit date: 2005 Years since quittin.0 Smokeless tobacco: Never Substance and Sexual Activity Alcohol use: Never Drug use: Never Current Outpatient Medications Medication Sig Dispense Refill Multiple Vitamin (multivitamin) tablet Take 1 tablet by mouth daily. No current facility-administered medications for this visit. Allergies as of 06/19/2023 - Reviewed 06/19/2023 Allergen Reaction Noted Augmentin [amoxicillin-pot clavulanate] 06/19/2023 Review of Systems: Review of Systems Constitutional: Negative for unexpected weight change. Gastrointestinal: Negative for abdominal distention and abdominal pain. Genitourinary: Positive for vaginal bleeding. Negative for pelvic pain and vaginal discharge. Hematological: Negative for adenopathy. BP (!) 161/89 Pulse 76 Ht 1.676 m (5' 6) Wt 72.8 kg (160 lb 6.4 oz) BMI 25.89 kg/m? Physical Exam: Physical Exam Vitals and nursing note reviewed. Constitutional: Appearance: Normal appearance. Comments: Patient looks younger than her stated age Abdominal: General: Abdomen is flat. Palpations: Abdomen is soft. Comments: Well-healed laparoscopic incisions Genitourinary: General: Normal vulva. Labia: Right: No lesion. Left: No lesion. Urethra: No urethral lesion. Vagina: Normal. No bleeding. Cervix: Normal. No friability, lesion or cervical bleeding. Uterus: Absent. Comments: The cervix and vagina look atrophic. There are nabothian cyst noted on the cervix. The cervix itself is smooth, mobile. It is not hard or indurated. Cervical os is pinpoint. Lymphadenopathy: Lower Body: No right inguinal adenopathy. No left inguinal adenopathy. Skin: General: Skin is warm and dry. Neurological: Mental Status: She is alert. Psychiatric: Mood and Affect: Mood normal. Behavior: Behavior normal. MRI is personally been reviewed, it does show multiple nabothian cyst within the endocervical canal as well as a lesion on the cervix. Differential diagnosis would include most likely nabothian cyst, possible endometrial tissue stimulated by estrogen. ASSESSMENT/PLAN: Diagnosis Plan 1. Abnormal finding on radiology exam 2. PMB (postmenopausal bleeding) Discussed proceeding with robotic trachelectomy. Also removal of her remaining ovary. Discussed risk of major abdominal surgery to include bleeding infection and damage to other organs. All the patient's questions were answered to the best of my ability. Total time spent in review of multiple EMR review of MRI with patient and her coordination of care with operating room scheduling as well as [id number] counseling with patient on day of service was 35 minutes [facility]01-22-2024 History of Present illness Narrative* Red Valdez MD - 06/19/2023 1:00 PM EST HPI: Audra Lindsey is a pleasant 68 y.o. female who presents in consultation from Dr. Nettles for furtherevaluation and management of postmenopausal bleeding with abnormal MRI of the cervix. She initiallypresented with complaints of postmenopausal bleeding that started a few months ago. The last episodewas about 6 to 8 weeks ago. She states the bleeding was at times spotting, never real heavy, had nomodifying factors, was not associated with bowel or bladder habits or sexual activity. Denies any pain. Went to see her primary care physician because of the postmenopausal bleeding. History of supracervical hysterectomy with USO in her early 30s due to abnormal bleeding. Was not due to malignancy. Patient recently had a Pap smear that was reportedly negative. Underwent an ultrasound followed by MRI. Patient underwent MRI in May that shows a 1.4 cm cervical mass very concerning for possible malignancy. Patient states she has been doing Paps religiously, had 1 abnormal Pap many years ago but more recently they have all been negative. Has been on estrogen replacement therapy for 14 years. This was recently stopped. 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 Denies any personal history of [place] DVT or pulmonary embolism No past medical history on file. Past Surgical History: Procedure Laterality Date OTHER SURGICAL HISTORY 2007 BX BREAST PERC VACUUM/ROTN x2 TOTAL ABDOMINAL HYSTERECTOMY 1992 w/wo rmvl tube ovary Family History Problem Relation Name Age of Onset Diabetes Mother Breast cancer Mother Uterine cancer Mother Breast cancer Maternal Grandmother Diabetes Maternal Grandmother Colon cancer Neg Hx Ovarian cancer Neg Hx Mom and MGM with breast cancer Social History Socioeconomic History Marital status: Unknown Tobacco Use Smoking status: Former Packs/day: 0.50 Years: 20.00 Additional pack years: 0.00 Total pack years: 10.00 Types: Cigarettes Quit date: 2005 Years since quittin.0 Smokeless tobacco: Never Substance and Sexual Activity Alcohol use: Never Drug use: Never Current Outpatient Medications Medication Sig Dispense Refill Multiple Vitamin (multivitamin) tablet Take 1 tablet by mouth daily. No current facility-administered medications for this visit. Allergies as of 06/19/2023 - Reviewed 06/19/2023 Allergen Reaction Noted Augmentin [amoxicillin-pot clavulanate] 06/19/2023 Review of Systems: Review of Systems Constitutional: Negative for unexpected weight change. Gastrointestinal: Negative for abdominal distention and abdominal pain. Genitourinary: Positive for vaginal bleeding. Negative for pelvic pain and vaginal discharge. Hematological: Negative for adenopathy. BP (!) 161/89 Pulse 76 Ht 1.676 m (5' 6) Wt 72.8 kg (160 lb 6.4 oz) BMI 25.89 kg/m Physical Exam: Physical Exam Vitals and nursing note reviewed. Constitutional: Appearance: Normal appearance. Comments: Patient looks younger than her stated age Abdominal: General: Abdomen is flat. Palpations: Abdomen is soft. Comments: Well-healed laparoscopic incisions Genitourinary: General: Normal vulva. Labia: Right: No lesion. Left: No lesion. Urethra: No urethral lesion. Vagina: Normal. No bleeding. Cervix: Normal. No friability, lesion or cervical bleeding. Uterus: Absent. Comments: The cervix and vagina look atrophic. There are nabothian cyst noted on the cervix. The cervix itself is smooth, mobile. It is not hard or indurated. Cervical os is pinpoint. Lymphadenopathy: Lower Body: No right inguinal adenopathy. No left inguinal adenopathy. Skin: General: Skin is warm and dry. Neurological: Mental Status: She is alert. Psychiatric: Mood and Affect: Mood normal. Behavior: Behavior normal. MRI is personally been reviewed, it does show multiple nabothian cyst within the endocervical canalas well as a lesion on the cervix. Differential diagnosis would include most likely nabothian cyst,possible endometrial tissue stimulated by estrogen. ASSESSMENT/PLAN: Diagnosis Plan 1. Abnormal finding on radiology exam 2. PMB (postmenopausal bleeding) Discussed proceeding with robotic trachelectomy. Also removal of her remaining ovary. Discussed risk of major abdominal surgery to include bleeding infection and damage to other organs. All the patient's questions were answered to the best of my ability. Total time spent in review of multiple EMR review of MRI with patient and her coordination of care with operating room scheduling as well as [id number]-[id number] counseling with patient on day of service was 35 minutes documented in this [facility]11-13-2023 NotePap Smear Specimen AdequacyNov2022 11:59pmComment.Satisfactory for evaluation.[facility] INTERFACED A#[id number] Mcc[facility] HospitalCom[facility] on above:Satisfactory for evaluation.04-10-2023 NotePap Smear Specimen [facility] 20[facility] 11:59pm Comment.Satisfactory for evaluation.[facility] INTERFACED A#[id number] Mccull[facility] HospitalCom[facility] on above:Satisfactory for evaluation.Evaluation noteNo assessment information availableWOhio State Harding Hospital Work Phone: Evaluation note* Diagnosis Abnormal finding on radiology exam- Primary PMB (postmenopausal bleeding) Postmenopausal bleeding Intra-abdominal and pelvic swelling, mass and lump, unspecified site Postmenopausal bleeding [facility] Diagnosis S/P laparoscopy- Primary Other postprocedural status Intra-abdominal and pelvic swelling, mass and lump, unspecified site Postmenopausal bleeding [facility]* Diagnosis Postoperative visit- Primary documented in this encounter [facility] Discharge instructions Additional Instructions Dr. Ledesma's office will call you Monday to schedule the appointment MondayWOhio State [facility] Hospital Work Phone: Reason for referral (narrative)No reason for referral information availableWOhio State Harding Hospital Work Phone: Family History No Family History Records Found Relationship Condition Age at Onset Recorded Date/T salvatore son Asthma Unknown mother Malignant neoplasm of breast Unknown Hypertension Unknown grandmother Malignant neoplasm of breast Unknown brother Malignant neoplasm Unknown grandfather Malignant neoplasm Unknown uncle Malignant neoplasm Unknown Advance Directives No Advanced Directives Records Found Advance Directive Response Recorded Date/ Time Living Will Yes July 23, 10:38am Power of Mine Laborer Yes July 23, 2020 10:38am Advance Directive Response Recorded Date/ Time Living Will Yes July 23, 9:38am Power of Mine Laborer Yes July 23, 2020 9:38am Documents on File Type Date Recorded Patient Binding Dyer Expl anation Advance Directives and Livin g Will 07/11/2023 7:02 AM Power of Mine Laborer 07/11/2023 7:01 AM Latest Code Status on File Code Status Date Activated Date Inactivated Comments Full Code 07/11/2023 7:08 AM 07/11/2023 2:25 PM Documents on File Type Date Recorded Patient Binding Dyer Expl anation Advance Directives and Livin g Will 07/11/2023 7:02 AM Power of Mine Laborer 07/11/2023 7:01 AM Latest Code Status on File Code Status Date Activated Date Inactivated Comments Full Code 07/11/2023 7:08 AM 07/11/2023 2:25 PM Advance Directive Response Recorded Date/ Time Living Will Yes September 14, 2024 3:06pm Do you have a Healthcare Power of Mine Laborer? Yes September 14, 2024 3:06pm Name of Medical Power of Mine Laborer Xavi September 14, 2024 3:06pm Advance Directive Response Recorded Date/ Time Living Will Yes September 14, 2024 3:06pm Do you have a Healthcare Power of Mine Laborer? Yes September 14, 2024 3:06pm Name of Medical Power of Mine Laborer Xavi September 14, 2024 3:06pm Do you have a Healthcare Power of Mine Laborer? Yes September 17, 2024 1:08pm Chief Complaint and Reason for Visit Chief Complaint SCREENING Chief Complaint SCREENING LUNG NODULES Chief Complaint LUNG NODULES SCREENING EORDER 4 CM NODULE AT 3 OCLOCK. HX OF CYSTS; SCREENING Chief Complaint EORDER Chief Complaint EORDER POSTMENOPAUSAL BLEEDING Chief Complaint EORDER POSTMENOPAUSAL BLEEDING SCREENING Chief Complaint Admit Date SCREENING May 27, 2024 10:21am LAC September 14, 2024 2:2 3pm Chief Complaint Admit Date LAC September 14, 2024 2:2 3pm ED FOLLOW UP September 16, 2024 4:0 0pm POST OP September 24, 2024 1:0 1pm CAST CHANGE September 26, 2024 11:17a m 1 WK F/U October 01, 2024 1:45pm SISKA. October 15, 2024 11:00 am 2 WK F/U October 15, 2024 3:38p m Reason for Visit Admit Date Central slip extensor tendon injury (geoff tonniere) September 16, 2024 4:00pm Central slip extensor tendon injury (geoff tonniere) September 18, 2024 12:19pm Central slip extensor tendon injury (geoff tonniere) September 24, 2024 1:01pm Central slip extensor tendon injury (geoff tonniere) September 26, 2024 11:17am Central slip extensor tendon injury (geoff tonniere) October 01, 2024 1:45pm Chief Complaint Admit Date LAC September 14, 2024 2:2 3pm ED FOLLOW UP September 16, 2024 4:0 0pm POST OP September 24, 2024 1:0 1pm CAST CHANGE September 26, 2024 11:17a m 1 WK F/U October 01, 2024 1:45pm 2 WK F/U October 15, 2024 3:38p m SISKA. October 17, 2024 11:00 am OSTEO October 17, 2024 1:04p m Reason for Visit Admit Date Central slip extensor tendon injury (geoff tonniere) September 16, 2024 4:00pm Central slip extensor tendon injury (geoff tonniere) September 18, 2024 12:19pm Central slip extensor tendon injury (geoff tonniere) September 24, 2024 1:01pm Central slip extensor tendon injury (geoff tonniere) September 26, 2024 11:17am Central slip extensor tendon injury (geoff tonniere) October 01, 2024 1:45pm Central slip extensor tendon injury (geoff tonniere) October 15, 2024 3:38pm Chief Complaint Admit Date LAC September 14, 2024 2:2 3pm ED FOLLOW UP September 16, 2024 4:0 0pm POST OP September 24, 2024 1:0 1pm CAST CHANGE September 26, 2024 11:17a m 1 WK F/U October 01, 2024 1:45pm 2 WK F/U October 15, 2024 3:38p m OSTEO October 17, 2024 1:04p m SISKA. October 30, 2024 10:00 am FOLLOW UP November 11, 2024 3:25 pm Chief Complaint Admit Date LAC September 14, 2024 2:2 3pm ED FOLLOW UP September 16, 2024 4:0 0pm POST OP September 24, 2024 1:0 1pm CAST CHANGE September 26, 2024 11:17a m 1 WK F/U October 01, 2024 1:45pm 2 WK F/U October 15, 2024 3:38p m OSTEO October 17, 2024 1:04p m FOLLOW UP November 11, 2024 3:25 pm SISKA. December 19, 2024 3:00 pm 1 M FU December 20, 2024 1:52 pm Reason for Visit Admit Date Central slip extensor tendon injury (geoff tonniere) September 16, 2024 4:00pm Central slip extensor tendon injury (geoff tonniere) September 18, 2024 12:19pm Central slip extensor tendon injury (geoff tonniere) September 24, 2024 1:01pm Central slip extensor tendon injury (geoff tonniere) September 26, 2024 11:17am Central slip extensor tendon injury (geoff tonniere) October 01, 2024 1:45pm Central slip extensor tendon injury (geoff tonniere) October 15, 2024 3:38pm Central slip extensor tendon injury (geoff tonniere) November 11, 2024 3:25pm Chief Complaint Admit Date FOLLOW UP November 11, 2024 3:25 pm 1 M FU December 20, 2024 1:52 pm SISKA. December 23, 2024 9:00 am Reason for Visit Admit Date Central slip extensor tendon injury (geoff tonniere) November 11, 2024 3:25pm Central slip extensor tendon injury (geoff tonniere) December 20, 2024 1:52pm Summary Purpose Additional Source Comments Goals (unrecognized section and content) Goals may be documented in a n alternate sectionGoals may be documented in an alternate sectionGoals may be documented in an alternate sectionGoals may be documented in an alternate sectionGoals may be documented in an alternate sectionGoals may be documented in an alternate sectionGoals may be documented in an alternate sectionGoals may be documented in an alternate sectionGoals may be documented in an alternate sectionGoals may be documented in an alternate sectionGoals may be documented in an alternate section Care Teams (unrecognized sec tion and content) Team Status: Active Member Role Status Dates Dr. Lazaro Colby MD Family Provider Active Dr. Jose Carlos Nettles MD Primary Care Provider Activ e Team Status: Inactive Member Role Status Dates Dr. Lazaro Colby MD Primary Care Provi jose antonio, Attending Provider, Referring Provider Active Team Status: Inactive Member Role Status Dates Dr. Sam Farris MD Attending Provider, Referring Provider Active Dr. Jose Carlos Nettlse MD Primary Care Provider Activ e Team Status: Active Member Role Status Dates Dr. Jose Carlos Nettles MD Primary Care Provider Activ e Dr. Gutierrez Emerson MD Attending Provider Active Team Status: Inactive Member Role Status Dates Dr. Jose Carlos Nettles MD Primary Care Provider, Attending Provider, Referring Provider Active Team Status: Active Member Role Status Dates Dr. Jose Carlos Nettles MD Primary Care Provider, Attending Provider, Referring Provider Active Team Status: Inactive Member Role Status Dates Dr. Jose Carlos Nettles MD Primary Care Provider Activ rica Navarro NP-Karolyn Attending Provider Active Team Status: Inactive Member Role Status Dates Dr. Jose Carlos Nettles MD Primary Care Provider Activ DAVIAN GomesC Attending Provider, Referring Pr ovider Active Advisory Application Developer Relationship Specialty Start Date End Date Vinay Nettles [address] [place] [address] PCP - General Family Medicine 06/19/23 Red Valdez MD [address] [facility] [address] [place] [address] Consulting Physician Gynecologic Oncology 06/19/23 Advisory Application Developer Relationship Specialty Start Date End Date Vinay Nettles [address] [place] [phone] PCP - General Family Medicine 06/19/23 Red Valdez MD [address] [facility] [facility] [address] [place] [address] Consulting Physician Gynecologic Oncology 06/19/23 Advisory Application Developer Relationship Specialty Start Date End Date Vinay Nettles [address] [place] [phone] PCP - General Family Medicine 06/19/23 Red Valdez MD [address] [facility] [address] [place] [address] Consulting Physician Gynecologic Oncology 06/19/23 Advisory Application Developer Relationship Specialty Start Date End Date Vinay Nettles [address] [place] [phone] PCP - General Family Medicine 06/19/23 Red Valdez MD [address] [facility] [address] [place] [address] Consulting Physician Gynecologic Oncology 06/19/23 Advisory Application Developer Relationship Specialty Start Date End Date Vinay Nettles [address] [place] [phone] PCP - General Family Medicine 06/19/23 Red Valdez MD [address] [place] [address] Consulting Physician Gynecologic Oncology 06/19/23 Denise Henley APRN - CRACKER OFF [address] [place] [address] Nurse Practitioner Nurse Practitioner 07/13/23 Advisory Application Developer Relationship Specialty Start Date End Date Vinay Nettles [address] [place] [phone] PCP - General Family Medicine 06/19/23 Red Valdez MD [address] [facility] [address] [place] [address] Consulting Physician Gynecologic Oncology 06/19/23 Denise Henley APRN - CRACKER OFF [address] [place] [address] Nurse Practitioner Nurse Practitioner 07/13/23 Advisory Application Developer Relationship Specialty Start Date End Date Vinay Nettles [address] [place] [phone] PCP - General Family Medicine 06/19/23 Red Valdez MD [address] [place] [address] Consulting Physician Gynecologic Oncology 06/19/23 Denise Henley APRN - CRACKER OFF [address] [place] [address] Nurse Practitioner Nurse Practitioner 2/15/24 Team Status: Active Member Role Status Dates Dr. Vinay Nettles MD Primary Care Provider Acti ve Team Status: Inactive Member Role Status Dates Dr. Vinay Nettles MD Primary Care Provider Acti ve Start: May 27, 2024 End: May 27, 2024 Dr. Vinay Nettles MD Attending Provider Active Start: May 27, 2024 End: May 27, 2024 Dr. Vinay Nettles MD Referring Provider Active Start: May 27, 2024 End: May 27, 2024 Team Status: Inactive Member Role Status Dates Dr. Vinay Nettles MD Primary Care Provider Acti ve Start: September 14, 2024 End: September 14, 2024 Dr. Gutierrez Rodriguez DO Emergency Provider Active Start: September 14, 2024 End: September 14, 2024 Team Status: Inactive Member Role Status Dates Dr. Vinay Nettles MD Primary Care Provider Acti ve Start: September 14, 2024 End: September 14, 2024 Dr. Gutierrez Rodriguez DO Attending Provider Active Start: September 14, 2024 End: September 14, 2024 Dr. Gutierrez Rodriguez DO Emergency Provider Active Start: September 14, 2024 End: September 14, 2024 Team Status: Inactive Member Role Status Dates Dr. Vinay Nettles MD Primary Care Provider Acti ve Start: September 16, 2024 End: September 16, 2024 Dr. Harshil Ledesma MD Attending Provider Active Start: September 16, 2024 End: September 16, 2024 Dr. Gutierrez Rodriguez DO Referring Provider Active Start: September 16, 2024 End: September 16, 2024 Team Status: Active Member Role Status Dates Dr. Vinay Nettles MD Primary Care Provider Acti ve Start: September 18, 2024 Dr. Harshil Ledesma MD Attending Provider Active Start: September 18, 2024 Dr. Harshil Ledesma MD Referring Provider Active Start: September 18, 2024 Dr. Harshil Ledesma MD Other Provider Active Star t: September 18, 2024 Team Status: Inactive Member Role Status Dates Dr. Vinay Nettles MD Primary Care Provider Acti ve Start: September 18, 2024 End: September 18, 2024 Dr. Harshil Ledesma MD Attending Provider Active Start: September 18, 2024 End: September 18, 2024 Dr. Harshil Ledesma MD Referring Provider Active Start: September 18, 2024 End: September 18, 2024 Team Status: Inactive Member Role Status Dates Dr. Vinay Nettles MD Primary Care Provider Acti ve Start: September 24, 2024 End: September 24, 2024 Dr. Vinay Nettles MD Referring Provider Active Start: September 24, 2024 End: September 24, 2024 Dr. Harshil Ledesma MD Attending Provider Active Start: September 24, 2024 End: September 24, 2024 Team Status: Inactive Member Role Status Dates Dr. Vinay Nettles MD Primary Care Provider Acti ve Start: September 26, 2024 End: September 26, 2024 Dr. Vinay Nettles MD Referring Provider Active Start: September 26, 2024 End: September 26, 2024 Dr. Harshil Ledesma MD Attending Provider Active Start: September 26, 2024 End: September 26, 2024 Team Status: Inactive Member Role Status Dates Dr. Vinay Nettles MD Primary Care Provider Acti ve Start: October 01, 2024 End: October 01, 2024 Dr. Vinay Nettles MD Referring Provider Active Start: October 01, 2024 End: October 01, 2024 Dr. Harshil Ledesma MD Attending Provider Active Start: October 01, 2024 End: October 01, 2024 Team Status: Active Member Role Status Dates Dr. Vinay Nettles MD Primary Care Provider Acti ve Start: October 15, 2024 Dr. Harshil Ledesma MD Attending Provider Active Start: October 15, 2024 Dr. Harshil Ledesma MD Referring Provider Active Start: October 15, 2024 Team Status: Inactive Member Role Status Dates Dr. Vinay Nettles MD Primary Care Provider Acti ve Start: October 15, 2024 End: October 15, 2024 Dr. Vinay Nettles MD Referring Provider Active Start: October 15, 2024 End: October 15, 2024 Dr. Harshil Ledesma MD Attending Provider Active Start: October 15, 2024 End: October 15, 2024 Team Status: Inactive Member Role Status Dates Dr. Vinay Nettles MD Primary Care Provider Acti ve Start: October 17, 2024 End: October 17, 2024 Bertin McMorrow WATER MAIN PIPE LAYER, WATER MAIN PIPE LAYER-C Attending Provider Active Start: October 17, 2024 End: October 17, 2024 Team Status: Active Member Role Status Dates Dr. Vinay Nettles MD Primary Care Provider Acti ve Start: October 17, 2024 Dr. Harshil Ledesma MD Attending Provider Active Start: October 17, 2024 Dr. Harshil Ledesma MD Referring Provider Active Start: October 17, 2024 Team Status: Active Member Role Status Dates Dr. Vinay Nettles MD Primary Care Provider Acti ve Start: October 17, 2024 Bertin McMorrow WATER MAIN PIPE LAYER, WATER MAIN PIPE LAYER-C Attending Provider Active Start: October 17, 2024 Bertin McMorrow WATER MAIN PIPE LAYER, WATER MAIN PIPE LAYER-C Referring Provider Active Start: October 17, 2024 Team Status: Inactive Member Role Status Dates Dr. Vinay Nettles MD Primary Care Provider Acti ve Start: October 17, 2024 End: October 17, 2024 Bertin McMorrow WATER MAIN PIPE LAYER, WATER MAIN PIPE LAYER-C Attending Provider Active Start: October 17, 2024 End: October 17, 2024 Bertin [facility] WATER MAIN PIPE LAYER, WATER MAIN PIPE LAYER-C Referring Provider Active Start: October 17, 2024 End: October 17, 2024 Team Status: Active Member Role Status Dates Dr. Vinay Ntetles MD Primary Care Provider Acti ve Start: October 30, 2024 Dr. Harshil Ledesma MD Attending Provider Active Start: October 30, 2024 Dr. Harshil Ledesma MD Referring Provider Active Start: October 30, 2024 Team Status: Inactive Member Role Status Dates Dr. Vinay Nettles MD Primary Care Provider Acti ve Start: November 11, 2024 End: November 11, 2024 Dr. Vinay Nettles MD Referring Provider Active Start: November 11, 2024 End: November 11, 2024 Dr. Harshil Ledesma MD Attending Provider Active Start: November 11, 2024 End: November 11, 2024 Team Status: Active Member Role/Relationship Status Dates Dr. Vinay Nettles MD Primary Care Provider Acti ve Team Status: Inactive Member Role/Relationship Status Dates Dr. Vinay Nettles MD Primary Care Provider Acti ve Start: September 14, 2024 End: September 14, 2024 Dr. Gutierrez Rodriguez DO Attending Provider Active Start: September 14, 2024 End: September 14, 2024 Dr. Gutierrez Rodriguez DO Emergency Provider Active Start: September 14, 2024 End: September 14, 2024 Team Status: Inactive Member Role/Relationship Status Dates Dr. Vinay Nettles MD Primary Care Provider Acti ve Start: September 16, 2024 End: September 16, 2024 Dr. Harshil Ledesma MD Attending Provider Active Start: September 16, 2024 End: September 16, 2024 Dr. Gutierrez Rodriguez DO Referring Provider Active Start: September 16, 2024 End: September 16, 2024 Team Status: Active Member Role/Relationship Status Dates Dr. Vinay Nettles MD Primary Care Provider Acti ve Start: September 18, 2024 Dr. Harshil Ledesma MD Attending Provider Active Start: September 18, 2024 Dr. Harshil Ledesma MD Referring Provider Active Start: September 18, 2024 Dr. Harshil Ledesma MD Other Provider Active Star t: September 18, 2024 Team Status: Inactive Member Role/Relationship Status Dates Dr. Vinay Nettles MD Primary Care Provider Acti ve Start: September 18, 2024 End: September 18, 2024 Dr. Harshil Ledesma MD Attending Provider Active Start: September 18, 2024 End: September 18, 2024 Dr. Harshil Ledesma MD Referring Provider Active Start: September 18, 2024 End: September 18, 2024 Team Status: Inactive Member Role/Relationship Status Dates Dr. Vinay Nettles MD Primary Care Provider Acti ve Start: September 24, 2024 End: September 24, 2024 Dr. Vinay Nettles MD Referring Provider Active Start: September 24, 2024 End: September 24, 2024 Dr. Harshil Ledesma MD Attending Provider Active Start: September 24, 2024 End: September 24, 2024 Team Status: Inactive Member Role/Relationship Status Dates Dr. Vinay Nettles MD Primary Care Provider Acti ve Start: September 26, 2024 End: September 26, 2024 Dr. Vinay Nettles MD Referring Provider Active Start: September 26, 2024 End: September 26, 2024 Dr. Harshil Ledesma MD Attending Provider Active Start: September 26, 2024 End: September 26, 2024 Team Status: Inactive Member Role/Relationship Status Dates Dr. Vinay Nettles MD Primary Care Provider Acti ve Start: October 01, 2024 End: October 01, 2024 Dr. Vinay Nettles MD Referring Provider Active Start: October 01, 2024 End: October 01, 2024 Dr. Harshil Ledesma MD Attending Provider Active Start: October 01, 2024 End: October 01, 2024 Team Status: Inactive Member Role/Relationship Status Dates Dr. Vinay Nettles MD Primary Care Provider Acti ve Start: October 15, 2024 End: October 15, 2024 Dr. Vinay Nettles MD Referring Provider Active Start: October 15, 2024 End: October 15, 2024 Dr. Harshil Ledesma MD Attending Provider Active Start: October 15, 2024 End: October 15, 2024 Team Status: Inactive Member Role/Relationship Status Dates Dr. Vinay Nettles MD Primary Care Provider Acti ve Start: October 17, 2024 End: October 17, 2024 Bertin Garcia WATER MAIN PIPE LAYER, WATER MAIN PIPE LAYER-C Attending Provider Active Start: October 17, 2024 End: October 17, 2024 Team Status: Inactive Member Role/Relationship Status Dates Dr. Vinay Nettles MD Primary Care Provider Acti ve Start: October 17, 2024 End: October 17, 2024 Bertin Radha WATER MAIN PIPE LAYER, WATER MAIN PIPE LAYER-C Attending Provider Active Start: October 17, 2024 End: October 17, 2024 Bertin Garcia WATER MAIN PIPE LAYER, WATER MAIN PIPE LAYER-C Referring Provider Active Start: October 17, 2024 End: October 17, 2024 Team Status: Inactive Member Role/Relationship Status Dates Dr. Vinay Nettles MD Primary Care Provider Acti ve Start: November 11, 2024 End: November 11, 2024 Dr. Vinay Nettles MD Referring Provider Active Start: November 11, 2024 End: November 11, 2024 Dr. Harshil Ledesma MD Attending Provider Active Start: November 11, 2024 End: November 11, 2024 Team Status: Active Member Role/Relationship Status Dates Dr. Vinay Nettles MD Primary Care Provider Acti ve Start: December 19, 2024 Dr. Harshil Ledesma MD Attending Provider Active Start: December 19, 2024 Dr. Harshil Ledesma MD Referring Provider Active Start: December 19, 2024 Team Status: Inactive Member Role/Relationship Status Dates Dr. Vinay Nettles MD Primary Care Provider Acti ve Start: December 20, 2024 End: December 20, 2024 Dr. Vinay Nettles MD Referring Provider Active Start: December 20, 2024 End: December 20, 2024 Dr. Harshil Ledesma MD Attending Provider Active Start: December 20, 2024 End: December 20, 2024 Team Status: Active Member Role/Relationship Status Dates Dr. Vinay Nettles MD Primary care physician Act nabila Team Status: Inactive Member Role/Relationship Status Dates Dr. Vinay Nettles MD Primary care physician Act nabila Start: November 11, 2024 End: November 11, 2024 Dr. Vinay Nettles MD Referring Provider Active Start: November 11, 2024 End: November 11, 2024 Dr. Harshil Ledesma MD Attending physician Active Start: November 11, 2024 End: November 11, 2024 Team Status: Inactive Member Role/Relationship Status Dates Dr. Vinay Nettles MD Primary care physician Act nabila Start: December 20, 2024 End: December 20, 2024 Dr. Vinay Nettles MD Referring Provider Active Start: December 20, 2024 End: December 20, 2024 Dr. Harshil Ledesma MD Attending physician Active Start: December 20, 2024 End: December 20, 2024 Team Status: Inactive Member Role/Relationship Status Dates Dr. Vinay Nettles MD Primary care physician Act nabila Start: December 23, 2024 End: December 23, 2024 Dr. Harshil Ledesma MD Attending physician Active Start: December 23, 2024 End: December 23, 2024 Dr. Harshil Ledesma MD Referring Provider Active Start: December 23, 2024 End: December 23, 2024 Reason for Visit (unrecogniz ed section and content) Reason Comments Female Problem Specialty Diagnoses / Procedures Referred By Contac t Referred To Contact Gynecologic Oncology Diagnoses Other intra-abdominal and pelvic swelling, mass and lump Procedures DC OFFICE/OUTPATIENT NEW HIGH MDM 60 MINUTES Vinay Nettles [address] [place] [address] [facility] Cleaning And Washing Equipment Operator Onc [address] [place] [address] Referral ID Status Reason Start Date Expiration Date V isits Requested Visits Authorized [id number] Pending Review 06/07/2023 06/06/2024 1 1 Reason Onset Date Comments surgery scheduling 06/20/2023 Scheduled at [facility] Specialty Diagnoses / Procedures Referred By Erlin reynoso Referred To Contact Diagnoses Intra-abdominal and pelvic swelling, mass and lump, unspecified site Postmenopausal bleeding Intra-abdominal and pelvic swelling, mass and lump, unspecified site [R19.00] Postmenopausal bleeding [N95.0] Procedures DC TRACHELECTOMY CERVICECTOMY AMP CERVIX SPX DC LAPAROSCOPY W/RMVL ADNEXAL STRUCTURES DC INJ RADIOACTIVE TRACER FOR ID OF SENTINEL NODE ROBOTIC TRACHELECTOMY AND OOPHORECTOMY, POSSIBLE BILATERAL PELVIC SENTINEL LYMPH NODE BIOPSY WITH INDOCYANINE GREEN PROTOCOL ROBOTIC (XI) LAPAROSCOPY OOPHORECTOMY LYMPHANGIOGRAPHY RADIOACTIVE TRACER FOR IDENTIFICATION SENTINEL NODE Red Valdez MD [address] [place] [address] [facility] [address] [place] [address] Referral ID Status Reason Start Date Expiration Date Visits Re quested Visits Authorized [id number] 1 1 Reason Comments Post-op Visit 3 weeks No complaint s Scheduled Active and Recently Administ ered Medications (unrecognized section and content) Medication Order 07/09/2023 07/10/2023 07/11/2023 acetaminophen (Tylenol) tablet 1,000 mg (COMPLETED) 1,000 mg, Oral, Once, On Mon07/11/23 at 0715, For 1 dose, Preprocedure, Maximum dose of acetaminophen is 4000 mg from all sources in 24 hours. Do not administer if patient has taken tylenol <4 hours earlier. Do not give if contraindicated ie. patient has active liver disease or cirrhosis. 0728 (Given - Provid er: Betsy Castrejon RN) ceFAZolin in dextrose 4% (Ancef) IVPB 2,000 mg (COMPLETED) 2,000 mg, IntraVENous, Administer over 30 Minutes, Accounts Officer to O.R., On Mon07/11/23 at 0715, For 1 dose, Preprocedure, Administer within 1 hour prior to incision. premix bag, Suspected Indication (Select all that apply): Surgical Prophylaxis 0830 (Given - Provid er: Codi Cramer APRN - FARMWORKER MACHINE) famotidine (Pepcid) tablet 20 mg (COMPLETED) 20 mg, Oral, Once, On Mon07/11/23 at 0715, For 1 dose, Preprocedure 0728 (Given - Provid er: Betsy Castrejon, SMOOTH) gabapentin (Neurontin) capsule 100 mg (COMPLETED) 100 mg, Oral, Once, On Mon07/11/23 at 0715, For 1 dose, Preprocedure, For Age >69 or Low GFR. 0728 (Given - Provid er: Betsy Castrejon, SMOOTH) meperidine (Demerol) injection 12.5 mg (COMPLETED) 12.5 mg, IntraVENous, Once, On Mon07/11/23 at 1145, For 1 dose, Recovery (only), Infuse over 5 minutes. 1145 (Given - Provid er: Yessy Lew RN) sodium chloride 0.9% (NS) flush 10 mL 10 mL, IntraVENous, Every 12 hours scheduled (2 times per day), First dose on Mon07/11/23 at 1030, Recovery (only) 1030 (Canceled Entry - Provider: Automatic Discharge Provider - Comment: Automatically canceled at discontinue of medication order) sodium chloride 0.9% (NS) flush 5-40 mL 5-40 mL, IntraVENous, Every 12 hours, First dose on Mon07/11/23 at 0715, Preprocedure, For Line Patency: Peripheral IV = 5 mL; Midline or Central Line = 10 mL/lumen. If following IV push medication, administer flush at same rate as the IV push. Flush volume is determined by type of infusion therapy being given. For non-viscous solutions use: Peripheral IV = 5 mL Midline or Central Line = 10 mL/lumen For viscous solutions (i.e. blood components, parenteral nutrition, contrast media, or after obtaining blood sample) use: Peripheral IV = 10 mL Midline or Central Line = 20 mL/lumen 0715 (Canceled Entry - Provider: Automatic Discharge Provider - Comment: Automatically canceled at discontinue of medication order) Continuous Medication Order 07/09/2023 07/10/2023 07/11/2023 lactated Ringer's (LR) infusion 50 mL/hr, IntraVENous, Continuous, Starting on Mon07/11/23 at 0715, Preprocedure, Upon admission to sameday - please start iv if patient does not have iv access. Use 500ml NS for patients on dialysis. 0728 (New Bag - Prov ider: Betsy Castrejon RN)08 (Continued by Anesthesia - Provider: Codi Cramer APRN - BECCA)09 (Stopped - Provider: FELICITA Copeland CRNA) lactated ringers infusion 125 mL/hr, IntraVENous, Continuous, Starting on Mon07/11/23 at 1030, Recovery (only) 1030 (Canceled Entry - Provider: Automatic Discharge Provider - Comment: Automatically canceled at discontinue of medication order) PRN Medication Order 07/09/2023 07/10/2023 07/11/2023 diphenhydrAMINE (BENADryl) injection 12.5 mg 12.5 mg, IntraVENous, Once PRN, itching, Starting on Mon07/11/23 at 1020, For 1 dose, Recovery (only) fentaNYL (Sublimaze) injection 25 mcg 25 mcg, IntraVENous, Every 5 min PRN, moderate pain (4-6), Starting on Mon07/11/23 at 1020, For 3 doses, Recovery (only), Phase I and Phase II- Initial therapy for moderate pain (4-6). Restricted to a 90 minute time frame starting when the patient can verbally state their pain score. If after 2 doses the pain score does not decrease by more than one point, then call the provider. If oral meds are utilized, do not return to initial therapy medications. fentaNYL (Sublimaze) injection 50 mcg 50 mcg, IntraVENous, Every 5 min PRN, severe pain (7-10), Starting on Mon07/11/23 at 1020, For 3 doses, Recovery (only), Phase I and Phase II- Initial therapy for severe pain (7-10). Restricted to a 90 minute time frame starting when the patient can verbally state their pain score. If after 2 doses the pain score does not decrease by more than one point, then call the provider. If oral meds are utilized, do not return to initial therapy medications. hydrALAZINE (Apresoline) injection 5 mg(Linked Group 1) 5 mg, IntraVENous, Every 15 min PRN, high blood pressure, for SBP greater than 160 mmHg for 2 consecutive measurements taken from different sites, Starting on Mon07/11/23 at 1020, For 2 doses, Recovery (only), PRN for SBP > 160 for 2 consecutive measurements, and if one of the following conditions is met: 1) If IV labetolol is ineffective. 2) If HR is under 60. 3) If patient has heart block, COPD or asthma. If both labetalol and hydralazine ineffective, notify anesthesia provider. indocyanine green (IC-Green) injection (CANCELED) As needed, Starting on Mon07/11/23 at 0836, Intraprocedure 0836 (Given - Provid er: Red Valdez MD - Comment: 25MG RECONSTITUTED WITH 20ML STERILE WATER FOR CONCENTRATION 1.25MG/ML. 10ML GIVEN FOR TOTAL 12.5MG) labetalol (Normodyne,Trandate) injection 5 mg(Linked Group 1) 5 mg, IntraVENous, Every 10 min PRN, high blood pressure, for SBP greater than 160 mmHg for 2 consecutive measurements taken from different sites., Starting on Mon07/11/23 at 1020, For 2 doses, Recovery (only), PRN for SBP >160 for 2 consecutive measurements, if HR is 60 or greater. If beta ysabel is contraindicated (HR less than 60, heart block, COPD or asthma) use hydralazine IV order. ondansetron (Zofran) injection 4 mg 4 mg, IntraVENous, Once PRN, nausea, Starting on Mon07/11/23 at 1020, For 1 dose, Recovery (only), Initial antiemetic therapy. oxyCODONE (Roxicodone) immediate release tablet 10 mg(Linked Group 2) 10 mg, Oral, PRN, severe pain (7-10), Starting on Mon07/11/23 at 1020, For 1 dose, Recovery (only), PHASE II oxyCODONE (Roxicodone) immediate release tablet 5 mg(Linked Group 2) 5 mg, Oral, PRN, moderate pain (4-6), Starting on Mon07/11/23 at 1020, For 1 dose, Recovery (only), PHASE II sodium chloride 0.9 % bolus 500 mL 500 mL, IntraVENous, at 1,000 mL/hr, Administer over 0.5 Hours, PRN, Anti-nausea, Starting on Mon07/11/23 at 1020, Recovery (only), Indications: Anti-nausea sodium chloride 0.9 % infusion 5-250 mL/hr, IntraVENous, PRN, if patient receiving piggyback infusions and maintenance fluids are not ordered OR KVO fluids to protect IV site / prevent frequent line interruptions / long duration, Starting on Mon07/11/23 at 0708, Preprocedure, For piggyback infusion, administer at same rate as piggyback for a total of 25 mL. Enter 25 mL into dose field and piggyback rate into rate field of order. If piggyback is infusing at a rate less than 100 mL/hr, enter 25 mL into dose field and 100 mL/hr into rate field of order. For KVO fluids, enter rate of 20 mL/hr or less into rate field of order. sodium chloride 0.9 % infusion 5-250 mL/hr, IntraVENous, PRN, if patient receiving piggyback infusions and maintenance fluids are not ordered OR KVO fluids to protect IV site / prevent frequent line interruptions/ long duration, Starting on Mon07/11/23 at 1020, Recovery (only), For piggyback infusion, administer at same rate as piggyback for a total of 25 mL. Enter 25 mL into dose field and piggyback rate into rate field of order. If piggyback is infusing at a rate less than 100 mL/hr, enter 25 mL into dose field and 100 mL/hr into rate field of order. For KVO fluids, enter rate of 20 mL/hr or less into rate field of order. sodium chloride 0.9 % irrigation solution (CANCELED) As needed, Starting on Mon07/11/23 at 0836, Intraprocedure 0836 (Given - Provid er: Red Valdez MD) sodium chloride 0.9% (NS) flush 10 mL 10 mL, IntraVENous, PRN, line care, Starting on Mon07/11/23 at 1020, Recovery (only), After every IV line use sodium chloride 0.9% (NS) flush 5-40 mL 5-40 mL, IntraVENous, PRN, line care, After every IV line use, Starting on Mon07/11/23 at 0708, Preprocedure, For Line Patency: Peripheral IV = 5 mL; Midline or Central Line = 10 mL/lumen. If following IV push medication, administer flush at same rate as the IV push. Flush volume is determined by type of infusion therapy being given. For non-viscous solutions use: Peripheral IV = 5 mL Midline or Central Line = 10 mL/lumen For viscous solutions (i.e. blood components, parenteral nutrition, contrast media, or after obtaining blood sample) use: Peripheral IV = 10 mL Midline or Central Line = 20 mL/lumen sterile water irrigation solution (CANCELED) As needed, Starting on Mon07/11/23 at 0836, Intraprocedure 0836 (Given - Provid er: Red Valdez MD) Linked Groups Order Group 1: labetalol (Normodyne,Trandate) injection 5 mgJump to med 5 mg, IntraVENous, Every 10 min PRN, high blood pressure, for SBP greater than 160 mmHg for 2 consecutive measurements taken from different sites., Starting on Mon07/11/23 at 1020, For 2 doses, Recovery (only), PRN for SBP >160 for 2 consecutive measurements, if HR is 60 or greater. If beta ysabel is contraindicated (HR less than 60, heart block, COPD or asthma) use hydralazine IV order. Or hydrALAZINE (Apresoline) injection 5 mgJump to med 5 mg, IntraVENous, Every 15 min PRN, high blood pressure, for SBP greater than 160 mmHg for 2 consecutive measurements taken from different sites, Starting on Mon07/11/23 at 1020, For 2 doses, Recovery (only), PRN for SBP > 160 for 2 consecutive measurements, and if one of the following conditions is met: 1) If IV labetolol is ineffective. 2) If HR is under 60. 3) If patient has heart block, COPD or asthma. If both labetalol and hydralazine ineffective, notify anesthesia provider. Group 2: oxyCODONE (Roxicodone) immediate release tablet 5 mgJump to med 5 mg, Oral, PRN, moderate pain (4-6), Starting on Mon07/11/23 at 1020, For 1 dose, Recovery (only), PHASE II Or oxyCODONE (Roxicodone) immediate release tablet 10 mgJump to med 10 mg, Oral, PRN, severe pain (7-10), Starting on Mon07/11/23 at 1020, For 1 dose, Recovery (only), PHASE II INFORMATION SOURCE (unrecogn ized section and content) DATE CREATED AUTHOR 08/01/2023 [facility] DATE CREATED AUTHOR AUTHOR'S ORGANIZ ATION 03/23/2025 [facility] FOR RECORDS PERTAINING TO PATIENTS WHO ARE OR HAVE BEEN ENROLLED IN A CHEMICAL DEPENDENCY/SUBSTANCEABUSE PROGRAM, SOME INFORMATION MAY BE OMITTED. This clinical summary was aggregated from multiple sources. Caution should be exercised in using it in the provision of clinical care. This summary normalizes information from multiple sources, and as a consequence, information in this document may materially change the coding, format and clinical context of patient data. In addition, data may be omitted in some cases. CLINICAL DECISIONS SHOULD BE BASED ON THE PRIMARY CLINICAL RECORDS. [employer] provides no warranty or guarantee of the accuracy or completeness of information in this document.
== END | disposition home or self-care (01) ==
LOC: OPBI 16:05
PROVIDERS: PCP Family Medicine; Referring Provider Family Medicine; Visit Provider Family Medicine
DX: Z12.31 Encounter for screening mammogram for malignant neoplasm of breast (principal)
CPT/HCPCS: 77063; 77067